=== PATIENT | female | born 1970 | race Caucasian/White ===

== ENCOUNTER 2017-08-19 08:32 | Outpatient (RCR) | payer BC ==
[~2017-08-19 08:32] MED LIST: BIRTH CONTROL PO; ENAL20TA PO; FLUO20CA25 PO; HYDR-3583 PO; MULT1CAP27 PO; OMEP20CA6 PO; PANT40TA2 PO
[2017-08-19 08:47] LABS: BASOPHILS # (AUTO) 0.1 10^3/uL (0.0-0.1); BASOPHILS % (AUTO) 1 % (0-10); EOSINOPHILS # (AUTO) 1.7 10^3/uL (0.0-0.3); EOSINOPHILS % (AUTO) 18 % (0-10); HEMATOCRIT 38 % (35-52); HEMOGLOBIN 12.5 G/DL (11.5-16.0); LYMPHOCYTES # (AUTO) 3.8 X 10^3 (1.0-4.0); LYMPHOCYTES % (AUTO) 38 % (12-44); MEAN CORPUSCULAR HEMOGLOBIN 28 PG (25-34); MEAN CORPUSCULAR HGB CONC 33 G/DL (32-36); MEAN CORPUSCULAR VOLUME 85 FL (80-99); MEAN PLATELET VOLUME 10.5 FL (7.4-10.4); MONOCYTES # (AUTO) 0.6 X 10^3 (0.0-1.0); MONOCYTES % (AUTO) 6 % (0-12); NEUTROPHILS # (AUTO) 3.7 X 10^3 (1.8-7.8); NEUTROPHILS % (AUTO) 38 % (42-75); PLATELET COUNT 367 10^3/uL (130-400); RED CELL DISTRIBUTION WIDTH 12.7 % (10.0-14.5); WHITE BLOOD COUNT 9.9 10^3/uL (4.3-11.0)
[2017-08-19 09:02] LABS: ALANINE AMINOTRANSFERASE 22 U/L (0-55); ALBUMIN 3.7 GM/DL (3.2-4.5); ALKALINE PHOSPHATASE 99 U/L (40-136); BILIRUBIN,TOTAL 0.3 MG/DL (0.1-1.0); BUN/CREATININE RATIO 15; CALCIUM 9.7 MG/DL (8.5-10.1); CARBON DIOXIDE 28 MMOL/L (21-32); CHLORIDE 106 MMOL/L (98-107); CREATININE SERUM 0.71 MG/DL (0.60-1.30); GFR ESTIMATED > 60; GLUCOSE 95 MG/DL (70-105); POTASSIUM 4.6 MMOL/L (3.6-5.0); SODIUM 142 MMOL/L (135-145)
[2017-11-05] MEDS ORDERED: ENAL20TA PO (11:17)
[2017-11-05] MEDS ORDERED: FISH1CAP15 PO (11:17)
[2017-11-05] MEDS ORDERED: ETHI1TAB PO (11:17)
[2017-11-05] MEDS ORDERED: NAPR220T66 PO (11:17)
[2017-11-05] MEDS ORDERED: OMEP20TA7 PO (11:17)
[2017-11-12] MEDS ORDERED: OXYC-197 PO (07:33)
== END 2017-11-17 | disposition home or self-care (01) ==
LOC: ONC 08:32
PROVIDERS: ATTEND Internal Medicine Hematology & Oncology
DX: D12.1 Benign neoplasm of appendix (principal); I10 Essential (primary) hypertension; E78.5 Hyperlipidemia, unspecified; Z79.899 Other long term (current) drug therapy
CPT/HCPCS: 36415; 80053; 82378; 85025; 99213

== ENCOUNTER → 2017-08-25 | Outpatient (CLI) | payer BC ==
--- NOTE | 2017-08-25 11:44 | Diagnostic Imaging Report ---
Bilateral screening mammogram 2D views with tomosynthesis The current study was also evaluated with a Computer Aided Detection (CAD) system. INDICATION: Screening. No current complaints stated on the questionnaire. COMPARISON: 08/28/16 FINDINGS: The breasts are composed of scattered fibroglandular densities. Benign-appearing calcifications are seen. Allowing for technique and positional differences, no suspicious change is seen. IMPRESSION: No significant change. ACR BI-RADS Category 2: Benign findings. Result letter will be mailed to the patient. Note: At least 10% of breast cancer is not imaged by mammography. Dictated by: Dictated on workstation # [id number]
== END ==
LOC: RAD 07:11
PROVIDERS: ATTEND Obstetrics & Gynecology
DX: Z12.31 Encounter for screening mammogram for malignant neoplasm of breast (principal)
CPT/HCPCS: 77067

== ENCOUNTER 2017-11-05 11:04 | Outpatient (CLI) | payer BC ==
[~2017-11-05] VITALS: Ht 149.9 cm; Wt 80.6 kg
[2017-11-05] MEDS ORDERED: FISH1CAP15 PO (11:17)
[2017-11-05] MEDS ORDERED: NAPR220T66 PO (11:17)
[2017-11-05] MEDS ORDERED: ETHI1TAB PO (11:17)
[2017-11-05] MEDS ORDERED: OMEP20TA7 PO (11:17)
[2017-11-05] MEDS ORDERED: ENAL20TA PO (11:17)
[2017-11-05 11:21] VITALS: BP 129/90
[2017-11-05 11:54] LABS: BILIRUBIN,URINE NEGATIVE (NEGATIVE); KETONES,URINE NEGATIVE (NEGATIVE); LEUKOCYTE ESTERASE ,URINE 1+ (NEGATIVE); NITRITE,URINE NEGATIVE (NEGATIVE); PH,URINE 8 (5-9); PROTEIN,URINE NEGATIVE (NEGATIVE); UROBILINOGEN,URINE NORMAL (NORMAL)
[2017-11-05 11:55] LABS: BASOPHILS # (AUTO) 0.1 10^3/uL (0.0-0.1); BASOPHILS % (AUTO) 1 % (0-10); EOSINOPHILS # (AUTO) 0.8 10^3/uL (0.0-0.3); EOSINOPHILS % (AUTO) 10 % (0-10); LYMPHOCYTES # (AUTO) 3.2 X 10^3 (1.0-4.0); LYMPHOCYTES % (AUTO) 42 % (12-44); MEAN CORPUSCULAR HEMOGLOBIN 28 PG (25-34); MEAN CORPUSCULAR HGB CONC 33 G/DL (32-36); MEAN CORPUSCULAR VOLUME 83 FL (80-99); MEAN PLATELET VOLUME 10.9 FL (7.4-10.4); MONOCYTES # (AUTO) 0.5 X 10^3 (0.0-1.0); MONOCYTES % (AUTO) 7 % (0-12); NEUTROPHILS # (AUTO) 3.1 X 10^3 (1.8-7.8); NEUTROPHILS % (AUTO) 41 % (42-75); PLATELET COUNT 383 10^3/uL (130-400); RED BLOOD COUNT 4.38 10^6/uL (4.35-5.85); RED CELL DISTRIBUTION WIDTH 12.8 % (10.0-14.5); WHITE BLOOD COUNT 7.7 10^3/uL (4.3-11.0)
[2017-11-05 12:02] LABS: WBC,URINE RARE /HPF
[2017-11-05 12:04] LABS: INR 0.9 (0.8-1.4); PROTHROMBIN TIME PATIENT 12.5 SEC (12.2-14.7)
[2017-11-05 12:20] LABS: ALANINE AMINOTRANSFERASE 16 U/L (0-55); ALBUMIN 3.7 GM/DL (3.2-4.5); ANION GAP 9 MMOL/L (5-14); ASPARTATE AMINO TRANSFERASE 17 U/L (5-34); BILIRUBIN,TOTAL 0.2 MG/DL (0.1-1.0); BLOOD UREA NITROGEN 11 MG/DL (7-18); BUN/CREATININE RATIO 14; CALCIUM 9.4 MG/DL (8.5-10.1); CARBON DIOXIDE 25 MMOL/L (21-32); CHLORIDE 106 MMOL/L (98-107); CREATININE SERUM 0.76 MG/DL (0.60-1.30); GFR ESTIMATED > 60; GLUCOSE 95 MG/DL (70-105); POTASSIUM 4.2 MMOL/L (3.6-5.0); SODIUM 140 MMOL/L (135-145); TOTAL PROTEIN 6.9 GM/DL (6.4-8.2)
[2017-11-05 12:24] LABS: ERYTHROCYTE SEDIMENTATION RATE 20 MM/HR (0-20)
--- NOTE | 2017-11-05 12:31 | Diagnostic Imaging Report ---
INDICATION: Preoperative right total knee arthroplasty. EXAMINATION: Two-view chest 11/05/2017. FINDINGS: The cardiomediastinal silhouette is unremarkable. The pulmonary vasculature is within normal limits. The lungs and pleural spaces are clear. IMPRESSION: No evidence of an acute cardiopulmonary process. Dictated by: Dictated on workstation # [id number]
== END 2017-11-05 13:13 | disposition home or self-care (01) ==
LOC: PREOP 11:04
PROVIDERS: ATTEND Orthopaedic Surgery
DX: Z01.810 Encounter for preprocedural cardiovascular examination (principal); Z01.811 Encounter for preprocedural respiratory examination; Z01.812 Encounter for preprocedural laboratory examination; Z11.2 Encounter for screening for other bacterial diseases; M17.11 Unilateral primary osteoarthritis, right knee; R53.83 Other fatigue
CPT/HCPCS: 36415; 71020; 80053; 81000; 85025; 85610; 85652; 86850; 86900; 86901; 87081; 93005

== ENCOUNTER 2017-11-12 06:00 | Inpatient (IN) | payer BC ==
--- NOTE | 2017-11-04 15:32 | HISTORY AND PHYSICAL ---
DATE OF SERVICE: REASON FOR ADMISSION: This will be for right total knee arthroplasty. HISTORY OF PRESENT ILLNESS: The patient is a 47-year-old female with complaints of right knee pain. She has undergone injections with only temporary relief of her symptoms. She reports activity limitations because of the knee. She denies recent injury, but reports that this has progressed to the point where interfering with activities of daily living. Due to functional impairment and failure to improve with conservative measures, the patient has elected to proceed with surgical intervention. REVIEW OF SYSTEMS: No chest pain. No shortness of breath. No dysuria. PAST MEDICAL HISTORY: Migraines. PAST SURGICAL HISTORY: Appendectomy and . FAMILY HISTORY: Significant for cardiovascular disease, Alzheimer disease, breast cancer. PRIMARY CARE PROVIDER: Dr. Diana. MEDICATIONS: Enalapril, Ocella, Claritin-D, fluoxetine, zolpidem and Aleve. ALLERGIES: SULFA. SOCIAL HISTORY: The patient drinks alcohol socially, but denies tobacco use. RADIOGRAPHS: Reveal complete loss of medial and patellofemoral joint spaces with osteophyte formation in all 3 compartments. PHYSICAL EXAMINATION: GENERAL: The patient is well developed, well nourished, in no acute distress. HEENT: Normocephalic, atraumatic. Pupils are equal, round and reactive to light. Oropharynx is clear. NECK: Supple, no lymphadenopathy. LUNGS: Clear to auscultation bilaterally. HEART: Regular rate and rhythm. ABDOMEN: Soft, nontender, nondistended. EXTREMITIES: The right knee demonstrates patellofemoral crepitus and pain with patellar loading. There is no varus valgus laxity. Negative anterior and posterior drawer. Range of motion 0/3/125. The patient ambulates with an antalgic gait. IMPRESSION: Severe right knee osteoarthritis, unresponsive to conservative measures. PLAN: Right total knee arthroplasty. The risks, benefits, options, ramifications and recovery have been discussed at length with the patient. She understands and wishes to proceed. Job ID: [id number] DocumentID: [id number] Dictated Date: 11/04/2017 13:00:54 Shoe Turner Date: 11/04/2017 15:31:48 Dictated By: MARS ENGLE MD
[~2017-11-12] VITALS: Ht 149.9 cm; Wt 80.6 kg
[~2017-11-12 06:00] MED LIST changes: +ETHI1TAB PO; +FISH1CAP15 PO; +NAPR220T66 PO; +OMEP20TA7 PO
--- OUTSIDE RECORDS SUMMARY | 2017-11-12 06:43 | XMS REPORT ---
Author Author HELGA THOMAS [facility] eClinical[employer] Address Unknown Phone Unavailable Care Team Providers Care Logistics Assistant Name Role Phone HELGA THOMAS Unavailable Allergies No Known Allergies Problems Problem Type Condition Code Onset Dates Condition Status Assessment Encounter for immunization Z23 Active Problem Need for prophylactic vaccination and inoculation, Influenza V04.81 Active Medications No Known Medications Procedures Procedure Coding System Code Date SINGLE IMMUNIZATION ADMIN CPT-4 88634 Aug 12, 2016 FLUARIX QUAD P-FREE 3 AND UP .50 2015 CPT-4 00892 Aug 12, 2016 Results No Known Results Immunizations Vaccine Administration Date FLUARIX QUAD P-FREE 3 AND UP .50 2015Aug 12, 2016 Summary Purpose eClinicalWorks Submission
[2017-11-12] MEDS ORDERED: CEFUROXIME 1.5 GM (ZINACEF) VIAL ONE ×2 (06:44→06:48)
[2017-11-12] MEDS ORDERED: NS (IVPB) 50 ML ONE ×2 (06:44→06:48)
--- OUTSIDE RECORDS SUMMARY | 2017-11-12 06:44 | XMS REPORT | Continuity of Care Document ---
Author Author [facility] Organization [facility] Address Unknown Phone Unavailable Allergies Active Description Code Type Severity Reaction Onset Reported/Identified Relationship to Patient Clinical Status Yes No Known Drug Allergies [id number] Drug Allergy Unknown N/A 03/26/2016 Medications There is no data. Problems Date Dx Coded Attending Type Code Diagnosis Diagnosed By 09/23/2014 FIOR GALVIN, TAMI Curry Ot V76.12 09/06/2015 KATHY GALVIN, JOSE Ot D12.1 09/06/2015 KATHY GALVIN, JOSE Ot E78.5 09/06/2015 KATHY GALVIN, JOSE Ot I10 09/06/2015 KATHY GALVIN, JOSE Ot M25.561 09/06/2015 KATHY GALVIN, JOSE Ot M25.562 09/11/2015 FIOR GALVIN, TAMI Curry Ot Z12.39 09/11/2015 FIOR GALVIN, TAMI Curry Ot Z12.39 09/13/2015 FIOR GALVIN, TAMI Curry Ot Z12.39 09/27/2015 FIOR GALVIN, TAMI Curry Ot Z12.39 03/19/2016 KATHY GALVIN, JOSE Ot D12.1 BENIGN NEOPLASM OF APPENDIX 03/19/2016 JOSE CHAVEZ MD Ot E78.5 HYPERLIPIDEMIA, UNSPECIFIED 03/19/2016 JOSE CHAVEZ MD Ot I10 ESSENTIAL (PRIMARY) HYPERTENSION 03/24/2016 JOSE CHAVEZ MD Ot D12.1 BENIGN NEOPLASM OF APPENDIX 03/24/2016 JOSE CHAVEZ MD Ot E78.5 HYPERLIPIDEMIA, UNSPECIFIED 03/24/2016 JOSE CHAVEZ MD Ot I10 ESSENTIAL (PRIMARY) HYPERTENSION 03/25/2016 FIOR GALVIN, TAMI Curry Ot V76.12 OTH SCREEN MAMMO-MALIGN NEOPLASM OF CARLOS ENRIQUE 03/25/2016 ELIZABETH GALVIN, JOSE R Ot 789.00 ABDOMINAL PAIN, UNSPECIFIED SITE 03/25/2016 ELIZABETH GALVIN, JOSE R Ot 789.59 OTHER ASCITES 03/25/2016 JOSE CHAVEZ MD Ot 153.5 MALIGNANT EARLE APPENDIX 03/25/2016 JOSE CHAVEZ MD Ot 272.4 HYPERLIPIDEMIA NEC/NOS 03/25/2016 JOSE CHAVEZ MD Ot 401.9 HYPERTENSION NOS 03/25/2016 JOSE CHAVEZ MD, Ot V58.69 OTH MED,LT,CURRENT USE 03/25/2016 TAMI CHILDRESS MD, Ot V76.12 OTH SCREEN MAMMO-MALIGN NEOPLASM OF CARLOS ENRIQUE 03/25/2016 TAMI CHILDRESS MD, Ot Z12.39 ENCOUNTER FOR OTH SCREENING FOR MALIGNAN 03/25/2016 JOSE CHAVEZ MD, Ot D12.1 BENIGN NEOPLASM OF APPENDIX 03/25/2016 JOSE CHAVEZ MD Ot E78.5 HYPERLIPIDEMIA, UNSPECIFIED 03/25/2016 JOSE CHAVEZ MD Ot I10 ESSENTIAL (PRIMARY) HYPERTENSION 03/25/2016 JOSE CHAVEZ MD Ot M25.561 PAIN IN RIGHT KNEE 03/25/2016 JOSE CHAVEZ MD Ot M25.562 PAIN IN LEFT KNEE 03/25/2016 JOSE CHAVEZ MD, Ot D12.1 BENIGN NEOPLASM OF APPENDIX 03/25/2016 JOSE CHAVEZ MD Ot E78.5 HYPERLIPIDEMIA, UNSPECIFIED 03/25/2016 JOSE CHAVEZ MD Ot I10 ESSENTIAL (PRIMARY) HYPERTENSION 03/26/2016 NAPOLEON BARRAZA MD Ot K21.9 GASTRO-ESOPHAGEAL REFLUX DISEASE WITHOUT 03/26/2016 NAPOLEON BARRAZA MD Ot Z01.818 ENCOUNTER FOR OTHER PREPROCEDURAL EXAMIN 03/26/2016 NAPOLEON BARRAZA MD Ot Z12.11 ENCOUNTER FOR SCREENING FOR MALIGNANT NE 03/27/2016 NAPOLEON BARRAZA MD Ot K21.9 GASTRO-ESOPHAGEAL REFLUX DISEASE WITHOUT 03/27/2016 NAPOLEON BARRAZA MD Ot Z01.818 ENCOUNTER FOR OTHER PREPROCEDURAL EXAMIN 03/27/2016 NAPOLEON BARRAZA MD Ot Z12.11 ENCOUNTER FOR SCREENING FOR MALIGNANT NE 03/29/2016 NAPOLEON BARRAZA MD Ot K21.0 GASTRO-ESOPHAGEAL REFLUX DISEASE WITH ES 03/29/2016 NAPOLEON BARRAZA MD Ot K29.70 GASTRITIS, UNSPECIFIED, WITHOUT BLEEDING 03/29/2016 NAPOLEON BARRAZA MD Ot K44.9 DIAPHRAGMATIC HERNIA WITHOUT OBSTRUCTION 03/29/2016 NAPOLEON BARRAZA MD Ot K64.0 FIRST DEGREE HEMORRHOIDS 03/29/2016 NAPOLEON BARRAZA MD Ot Z12.11 ENCOUNTER FOR SCREENING FOR MALIGNANT NE 03/29/2016 NAPOLEON BARRAZA MD Ot Z85.038 PERSONAL HISTORY OF MALIGNANT NEOPLASM O 04/01/2016 NAPOLEON BARRAZA MD Ot K21.0 GASTRO-ESOPHAGEAL REFLUX DISEASE WITH ES 04/01/2016 NAPOLEON BARRAZA MD Ot K29.70 GASTRITIS, UNSPECIFIED, WITHOUT BLEEDING 04/01/2016 NAPOLEON BARRAZA MD Ot K44.9 DIAPHRAGMATIC HERNIA WITHOUT OBSTRUCTION 04/01/2016 NAPOLEON BARRAZA MD Ot K64.0 FIRST DEGREE HEMORRHOIDS 04/01/2016 NAPOLEON BARRAZA MD, Ot Z12.11 ENCOUNTER FOR SCREENING FOR MALIGNANT NE 04/01/2016 NAPOLEON BARRAZA MD Ot Z85.038 PERSONAL HISTORY OF MALIGNANT NEOPLASM O 04/09/2016 JOSE CHAVEZ MD Ot D12.1 BENIGN NEOPLASM OF APPENDIX 04/09/2016 JOSE CHAVEZ MD Ot E78.5 HYPERLIPIDEMIA, UNSPECIFIED 04/09/2016 JOSE CHAVEZ MD Ot I10 ESSENTIAL (PRIMARY) HYPERTENSION 04/11/2016 JOSE CHAVEZ MD Ot D12.1 BENIGN NEOPLASM OF APPENDIX 04/11/2016 JOSE CHAVEZ MD Ot E78.5 HYPERLIPIDEMIA, UNSPECIFIED 04/11/2016 JOSE CHAVEZ MD Ot I10 ESSENTIAL (PRIMARY) HYPERTENSION 05/02/2016 JOSE CHAVEZ MD Ot D12.1 BENIGN NEOPLASM OF APPENDIX 05/02/2016 JOSE CHAVEZ MD Ot E78.5 HYPERLIPIDEMIA, UNSPECIFIED 05/02/2016 JOSE CHAVEZ MD Ot I10 ESSENTIAL (PRIMARY) HYPERTENSION 08/22/2016 JOSE CHAVEZ MD Ot D12.1 BENIGN NEOPLASM OF APPENDIX 08/22/2016 JOSE CHAVEZ MD Ot E78.5 HYPERLIPIDEMIA, UNSPECIFIED 08/22/2016 JOSE CHAVEZ MD Ot I10 ESSENTIAL (PRIMARY) HYPERTENSION 08/22/2016 KATHY GALVIN, JOSE Ot Z79.899 OTHER DETENTION (CURRENT) DRUG THERAPY 08/28/2016 TAMI CHILDRESS MD, Ot V76.12 OTH SCREEN MAMMO-MALIGN NEOPLASM OF CARLOS ENRIQUE 08/28/2016 ELIZABETH GALVIN, JOSE R Ot 789.00 ABDOMINAL PAIN, UNSPECIFIED SITE 08/28/2016 ELIZABETH GALVIN, JOSE R Ot 789.59 OTHER ASCITES 08/28/2016 JOSE CHAVEZ MD Ot 153.5 MALIGNANT EARLE APPENDIX 08/28/2016 JOSE CHAVEZ MD Ot 272.4 HYPERLIPIDEMIA NEC/NOS 08/28/2016 JOSE CHAVEZ MD Ot 401.9 HYPERTENSION NOS 08/28/2016 JOSE CHAVEZ MD, Ot V58.69 OTH MED,LT,CURRENT USE 08/28/2016 TAMI CHILDRESS MD, Ot V76.12 OTH SCREEN MAMMO-MALIGN NEOPLASM OF CARLOS ENRIQUE 08/28/2016 TAMI CHILDRESS MD, Ot Z12.39 ENCOUNTER FOR OTH SCREENING FOR MALIGNAN 08/28/2016 JOSE CHAVEZ MD Ot D12.1 BENIGN NEOPLASM OF APPENDIX 08/28/2016 JOSE CHAVEZ MD Ot E78.5 HYPERLIPIDEMIA, UNSPECIFIED 08/28/2016 JOSE CHAVEZ MD Ot I10 ESSENTIAL (PRIMARY) HYPERTENSION 08/28/2016 JOSE CHAVEZ MD Ot M25.561 PAIN IN RIGHT KNEE 08/28/2016 JOSE CHAVEZ MD Ot M25.562 PAIN IN LEFT KNEE 08/28/2016 JOSE CHAVEZ MD Ot D12.1 BENIGN NEOPLASM OF APPENDIX 08/28/2016 JOSE CHAVEZ MD Ot E78.5 HYPERLIPIDEMIA, UNSPECIFIED 08/28/2016 JOSE CHAVEZ MD Ot I10 ESSENTIAL (PRIMARY) HYPERTENSION 08/28/2016 JOSE CHAVEZ MD Ot D12.1 BENIGN NEOPLASM OF APPENDIX 08/28/2016 JOSE CHAVEZ MD Ot E78.5 HYPERLIPIDEMIA, UNSPECIFIED 08/28/2016 JOSE CHAVEZ MD Ot I10 ESSENTIAL (PRIMARY) HYPERTENSION 08/28/2016 JOSE CHAVEZ MD Ot D12.1 BENIGN NEOPLASM OF APPENDIX 08/28/2016 JOSE CHAVEZ MD Ot E78.5 HYPERLIPIDEMIA, UNSPECIFIED 08/28/2016 JOSE CHAVEZ MD Ot I10 ESSENTIAL (PRIMARY) HYPERTENSION 08/28/2016 JOSE CHAVEZ MD Ot Z79.899 OTHER DETENTION (CURRENT) DRUG THERAPY 08/28/2016 TAMI CHILDRESS MD Ot Z12.31 ENCNTR SCREEN MAMMOGRAM FOR MALIGNANT NE 08/29/2016 TAMI CHILDRESS MD Ot Z12.31 ENCNTR SCREEN MAMMOGRAM FOR MALIGNANT NE 09/03/2016 TAMI CHILDRESS MD Ot Z12.31 ENCNTR SCREEN MAMMOGRAM FOR MALIGNANT NE 09/05/2016 JOSE CHAVEZ MD Ot D12.1 BENIGN NEOPLASM OF APPENDIX 09/05/2016 JOSE CHAVEZ MD Ot E78.5 HYPERLIPIDEMIA, UNSPECIFIED 09/05/2016 JOSE CHAVEZ MD Ot I10 ESSENTIAL (PRIMARY) HYPERTENSION 09/05/2016 JOSE CHAVEZ MD Ot Z79.899 OTHER DETENTION (CURRENT) DRUG THERAPY 10/07/2016 JOSE CHAVEZ MD Ot D12.1 BENIGN NEOPLASM OF APPENDIX 10/07/2016 JOSE CHAVEZ MD Ot E78.5 HYPERLIPIDEMIA, UNSPECIFIED 10/07/2016 JOSE CHAVEZ MD Ot I10 ESSENTIAL (PRIMARY) HYPERTENSION 10/07/2016 JOSE CHAVEZ MD Ot Z79.899 OTHER SALES CLOSER (CURRENT) DRUG THERAPY 10/10/2016 Ot 789.59 OTHER ASCITES 08/20/2017 JOSE CHAVEZ MD Ot D12.1 BENIGN NEOPLASM OF APPENDIX 08/20/2017 JOSE CHAVEZ MD Ot E78.5 HYPERLIPIDEMIA, UNSPECIFIED 08/20/2017 JOSE HCAVEZ MD Ot I10 ESSENTIAL (PRIMARY) HYPERTENSION 08/20/2017 JOSE CHAVEZ MD Ot Z79.899 OTHER SALES CLOSER (CURRENT) DRUG THERAPY 09/04/2017 TAMI CHILDRESS MD Ot Z12.31 ENCNTR SCREEN MAMMOGRAM FOR MALIGNANT NE 10/01/2017 JOSE CHAVEZ MD Ot D12.1 BENIGN NEOPLASM OF APPENDIX 10/01/2017 JOSE CHAVEZ MD Ot E78.5 HYPERLIPIDEMIA, UNSPECIFIED 10/01/2017 KATHY GALVIN, JOSE Ot I10 ESSENTIAL (PRIMARY) HYPERTENSION 10/01/2017 JOSE CHAVEZ MD Ot Z79.899 OTHER DETENTION (CURRENT) DRUG THERAPY Procedures There is no data. Results Test Result Range Complete blood count (CBC) with automated white blood cell (WBC) differential - 11/05/17 11:30 Blood leukocytes automated count (number/volume) 7.7 10*3/uL 4.3-11.0 Blood erythrocytes automated count (number/volume) 4.38 10*6/uL 4.35-5.85 Venous blood hemoglobin measurement (mass/volume) 12.2 g/dL 11.5-16.0 Blood hematocrit (volume fraction) 37 % 35-52 Automated erythrocyte mean corpuscular volume 83 [foz_us] 80-99 Automated erythrocyte mean corpuscular hemoglobin (mass per erythrocyte) 28 pg 25-34 Automated erythrocyte mean corpuscular hemoglobin concentration measurement ( mass/volume) 33 g/dL 32-36 Automated erythrocyte distribution width ratio 12.8 % 10.0-14.5 Automated blood platelet count (count/volume) 383 10*3/uL 130-400 Automated blood platelet mean volume measurement 10.9 [foz_us] 7.4-10.4 Automated blood neutrophils/100 leukocytes 41 % 42-75 Automated blood lymphocytes/100 leukocytes 42 % 12-44 Blood monocytes/100 leukocytes 7 % 0-12 Automated blood eosinophils/100 leukocytes 10 % 0-10 Automated blood basophils/100 leukocytes 1 % 0-10 Blood neutrophils automated count (number/volume) 3.1 10*3 1.8-7.8 Blood lymphocytes automated count (number/volume) 3.2 10*3 1.0-4.0 Blood monocytes automated count (number/volume) 0.5 10*3 0.0-1.0 Automated eosinophil count 0.8 10*3/uL 0.0-0.3 Automated blood basophil count (count/volume) 0.1 10*3/uL 0.0-0.1 PT panel in platelet poor plasma by coagulation assay - 11/05/17 11:30 Prothrombin time (PT) in platelet poor plasma by coagulation assay 12.5 s 12.2-14.7 INR in platelet poor plasma or blood by coagulation assay 0.9 0.8-1.4 Comprehensive metabolic panel - 11/05/17 11:30 Serum or plasma sodium measurement (moles/volume) 140 mmol/L 135-145 Serum or plasma potassium measurement (moles/volume) 4.2 mmol/L 3.6-5.0 Serum or plasma chloride measurement (moles/volume) 106 mmol/L 98-107 Carbon dioxide 25 mmol/L 21-32 Serum or plasma anion gap determination (moles/volume) 9 mmol/L 5-14 Serum or plasma urea nitrogen measurement (mass/volume) 11 mg/dL 7-18 Serum or plasma creatinine measurement (mass/volume) 0.76 mg/dL 0.60-1.30 Serum or plasma urea nitrogen/creatinine mass ratio 14 NRG Serum or plasma creatinine measurement with calculation of estimated glomerular filtration rate > NRG Serum or plasma glucose measurement (mass/volume) 95 mg/dL 70-105 Serum or plasma calcium measurement (mass/volume) 9.4 mg/dL 8.5-10.1 Serum or plasma total bilirubin measurement (mass/volume) 0.2 mg/dL 0.1-1.0 Serum or plasma alkaline phosphatase measurement (enzymatic activity/volume) 72 U/L 40-136 Serum or plasma aspartate aminotransferase measurement (enzymatic activity/ volume) 17 U/L 5-34 Serum or plasma alanine aminotransferase measurement (enzymatic activity/volume ) 16 U/L 0-55 Serum or plasma protein measurement (mass/volume) 6.9 g/dL 6.4-8.2 Serum or plasma albumin measurement (mass/volume) 3.7 g/dL 3.2-4.5 Erythrocyte sedimentation rate by westergren method - 11/05/17 11:30 Erythrocyte sedimentation rate by westergren method 20 mm 0-20 Blood type T Indirect antibody screen panel - 11/05/17 11:30 ABO+Rh group ON NRG Blood group antibody screen NEGATIVE NRG Methicillin resistant Staphylococcus aureus (MRSA) screening culture - 11:35 Methicillin resistant Staphylococcus aureus (MRSA) screening culture NEG NRG Complete urinalysis with reflex to culture - 11/05/17 11:40 Urine color determination YELLOW NRG Urine clarity determination CLEAR NRG Urine pH measurement by test strip 8 5-9 Specific gravity of urine by test strip 1.010 1.016- 1.022 Urine protein assay by test strip, semi-quantitative NEGATIVE NEGATIVE Urine glucose detection by automated test strip NEGATIVE NEGATIVE Erythrocytes detection in urine sediment by light microscopy NEGATIVE NEGATIVE Urine ketones detection by automated test strip NEGATIVE NEGATIVE Urine nitrite detection by test strip NEGATIVE NEGATIVE Urine total bilirubin detection by test strip NEGATIVE NEGATIVE Urine urobilinogen measurement by automated test strip (mass/volume) NORMAL NORMAL Urine leukocyte esterase detection by dipstick 1+ NEGATIVE Automated urine sediment erythrocyte count by microscopy (number/high power field) RARE NRG Automated urine sediment leukocyte count by microscopy (number/high power field ) RARE NRG Bacteria detection in urine sediment by light microscopy TRACE NRG Squamous epithelial cells detection in urine sediment by light microscopy 5-10 NRG Crystals detection in urine sediment by light microscopy NONE NRG Casts detection in urine sediment by light microscopy NONE NRG Mucus detection in urine sediment by light microscopy NEGATIVE NRG Complete urinalysis with reflex to culture NO NRG Encounters ACCT No. Visit Date/Time Discharge Status Pt. Type Provider Facility Loc./Unit Complaint [id number] 08/25/2017 07:11:00 08/25/2017 23:59:59 CLS Outpatient TAMI CHILDRESS MD [facility] RAD ROUTINE [id number] 08/19/2017 08:32:00 08/19/2017 23:59:59 CLS Outpatient JOSE CHAVEZ MD [facility] ONC [id number] 08/28/2016 06:55:00 08/28/2016 23:59:59 CLS Outpatient TAMI CHILDRESS MD [facility] RAD ROUTINE [id number] 08/20/2016 08:35:00 08/20/2016 23:59:59 CLS Outpatient JOSE CHAVEZ MD [facility] ONC [id number] 04/10/2016 14:32:00 04/10/2016 23:59:59 CLS Outpatient JOSE CHAVEZ MD [facility] ONC [id number] 03/29/2016 08:57:00 03/29/2016 13:10:00 DIS Outpatient NAPOLEON BARRAZA MD [facility] SDC SCREENING/REFLEX [id number] 03/26/2016 05:33:00 03/26/2016 15:41:00 DIS Outpatient NAPOLEON BARRAZA MD [facility] PREOP SCREENING,REFLEX [id number] 03/18/2016 14:12:00 03/18/2016 23:59:59 CLS Outpatient JOSE CHAVEZ MD [facility] ONC [id number] 09/08/2015 07:08:00 09/08/2015 23:59:59 CLS Outpatient TAMI CHILDRESS MD [facility] RAD SCREENING [id number] 08/15/2015 08:25:00 08/15/2015 23:59:59 CLS Outpatient JOSE CHAVEZ MD [facility] ONC [id number] 09/05/2014 14:37:00 09/05/2014 23:59:59 CLS Outpatient TAMI CHILDRESS MD [facility] RAD SCREENING [id number] 08/15/2014 08:49:00 08/15/2014 23:59:59 CLS Outpatient JOSE CHAVEZ MD [facility] ONC [id number] 05/30/2014 10:45:00 05/30/2014 23:59:59 CLS Outpatient JOSE JOHNSON MD [facility] RAD ABD PAIN, [id number] 09/02/2013 11:04:00 09/02/2013 23:59:59 CLS Outpatient TAMI CHILDRESS MD [facility] RAD ROUTINE [id number] 08/04/2013 14:33:00 08/04/2013 23:59:59 CLS Outpatient [id number] 11/12/2017 08:00:00 TARA ENGLE MD, MARS Contreras RIGHT KNEE OSTEOARTHRITIS [id number] 11/05/2017 11:56:00 Document Registration [id number] 03/26/2016 15:37:00 Document Registration [id number] 05/17/2011 09:35:00 Document Registration
[2017-11-12] MEDS ORDERED: SCOPOLAMINE 1.5 MG (TRANSDERM-SCOP) PATCH TOP ONE (06:45)
[2017-11-12] MEDS ORDERED: ONDANSETRON 4 MG/2 ML (SDV) Z0FRAN IV ONE (06:45)
[2017-11-12] MEDS ORDERED: FAMOTIDINE 20MG/2ML IV (PEPCID) IV ONE (06:45)
[2017-11-12] MEDS ORDERED: CEFUROXIME INJECTION 1,500 MG in NS (IVPB) 50 ML IV ONE (06:45)
[2017-11-12] MEDS ORDERED: SEVOFLURANE (ULTANE) 15 ML INHAL SOLN ONE ×8 (06:46→09:10)
[2017-11-12] MEDS ORDERED: LIDOCAINE PF 2% 5 ML (XYLOCAINE) VIAL ONE (06:46)
[2017-11-12] MEDS ORDERED: DEXAMETHASONE 10 MG/ML (DECADRON) 1 ML VIAL ONE (06:46)
[2017-11-12] MEDS ORDERED: proPOfol 200 MG/20 ML (DIPRIVAN) VIAL IV ONE (06:46)
[2017-11-12] MEDS ORDERED: ONDANSETRON 4 MG/2 ML (SDV) Z0FRAN ONE (06:46)
[2017-11-12] MEDS ORDERED: fentaNYL INJECTION 100 MCG/2 ML AMP ONE ×2 (06:47→07:57)
[2017-11-12] MEDS ORDERED: MIDAZOLAM 2 MG/2 ML (VERSED) VIAL ONE (06:47)
[2017-11-12] MEDS: LACTATED RINGERS 1,000 ML IV PRN ×2 (06:54→07:55)
[2017-11-12] MEDS ORDERED: diphenhydrAMINE 50 MG/ML INJ (BENADRYL) IVP PRN (07:15)
[2017-11-12] MEDS ORDERED: ONDANSETRON 4 MG/2 ML (SDV) Z0FRAN IVP PRN (07:15)
[2017-11-12] MEDS ORDERED: ACETAMINOPHEN 325 MG TABLET/CAPLET (TYLENOL) PO PRN (07:15)
[2017-11-12] MEDS ORDERED: INTRA-ARTICULAR IU ONE ×5 (07:30)
--- NOTE | 2017-11-12 07:31 | Progress Note-Pre Operative ---
Pre-Operative Progress Note H&P Reviewed The H&P was reviewed, patient examined and no changes noted. Date Seen by Provider: Nov 12, 2017 Time Seen by Provider: 07:20 Date H&P Reviewed: Nov 12, 2017 Time H&P Reviewed: 07:11 Pre-Operative Diagnosis: right knee primary osteoarthritis MARS ENGLE MD Nov 12, 2017 07:30
--- NOTE | 2017-11-12 07:31 | Progress Note-Post Operative ---
Post-Operative Progess Note Surgeon (s)/Diesel Inspector (s) Surgeon MARS ENGLE MD Diesel Inspector: Sp Mcghee Pre-Operative Diagnosis right knee primary osteoarthritis Post-Operative Diagnosis right knee primary osteoarthritis Procedure & Operative Findings Date of Procedure 11/12/17 Procedure Performed/Findings right total knee arthroplasty Anesthesia Type GETA Estimated Blood Loss Estimated blood loss (mL): 150 ml Specimens/Packing Specimens Removed none Packing: none MARS ENGLE MD Nov 12, 2017 07:31
[2017-11-12] MEDS ORDERED: OXYC-197 PO (07:33)
--- NOTE | 2017-11-12 07:35 | D/C HH Face to Face Order ---
D/C Face to Face Orders Instructions for Patient Patient Instructions/FollowUp: three weeks Physician to follow Patient: three weeks Discharge Diet for Home: Regular Diet Patient Data-Allergies,Ht & Wt Patient Allergies: Coded Allergies: Sulfa (Sulfonamide Antibiotics) (Verified Allergy, Mild, ITCHING, 11/05/17 ) fentanyl (Unverified Allergy, Unknown, NAUSEA AND VOMITING, 11/12/17) Height (Feet): 4 Height (Inches): 11.00 Weight (Pounds): 177 Weight (Ounces): 11.2 Home Health Need/Face to Face Date of Face to Face: Nov 12, 2017 Clinical Findings: Instability, Muscle weakness, Non or partial weight bearing , Pain with ambulation, Unsteady gait I have seen Pt [id number]: Yes Discharged To: Home Diagnosis/Conditions: right total knee arthroplasty Problems/Diagnosis/Condition: Patient is Homebound due to: Muscle weakness, Pain w/ambulation Homebound Status Due to the above stated illness, injury or surgical procedure (medical condition or diagnosis) and associated clinical findings, the patient is homebound because of his/her inability to leave home except with aid of a supportive device and/or person AND leaving the home requires a considerable and taxing effort or is medically contraindicated. Pt req the following assistanc: [facility] Nursing Orders Home Health Services Order: Physical Therapy-Evaluate & Treat Home Health Infusion Therapy Line Start Date: Nov 12, 2017 Line Start Time: 614 Therapy Orders Therapy Orders: Physical Therapy Therapy Specific Orders: Eval assistive deivces, Teach enviro modifications/ safety, Gait training, Increase strength/endurance, Provider maintenance therapy , Restore ROM Certify Stmt I certify that this patient is under my care and that I, a nurse practitioner or a physician; a senior agricultural assistant working with me, had a face to face encounter that - meets the physician face to face encounter requirements with this patient as dated. MARS ENGLE MD Nov 12, 2017 07:35
[2017-11-12] MEDS ORDERED: morphine INJ 10 MG/ML 1ML (SYR OR VIAL) ONE (07:57)
[2017-11-12] MEDS ORDERED: meTOprolol 5 MG/5 ML (LOPRESSOR) VIAL ONE (09:28)
[2017-11-12] MEDS ORDERED: HYDROmorphone (DILAUDID) 2 MG/ML VIAL IVP PRN (09:30)
[2017-11-12] MEDS: morphine INJ 10 MG/ML 1ML (SYR OR VIAL) IVP PRN ×2 (09:45→09:50)
[2017-11-12] MEDS ORDERED: PROMETHAZINE INJ 25 MG/ML (PHENERGAN) AMP ONE (09:48)
--- NOTE | 2017-11-12 09:50 | Diagnostic Imaging Report ---
INDICATION: Postop evaluation. COMPARISON: None. FINDINGS: Two views of the right knee were obtained. There are postoperative changes of right knee arthroplasty. No unusual lucency or reactive change is seen about the prosthetic components which appear in good position. A Large amount of soft tissue gas is likely postoperative. There are skin susi seen ventral to the knee. IMPRESSION: Recent postoperative changes of right knee arthroplasty without evidence of an acute complicating process. Dictated by: Dictated on workstation # [id number]
[2017-11-12 10:20] VITALS: BP 126/68
[2017-11-12] MEDS: SENNA W/DOCUSATE (SENOKOT S) TABLET PO SCH ×2 (10:39→20:07)
[2017-11-12] MEDS: NS IV 1000 ML 1,000 ML IV SCH ×2 (11:30→15:32)
[2017-11-12 12:00] VITALS: BP 131/71
--- NOTE | 2017-11-12 12:10 | Progress Note-Standard ---
Standard Progress Note Progress Notes/Assess & Plan Date Seen by Provider: Nov 12, 2017 Time Seen by Provider: 12:00 Progress/Assessment & Plan post op check No complaints denies paresthesias Radiographs--HW well positioned without fxs RLE--2 plus DP pulse with brisk cap refill. Intact DF and PF of toes and ankle sensation intact throughout s/p RTKA mobilize as able MARS ENGLE MD Nov 12, 2017 12:10
[2017-11-12] MEDS: oxyCODONE/APAP 5/325MG (PERCOCET 5) TABLET PO PRN (13:01)
--- NOTE | 2017-11-12 13:39 | OPERATIVE REPORT ---
DATE OF SERVICE: 11/12/2017 PREOPERATIVE DIAGNOSIS: Right knee primary osteoarthritis. POSTOPERATIVE DIAGNOSIS: Right knee primary osteoarthritis. PROCEDURE: Right total knee arthroplasty. SURGEON: Emir Engle MD CATTLE SORTER: Sp Mcghee, who assisted throughout the procedure and closed the incision. ANESTHESIA: General endotracheal by Jeffrey Kelly CRNA. TOURNIQUET TIME: 75 minutes at 300 mmHg. ESTIMATED BLOOD LOSS: 150 mL. DRAINS: None. COMPLICATIONS: None. POSTOPERATIVE PLAN: Routine protocol. MATERIALS: MicroPort cemented size 2 femur, cemented size 2 tibia with a 17 mm insert and a cemented size 29 patella. STATEMENT OF MEDICAL NECESSITY: The patient is a 47-year-old female with longstanding progressive right knee pain. She had undergone treatment with extensive conservative modalities including activity modifications, anti-inflammatories and injections. She reported progressive functional impairment and due to failure to improve with conservative measures, the patient elected to proceed with surgical intervention. PROCEDURE: After risks and benefits of the procedure were discussed and questions were answered and informed consent was signed and placed on chart, the operative site was confirmed in pre-op holding area and initialed by the surgeon. The patient was then transported to the operating room and after adequate levels of general endotracheal anesthetic were obtained, time out was called to confirm the operative site. The right lower extremity was then prepped and draped in the usual sterile fashion with the leg elevated and the knee flexed. Tourniquet was inflated to 300 mmHg. A standard anterior approach was utilized. Hemostasis was obtained with cautery. A medial parapatellar arthrotomy was performed leaving a 1 cm cuff on the patella for later reattachment. A subperiosteal release was performed in the proximal medial tibia being careful to stay on the bony surface. The ACL was resected. The intramedullary guide was passed into the femur and the distal cutting block was placed. The distal cut was made and the femur sized to a size 2. The 2 cutting block was placed parallel to the epicondylar axis and cuts were made from posterior to anterior. A subperiosteal release was then performed on the posterior distal femur, being careful to stay on bony surface with a curved osteotome. The intramedullary guide was then passed into the tibia. The cutting block was placed. The drop talya transected the intermalleolar axis and the cut was made. The two baseplate was placed, pinned into position and again the drop talya was felt to be well positioned. The tibia was then prepared with a drill and keel punch. The trochlear cut was made on the femur. Trials were inserted. The patella was prepared using a freehand technique and resecting 10 mm off the undersurface. The peg guide was placed and peg holes were drilled. A 17 mm insert with a PCL release provided full extension, flexion greater than 120 degrees with gravity without difficulty. There was no anterior/posterior or medial/lateral laxity in flexion or extension. No mid flexion laxity was noted. The trials were removed. The joint was irrigated with pulse lavage. The periarticular block was placed in the posterior capsule, medial and lateral retinaculum and extensor mechanism. The joint was further irrigated with pulse lavage. The bone ends were irrigated and dried. The tibial baseplate was cemented into position. Excess cement was removed. The superior surface was irrigated and dried and the polyethylene insert was placed. The distal femur was irrigated and dried and the femoral prosthesis was cemented into position and excessive cement was removed. The knee was brought out into full extension until the cement had cured. The patella was irrigated and dried. The patellar button was cemented in position removing excessive cement. Once the cement had cured, the knee was taken through range of motion. The patella tracked well. There is no varus/valgus laxity or anterior/posterior laxity in flexion or extension. Greater than 120 degrees of flexion was obtained with gravity and full extension was easily obtained. The joint was further irrigated with pulse lavage. Arthrotomy was closed with #2 Tevdek in a [id number] fashion. The knee was flexed. The patella tracked well. The subcutaneous tissues were irrigated using a total of 6 liters throughout the procedure. 0 Vicryl was used for deep subcutaneous tissue, 2-0 Vicryl for the superficial subcutaneous tissue, susi used on the skin. A soft dressing was applied. Tourniquet was deflated. The patient was transferred to the recovery room awake in stable condition. Job ID: [id number] DocumentID: [id number] Dictated Date: 11/12/2017 09:27:11 [employer] Operator Date: 11/12/2017 10:08:04 Dictated By: EMIR ENGLE MD
[2017-11-12] MEDS: CEFUROXIME INJECTION 750 MG in NS (IVPB) 50 ML IV SCH ×2 (15:32→23:06)
--- NOTE | 2017-11-12 15:52 | Physical Therapy Evaluation ---
PT Evaluation-General Medical Diagnosis Admission Date Nov 12, 2017 at 06:00 Medical Diagnosis: right TKA Onset Date: Nov 12, 2017 Therapy Diagnosis Therapy Diagnosis: impaired mobility, strength, endurance, ROM Height/Weight Height (Feet): 4 Height (Inches): 11.00 Weight (Pounds): 177 Weight (Ounces): 11.2 Precautions Precautions/Isolations: Standard Precautions Weight Bear Status Right Lower Extremity: Right Weight Bearing/Tolerated Referral Physician: Sp Mcghee Reason for Referral: Evaluation/Treatment Medical History Additional Medical History PAST MEDICAL HISTORY: Migraines. PAST SURGICAL HISTORY: Appendectomy and . Social History Home: Single Level Current Living Status: Spouse Entry Into Home: Stairs Without Railing PT Steps Into Home: 2 Prior/Core FIM Prior Level of Function Functional [place] Measure 0=Not Assessed/NA 4=Minimal Assistance 1=Total Assistance 5=Supervision or Setup 2=Maximal Assistance 6=Modified [place] 3=Moderate Assistance 7=Complete [place] Bed Mobility: 7 Transfers (B,C,W/C) (FIM): 7 Gait: 7 PT Evaluation-Current Subjective Patient in bed pre tx, agrees to PT, has some pain in her right knee, but she states that it is also numb. She cannot dorsiflex her right foot yet. Pt/Family Goals to be independent at home Objective Patient Orientation: Person, Place, Situation Attachments: Polar Pack, IV ROM/Strength ROM Lower Extremities right knee flexion 80 degrees, extension +3 degrees Strength Lower Extremities NT due to recent surgery Neuromuscular (Tone, Coordination, Reflexes) NT Sensory Vision: Wears Glasses Hearing: Functional Sensation Right Lower Extremit: Impaired Sensation Left Lower Extremity: Intact Sensation Lower Extremities light touch sensation is impaired in the left leg below the knee Transfers Functional [place] Measure 0=Not Assessed/NA 4=Minimal Assistance 1=Total Assistance 5=Supervision or Setup 2=Maximal Assistance 6=Modified [place] 3=Moderate Assistance 7=Complete [place] Transfers (B, C, W/C) (FIM): 4 Scootin Rollin Supine to/from Sit: 5 Sit to/from Stand: 4 cues for hand placement and safety with standing, no complaints of light headedness with standing or sitting Gait Mode of Locomotion: Walk Anticipated Mode of Locomotion: Walk Gait (FIM): 1 Distance: 10' Gait Level of Assist: 4 Gait Persons Needed: 1 Gait Assistive Device: FWW Comments/Gait Description Patient just took a few steps forward and back and then to the side to get near the head of the bed. Patient is able to bear weight through her right leg but she has drop foot and ankle weakness due to nerve block. Balance Sitting Static: Normal Sitting Dynamic: Normal Standing Static: Fair Standing Dynamic: Fair Treatment standard TKA exercises in supine x10 (AP, QS, HS, SAQ, SLR), CPM donned and set at 60/-2 degrees Assessment/Needs Patient has impaired mobility, strength, endurance, ROM post right TKA, nerve block still wearing off Rehab Potential: Fair PT Short Term Goals Short Term Goals Time Frame: Nov 19, 2017 Transfers (B,C,W/C) (FIM): 5 Gait (FIM): 2 Gait Distance Comment: 50' Gait Level of Assist: 4 Gait Assistive Device: FWW PT Plan Problem List Problem List: Activity Tolerance, Functional Strength, Safety, Balance, Gait, Transfer, Bed Mobility, ROM Treatment/Plan Treatment Plan: Continue Plan of Care Treatment Plan: Bed Mobility, Education, Functional Activity Irene, Functional Strength, Gait, Safety, Therapeutic Exercise, Transfers Treatment Duration: Nov 19, 2017 Frequency: 11 times per week Estimated Hrs Per Day: .25 hour per day (15-30') Patient and/or Family Agrees t: Yes Safety Risks/Education Patient Education: Gait Training, Transfer Techniques, Reviewed Precautions, Reviewed Use of Ice, Correct Positioning, Disease Process, Safety Issues Teaching Recipient: Patient Teaching Methods: Demonstration, Discussion Response to Teaching: Reinforcement Needed Discharge Recommendations Plan Patient will perform bed mobility and transfer training, balance and endurance training, functional strengthening, stair training, gait training, and education , to improve functional mobility and independence at home. Therapy D/C Recommendations: Home w/ Family Support Time/GCodes Time In: 1520 Time Out: 1545 Total Billed Treatment Time: 25 Total Billed Treatment 1 visit EVL 15' GT 10' DULCE SOLIZ PT Nov 12, 2017 15:52
[2017-11-12 16:00] VITALS: BP 133/68
[2017-11-12] MEDS: morphine PCA 30 MG/30 ML VIAL IV PRN (19:54)
[2017-11-12 20:00] VITALS: BP 133/71
[2017-11-13 00:17] VITALS: BP 140/81
[2017-11-13] MEDS: NS IV 1000 ML 1,000 ML IV SCH ×2 (01:31→13:33)
[2017-11-13] MEDS: oxyCODONE/APAP 5/325MG (PERCOCET 5) TABLET PO PRN ×7 (01:31→20:37)
[2017-11-13 04:20] VITALS: BP 153/74
[2017-11-13] MEDS: MULTIVIT W/MINERALS TAB (THERAGRAN M) PO SCH (05:52)
[2017-11-13 06:41] LABS: HEMOGLOBIN 10.4 G/DL (11.5-16.0)
--- NOTE | 2017-11-13 07:54 | Progress Note-Standard ---
Standard Progress Note Progress Notes/Assess & Plan Date Seen by Provider: Nov 13, 2017 Time Seen by Provider: 07:53 Progress/Assessment & Plan post op check No complaints denies paresthesias Radiographs--HW well positioned without fxs RLE--2 plus DP pulse with brisk cap refill. Intact DF and PF of toes and ankle sensation intact throughout s/p RTKA mobilize as able Final Diagnosis No complaints Vital Signs Date Time Temp Pulse Resp B/P (MAP) Pulse Ox O2 Delivery O2 Flow Rate FiO2 11/13/17 05:53 20 11/13/17 04:20 98.1 89 18 153/74 (100) 99 Room Air 11/13/17 00:17 98.8 105 20 140/81 (100) 97 Room Air 11/12/17 20:00 99.1 102 20 133/71 (91) 98 Room Air 11/12/17 20:00 Room Air 11/12/17 16:00 98.8 100 20 133/68 (89) 94 Room Air 11/12/17 12:00 98.2 98 20 131/71 (91) 95 Room Air 11/12/17 10:20 98.0 90 20 126/68 (87) 95 Room Air I & O 11/13/17 07:00 Intake Total 3590 ml Output Total 1150 ml Balance 2440 ml Laboratory Tests Test 11/13/17 05:48 Range/Units Hemoglobin 10.4 L 11.5-16.0 G/DL Hematocrit 32 L 35-52 % RLE--dressing intact. No calf tenderness. Neg Otto. NVI distally s/p RTKA PT/OT MARS ENGLE MD Nov 13, 2017 07:54
[2017-11-13 08:00] VITALS: BP 176/91
[2017-11-13] MEDS ORDERED: ASPIRIN E.C. 81 MG (ECOTRIN) TAB PO SCH (08:00)
[2017-11-13] MEDS: ENOXAPARIN 30 MG/0.3 ML (LOVENOX) SYR SC SCH ×2 (08:20→20:36)
[2017-11-13] MEDS: SENNA W/DOCUSATE (SENOKOT S) TABLET PO SCH ×2 (08:21→20:35)
--- NOTE | 2017-11-13 09:11 | Physical Therapy Daily Note ---
PT Daily Note-Current Subjective Patient agrees to PT. c/o 8/10 right knee pain. Pain Numeric Pain Scale: 8 Location: Right Location Body Site: Knee Pain Description: Acute Comment: meds issued Mental Status Patient Orientation: Normal For Age Attachments: IV Transfers Functional [place] Measure 0=Not Assessed/NA 4=Minimal Assistance 1=Total Assistance 5=Supervision or Setup 2=Maximal Assistance 6=Modified [place] 3=Moderate Assistance 7=Complete IndependenceIRFPAI Quality Coding Scale 6 Independent with activity with or without an assistive device 5 Patient requires set up or clean up by helper. Patient completes activity by themselves 4 Supervision or touching assist (CGA). [place] provide cues , steadying assist 3 The helper provides less than half the effort to complete the activity 2 The helper provides more than half the effort to complete the activity 1 Dependent. The helper does all the effort to complete an activity 7 Patient refused to complete or attempt activity 9 The patient did not perform the activity before the current illness or injury 88 Not attempted due to Medical conditions or safety concerns Transfers (B, C, W/C) (FIM): 6 Scootin Supine to/from Sit: 6 Sit to/from Stand: 6 Weight Bearing Right Lower Extremity: Right Weight Bearing/Tolerated Left Lower Extremity: Left Full Weight Bearing Gait Training Gait (FIM): 5 Distance (FIM): 3=150 ft Distance: 250' Gait Level of Assist: 5 Gait Persons Needed: 1 Gait Assistive Device: FWW functional, antalgic gait sequence Exercises Supine Ex: Ankle pumps, Quad Set, Heel Slides, Straight leg raise Supine Reps: 15 Seated Therapy Exercises: Long arc quads Seated Reps: 15 Assessment Current Status: Excellent Progress Patient tolerated treatment very well and returned to bed with CPM and polar pack in place 0-60 degrees. PT Short Term Goals Short Term Goals Time Frame: Nov 19, 2017 Transfers (B,C,W/C) (FIM): 5 Gait (FIM): 2 Gait Distance Comment: 50' Gait Level of Assist: 4 Gait Assistive Device: FWW PT Plan Treatment/Plan Treatment Plan: Continue Plan of Care Treatment Plan: Bed Mobility, Education, Functional Activity Irene, Functional Strength, Gait, Safety, Therapeutic Exercise, Transfers Treatment Duration: Nov 19, 2017 Frequency: 11 times per week Estimated Hrs Per Day: .25 hour per day (15-30') Patient and/or Family Agrees t: Yes Time/GCodes Time In: 840 Time Out: 903 Total Billed Treatment Time: 23 Total Billed Treatment 1 visit EX 15 min GT 8 min LETA MCGARRY PT Nov 13, 2017 09:11
[2017-11-13] MEDS ORDERED: PATIENT MAY USE OWN MEDS, ALL MC SCH (10:30)
[2017-11-13 12:00] VITALS: BP 130/79
--- NOTE | 2017-11-13 13:32 | Physical Therapy Daily Note ---
PT Daily Note-Current Subjective Patient is very agreeable to participate with PT. Pain Numeric Pain Scale: 8 Location: Right Location Body Site: Knee Pain Description: Acute Mental Status Patient Orientation: Normal For Age Attachments: IV Transfers Functional [place] Measure 0=Not Assessed/NA 4=Minimal Assistance 1=Total Assistance 5=Supervision or Setup 2=Maximal Assistance 6=Modified [place] 3=Moderate Assistance 7=Complete IndependenceIRFPAI Quality Coding Scale 6 Independent with activity with or without an assistive device 5 Patient requires set up or clean up by helper. Patient completes activity by themselves 4 Supervision or touching assist (CGA). [place] provide cues , steadying assist 3 The helper provides less than half the effort to complete the activity 2 The helper provides more than half the effort to complete the activity 1 Dependent. The helper does all the effort to complete an activity 7 Patient refused to complete or attempt activity 9 The patient did not perform the activity before the current illness or injury 88 Not attempted due to Medical conditions or safety concerns Transfers (B, C, W/C) (FIM): 6 Scootin Rollin Supine to/from Sit: 6 Sit to/from Stand: 6 Weight Bearing Right Lower Extremity: Right Weight Bearing/Tolerated Left Lower Extremity: Left Full Weight Bearing Gait Training Gait (FIM): 6 Distance (FIM): 3=150 ft Distance: 350' Gait Level of Assist: 6 Gait Assistive Device: FWW reciprocal pattern, antalgic Exercises Supine Ex: Ankle pumps, Quad Set, Heel Slides, Straight leg raise Supine Reps: 15 Seated Therapy Exercises: Long arc quads Seated Reps: 15 Assessment Current Status: Excellent Progress Patient is improving with treatment plan. Patient is highly motivated with progress. PT Short Term Goals Short Term Goals Time Frame: Nov 19, 2017 Transfers (B,C,W/C) (FIM): 5 Gait (FIM): 2 Gait Distance Comment: 50' Gait Level of Assist: 4 Gait Assistive Device: FWW PT Plan Treatment/Plan Treatment Plan: Continue Plan of Care Treatment Plan: Bed Mobility, Education, Functional Activity Irene, Functional Strength, Gait, Safety, Therapeutic Exercise, Transfers Treatment Duration: Nov 19, 2017 Frequency: 11 times per week Estimated Hrs Per Day: .25 hour per day (15-30') Patient and/or Family Agrees t: Yes Time/GCodes Time In: 1300 Time Out: 1323 Total Billed Treatment Time: 23 Total Billed Treatment 1 visit EX 15 min GT 8 min LETA MCGARRY PT Nov 13, 2017 13:32
--- NOTE | 2017-11-13 14:32 | Anesthesia-General Post-Op ---
General Patient Condition Mental Status/LOC: Same as Preop Cardiovascular: Satisfactory Nausea/Vomiting: Absent Respiratory: Satisfactory Pain: Controlled Complications: Absent Post Op Complications Complications None Follow Up Care/Instructions Patient Instructions None needed. Anesthesia/Patient Condition Patient Condition Patient is doing well, no complaints, stable vital signs, no apparent adverse anesthesia problems. No complications reported per nursing. AMANUEL LLANOS CRNA Nov 13, 2017 14:32
--- NOTE | 2017-11-13 14:45 | Occupational Therapy Eval ---
OT Evaluation-General/PLF Medical Diagnosis Admission Date Nov 12, 2017 at 06:00 Medical Diagnosis: right TKA Onset Date: Nov 12, 2017 Therapy Diagnosis Therapy Diagnosis: Decreased ADL skills Height/Weight Height (Feet): 4 Height (Inches): 11.00 Weight (Pounds): 177 Weight (Ounces): 11.2 Precautions Precautions/Isolations: Fall Prevention, Standard Precautions Safety Interventions: Bed Exit Alarm Weight Bear Status Weight Bearing Restriction: Weight Bearing/Tolerated Referral Physician: Sp Mcghee Referral Reason: Activity Tolerance, Self Care, Evaluation/Treatment, Strengthening/ROM Medical History Additional Medical History Appendectomy, Current History Pt. had elective knee surgery Reviewed History: Yes Social History Home: Single Level Current Living Status: Spouse Entry Into Home: Stairs Without Railing Steps Into Home: 2 ADL-Prior Level of Function ADL PLOF Comments Pt. was independent with daily tasks. Pt. works at job in [employer]. DME/Equipment: Bath Chair, Shower DME/Equipment Comments Pt. has a walker Occupation: Pt. states that her job requires her to sit and to stand. Drive Self: Yes OT Current Status Subjective Pt. reports 9/10 pain in right knee. Nursing aware. Appearance Pt. getting back to bed after going to bathroom with assist of nurse aide. Declines shower but agrees to work with OT. Mental Status/Objective Patient Orientation: Person, Place, Time, Situation Current Upper Extremity ROM WFL Upper Extremity Strength WFL ADL-Treatment Functional [place] Measure 0=Not Assessed/NA 4=Minimal Assistance 1=Total Assistance 5=Supervision or Setup 2=Maximal Assistance 6=Modified [place] 3=Moderate Assistance 7=Complete IndependenceIRFPAI Quality Coding Scale 6 Independent with activity with or without an assistive device 5 Patient requires set up or clean up by helper. Patient completes activity by themselves 4 Supervision or touching assist (CGA). [place] provide cues , steadying assist 3 The helper provides less than half the effort to complete the activity 2 The helper provides more than half the effort to complete the activity 1 Dependent. The helper does all the effort to complete an activity 7 Patient refused to complete or attempt activity 9 The patient did not perform the activity before the current illness or injury 88 Not attempted due to Medical conditions or safety concerns Lower Body Dressing (FIM): 2 (Pt. is unable to reach her right foot due to pain and swelling.) Transfers (B, C, W/C) (FIM): 5 (SBA to stand and to get legs into bed.) Other Treatments Pt. declines showering at this time, and is unable to doff/don socks. OT brings in AE and educates pt. on equipment. Pt. has just got food and is back in bed. Equipment left in room for pt. to practice as needed. Will attempt to practice this with her tomorrow. Pt. is also educated about toileting after BM , and toilet tongs if she should need them. Education OT Patient Education: Correct positioning, Modified ADL techniques, Progress toward Goal/Update tx plan, Purpose of tx/functional activities, Reviewed precautions, Rehab process, Transfer techniques, Use of adapted equipment Teaching Recipient: Patient Teaching Methods: Demonstration, Discussion Response to Teaching: Verbalize Understanding, Return Demonstration OT Short Term Goals Short Term Goals Transfers (B,C,W/C) (FIM): 5 1=Demonstrate adherence to instructed precautions during ADL tasks. 2=Patient will verbalize/demonstrate understanding of assistive devices/ modifications for ADL. 3=Patient will improve strength/tolerance for activity to enable patient to perform ADL's. OT Senior Care Goals Tooler Goals Time Frame: Nov 15, 2017 Eating (FIM): 7 Grooming(FIM): 6 Bathing(FIM): 6 Upper Body Dressing(FIM): 6 Lower Body Dressing(FIM): 6 Toileting(FIM): 6 Transfers (B,C,W/C) (FIM): 6 Toilet/Commode Transfer(FIM): 6 Shower Transfer(FIM): 5 Additional Goals: 1-Demonstrate ADL Tasks, 2-Verbalize Understanding, 3- ImproveStrength/Irene 1=Demonstrate adherence to instructed precautions during ADL tasks. 2=Patient will verbalize/demonstrate understanding of assistive devices/ modifications for ADL. 3=Patient will improve strength/tolerance for activity to enable patient to perform ADL's. OT Education/Plan Problem List/Assessment Assessment: Impaired I ADL's, Impaired Self-Care Skills Discharge Recommendations Plan/Recommendations: Continue POC Therapy D/C Recommendations: Home w/ Family Support Equpiment Recommendations-D/C: Hip Kit Treatment Plan/Plan of Care Treatment,Training & Education: Yes Patient would benefit from OT for education, treatment and training to promote independence in ADL's, mobility, safety and/or upper extremity function for ADL' s. Plan of Care: ADL Retraining Treatment Duration: Nov 15, 2017 Frequency: 3 times per week Estimated Hrs Per Day: .5 hour per day Agreement: Yes Rehab Potential: Good Time/GCodes Start Time: 11:35 Stop Time: 11:50 Total Time Billed (hr/min): 15 Billed Treatment Time 1, SUSAN LUCAS OT Nov 13, 2017 14:45
[2017-11-13 16:00] VITALS: BP 120/78
[2017-11-13 19:00] VITALS: BP 129/75
[2017-11-13] MEDS: morphine PCA 30 MG/30 ML VIAL IV PRN (19:37)
[2017-11-13] MEDS ORDERED: NAPROXEN 250 MG (NAPROSYN) TABLET PO SCH (21:00)
[2017-11-14] VITALS: BP 112/62
[2017-11-14] MEDS: oxyCODONE/APAP 5/325MG (PERCOCET 5) TABLET PO PRN ×6 (01:54→20:20)
[2017-11-14] MEDS: NS IV 1000 ML 1,000 ML IV SCH (01:57)
[2017-11-14 04:00] VITALS: BP 123/83
[2017-11-14] MEDS: PANTOPRAZOLE 20 MG TABLET (PROTONIX) PO SCH (06:04)
[2017-11-14] MEDS: MULTIVIT W/MINERALS TAB (THERAGRAN M) PO SCH (06:04)
[2017-11-14 06:52] LABS: HEMOGLOBIN 10.8 G/DL (11.5-16.0)
--- NOTE | 2017-11-14 06:58 | Progress Note-Standard ---
Standard Progress Note Progress Notes/Assess & Plan Date Seen by Provider: Nov 14, 2017 Time Seen by Provider: 06:56 Progress/Assessment & Plan post op check No complaints denies paresthesias Radiographs--HW well positioned without fxs RLE--2 plus DP pulse with brisk cap refill. Intact DF and PF of toes and ankle sensation intact throughout s/p RTKA mobilize as able Final Diagnosis No complaints Vital Signs Date Time Temp Pulse Resp B/P (MAP) Pulse Ox O2 Delivery O2 Flow Rate FiO2 11/14/17 06:00 14 11/14/17 04:00 97.5 101 14 123/83 (96) 96 Room Air 11/14/17 00:00 98.0 110 12 112/62 (79) 99 Room Air 11/13/17 19:00 99.3 109 16 129/75 (93) 96 Room Air 11/13/17 18:20 16 11/13/17 16:00 98.5 96 17 120/78 (92) 97 Room Air 11/13/17 12:00 97.9 99 20 130/79 (96) 97 Room Air 11/13/17 08:00 98.6 85 20 176/91 (119) 98 Room Air I & O 11/14/17 07:00 Intake Total 3234 ml Output Total 3150 ml Balance 84 ml Laboratory Tests Test 11/14/17 06:07 Range/Units RLE--incision clean and dry. No calf tenderness. flexion to 90 s/p RTKA PT/OT likely DC tomorrow MARS ENGLE MD Nov 14, 2017 06:58
[2017-11-14] MEDS ORDERED: morphine INJ 4 MG/ML 1 ML (VIAL/SYRINGE) IVP PRN (07:00)
[2017-11-14 08:00] VITALS: BP 140/81
[2017-11-14] MEDS: ASPIRIN E.C. 81 MG (ECOTRIN) TAB PO SCH (08:54)
[2017-11-14] MEDS: SENNA W/DOCUSATE (SENOKOT S) TABLET PO SCH ×2 (08:54→20:20)
[2017-11-14] MEDS: ENOXAPARIN 30 MG/0.3 ML (LOVENOX) SYR SC SCH ×2 (08:54→20:21)
[2017-11-14] MEDS: NAPROXEN SOD 220 MG PO SCH ×2 (08:55→20:20)
[2017-11-14] MEDS: OMEGA 3 (FISH OIL) 1000 MG CAP PO SCH (08:55)
--- NOTE | 2017-11-14 09:26 | Physical Therapy Daily Note ---
PT Daily Note-Current Subjective Patient is very agreeable to participate with PT. Pain Numeric Pain Scale: 3 Location: Right Location Body Site: Knee Pain Description: Ache, Acute Mental Status Patient Orientation: Normal For Age Transfers Functional [place] Measure 0=Not Assessed/NA 4=Minimal Assistance 1=Total Assistance 5=Supervision or Setup 2=Maximal Assistance 6=Modified [place] 3=Moderate Assistance 7=Complete IndependenceIRFPAI Quality Coding Scale 6 Independent with activity with or without an assistive device 5 Patient requires set up or clean up by helper. Patient completes activity by themselves 4 Supervision or touching assist (CGA). [place] provide cues , steadying assist 3 The helper provides less than half the effort to complete the activity 2 The helper provides more than half the effort to complete the activity 1 Dependent. The helper does all the effort to complete an activity 7 Patient refused to complete or attempt activity 9 The patient did not perform the activity before the current illness or injury 88 Not attempted due to Medical conditions or safety concerns Transfers (B, C, W/C) (FIM): 6 Scootin Sit to/from Stand: 6 Weight Bearing Right Lower Extremity: Right Weight Bearing/Tolerated Left Lower Extremity: Left Full Weight Bearing Gait Training Gait (FIM): 6 Distance (FIM): 3=150 ft Distance: 400' Gait Level of Assist: 6 Gait Assistive Device: FWW safe and functional Stair Training Stair Training: Handrails/: 2 handrails Stairs (FIM): 5 #of Steps: 4 Stairs: Pattern: Step to Level of Assist: 5 Exercises Seated Therapy Exercises: Ankle pumps, Long arc quads Assessment Current Status: Excellent Progress Patient progressing with treatment plan. Will dismiss to home tomorrow. PT Short Term Goals Short Term Goals Time Frame: Nov 19, 2017 Transfers (B,C,W/C) (FIM): 5 Gait (FIM): 2 Gait Distance Comment: 50' Gait Level of Assist: 4 Gait Assistive Device: FWW PT Plan Treatment/Plan Treatment Plan: Continue Plan of Care Treatment Plan: Bed Mobility, Education, Functional Activity Irene, Functional Strength, Gait, Safety, Therapeutic Exercise, Transfers Treatment Duration: Nov 19, 2017 Frequency: 11 times per week Estimated Hrs Per Day: .25 hour per day (15-30') Patient and/or Family Agrees t: Yes Safety Risks/Education Patient Education: Steps Teaching Recipient: Patient Teaching Methods: Demonstration Response to Teaching: Return Demonstration Time/GCodes Time In: 836 Time Out: 851 Total Billed Treatment Time: 15 Total Billed Treatment 1 visit FA 15 min LETA MCGARRY PT Nov 14, 2017 09:26
--- NOTE | 2017-11-14 13:09 | Occupational Ther Daily Note ---
OT Current Status-Daily Note Subjective Pt alert, sitting in room chair. Pt agreed to therapy. No c/o pain at this time. Pt's family in room and brought lunch. Mental Status/Objective Patient Orientation: Person, Place, Time, Situation Functional [place] Measure 0=Not Assessed/NA 4=Minimal Assistance 1=Total Assistance 5=Supervision or Setup 2=Maximal Assistance 6=Modified [place] 3=Moderate Assistance 7=Complete [place] Other Treatment Discussed with pt about different AE for bathroom and dressing. Pt's family stated that they will have a tub seat for pt's walk-in shower. Pt stated she is able to don socks though has difficulty with donning/doffing compression stockings. Pt then completed 4 UE exercises using medium resistance theraband, 3 sets 10 reps each. No difficulty, left theraband in room. After therapy, pt sitting in chair with family present. All needs met in room. Education OT Patient Education: Modified ADL techniques, Use of adapted equipment Teaching Recipient: Patient, Family Teaching Methods: Discussion Response to Teaching: Verbalize Understanding OT Short Term Goals Short Term Goals Transfers (B,C,W/C) (FIM): 5 1=Demonstrate adherence to instructed precautions during ADL tasks. 2=Patient will verbalize/demonstrate understanding of assistive devices/ modifications for ADL. 3=Patient will improve strength/tolerance for activity to enable patient to perform ADL's. OT Manufacturing Laborer Goals Manufacturing Laborer Goals Time Frame: Nov 15, 2017 Eating (FIM): 7 Grooming(FIM): 6 Bathing(FIM): 6 Upper Body Dressing(FIM): 6 Lower Body Dressing(FIM): 6 Toileting(FIM): 6 Transfers (B,C,W/C) (FIM): 6 Toilet/Commode Transfer(FIM): 6 Shower Transfer(FIM): 5 Additional Goals: 1-Demonstrate ADL Tasks, 2-Verbalize Understanding, 3- ImproveStrength/Irene 1=Demonstrate adherence to instructed precautions during ADL tasks. 2=Patient will verbalize/demonstrate understanding of assistive devices/ modifications for ADL. 3=Patient will improve strength/tolerance for activity to enable patient to perform ADL's. OT Education/Plan Discharge Recommendations Plan/Recommendations: Continue POC Treatment Plan/Plan of Care Patient would benefit from OT for education, treatment and training to promote independence in ADL's, mobility, safety and/or upper extremity function for ADL' s. Plan of Care: ADL Retraining Treatment Duration: Nov 15, 2017 Frequency: 3 times per week Estimated Hrs Per Day: .5 hour per day Agreement: Yes Rehab Potential: Good Time/GCodes Start Time: 12:50 Stop Time: 13:05 Total Time Billed (hr/min): 15 Billed Treatment Time 1 visit-FA 1 (15 min) CJ PEREZ Nov 14, 2017 13:09
--- NOTE | 2017-11-14 14:05 | Physical Therapy Daily Note ---
PT Daily Note-Current Subjective Patient is progressing with treatment plan and is compliant with exercise and ambulation. Pain Numeric Pain Scale: 5-Moderate Pain Location: Right Location Body Site: Knee Pain Description: Acute Mental Status Patient Orientation: Normal For Age Transfers Functional [place] Measure 0=Not Assessed/NA 4=Minimal Assistance 1=Total Assistance 5=Supervision or Setup 2=Maximal Assistance 6=Modified [place] 3=Moderate Assistance 7=Complete IndependenceIRFPAI Quality Coding Scale 6 Independent with activity with or without an assistive device 5 Patient requires set up or clean up by helper. Patient completes activity by themselves 4 Supervision or touching assist (CGA). [place] provide cues , steadying assist 3 The helper provides less than half the effort to complete the activity 2 The helper provides more than half the effort to complete the activity 1 Dependent. The helper does all the effort to complete an activity 7 Patient refused to complete or attempt activity 9 The patient did not perform the activity before the current illness or injury 88 Not attempted due to Medical conditions or safety concerns Transfers (B, C, W/C) (FIM): 6 Scootin Rollin Supine to/from Sit: 6 Sit to/from Stand: 6 Weight Bearing Right Lower Extremity: Right Weight Bearing/Tolerated Left Lower Extremity: Left Full Weight Bearing Gait Training Gait (FIM): 6 Distance (FIM): 3=150 ft Distance: 400' Gait Level of Assist: 6 Gait Assistive Device: FWW reciprocal pattern Exercises Supine Ex: Ankle pumps, Quad Set, Heel Slides, Straight leg raise Supine Reps: 15 Seated Therapy Exercises: Long arc quads Seated Reps: 15 Treatments CPM 0-[address] upon completion of treatment. Assessment Current Status: Excellent Progress Patient progressing with treatment plan. PT Short Term Goals Short Term Goals Time Frame: Nov 19, 2017 Transfers (B,C,W/C) (FIM): 5 Gait (FIM): 2 Gait Distance Comment: 50' Gait Level of Assist: 4 Gait Assistive Device: FWW PT Plan Treatment/Plan Treatment Plan: Continue Plan of Care Treatment Plan: Bed Mobility, Education, Functional Activity Irene, Functional Strength, Gait, Safety, Therapeutic Exercise, Transfers Treatment Duration: Nov 19, 2017 Frequency: 11 times per week Estimated Hrs Per Day: .25 hour per day (15-30') Patient and/or Family Agrees t: Yes Time/GCodes Time In: 1325 Time Out: 1340 Total Billed Treatment Time: 15 Total Billed Treatment 1 visit FA 15 min LETA MCGARRY PT Nov 14, 2017 14:04
[2017-11-14 15:40] VITALS: BP 144/85
[2017-11-14 19:15] VITALS: BP 152/87
[2017-11-14] MEDS ORDERED: ENALAPRIL MALEATE 20 MG PO SCH (21:00)
[2017-11-15] VITALS: BP 117/59
[2017-11-15] MEDS: MULTIVIT W/MINERALS TAB (THERAGRAN M) PO SCH (06:12)
[2017-11-15] MEDS: oxyCODONE/APAP 5/325MG (PERCOCET 5) TABLET PO PRN (06:12)
[2017-11-15] MEDS: PANTOPRAZOLE 20 MG TABLET (PROTONIX) PO SCH (06:12)
[2017-11-15] MEDS: NAPROXEN SOD 220 MG PO SCH (06:14)
[2017-11-15 06:26] LABS: HEMOGLOBIN 10.2 G/DL (11.5-16.0)
[2017-11-15 08:00] VITALS: BP 117/59
[2017-11-15] MEDS: OMEGA 3 (FISH OIL) 1000 MG CAP PO SCH (08:12)
[2017-11-15] MEDS: ENOXAPARIN 30 MG/0.3 ML (LOVENOX) SYR SC SCH (08:12)
[2017-11-15] MEDS: ASPIRIN E.C. 81 MG (ECOTRIN) TAB PO SCH (08:12)
[2017-11-15] MEDS: SENNA W/DOCUSATE (SENOKOT S) TABLET PO SCH (08:12)
--- NOTE | 2017-11-15 08:12 | Physical Therapy Daily Note ---
PT Daily Note-Current Subjective Agreeable. Ready to go home! Pain Numeric Pain Scale: 0-No Pain Location: No Pain Reported Mental Status Patient Orientation: Person, Place, Time, Situation Transfers Functional [place] Measure 0=Not Assessed/NA 4=Minimal Assistance 1=Total Assistance 5=Supervision or Setup 2=Maximal Assistance 6=Modified [place] 3=Moderate Assistance 7=Complete IndependenceIRFPAI Quality Coding Scale 6 Independent with activity with or without an assistive device 5 Patient requires set up or clean up by helper. Patient completes activity by themselves 4 Supervision or touching assist (CGA). [place] provide cues , steadying assist 3 The helper provides less than half the effort to complete the activity 2 The helper provides more than half the effort to complete the activity 1 Dependent. The helper does all the effort to complete an activity 7 Patient refused to complete or attempt activity 9 The patient did not perform the activity before the current illness or injury 88 Not attempted due to Medical conditions or safety concerns Transfers (B, C, W/C) (FIM): 6 Weight Bearing Right Lower Extremity: Right Weight Bearing/Tolerated Left Lower Extremity: Left Full Weight Bearing Gait Training Gait (FIM): 6 Gait Assistive Device: FWW Indep with gait; leg length discrepancy noted with right LE being longer. Step through gait. Exercises Supine Ex: Ankle pumps, Quad Set, Heel Slides, Short Arc Quads, Straight leg raise Supine Reps: 12 Seated Therapy Exercises: Ankle pumps, Long arc quads Seated Reps: 12 Assessment Current Status: Excellent Progress Meeting goals. Mod indep with all mobility. Able to complete HEP without problems. Good quad control. PT Short Term Goals Short Term Goals Time Frame: Nov 19, 2017 Transfers (B,C,W/C) (FIM): 5 Gait (FIM): 2 Gait Distance Comment: 50' Gait Level of Assist: 4 Gait Assistive Device: FWW PT Plan Treatment/Plan Treatment Plan: Discontinue PT, goals met Treatment Plan: Bed Mobility, Education, Functional Activity Irene, Functional Strength, Gait, Safety, Therapeutic Exercise, Transfers Treatment Duration: Nov 19, 2017 Frequency: 11 times per week Estimated Hrs Per Day: .25 hour per day (15-30') Patient and/or Family Agrees t: Yes Safety Risks/Education Patient Education: Gait Training Teaching Recipient: Patient Teaching Methods: Demonstration Response to Teaching: Return Demonstration Discharge Recommendations Therapy D/C Recommendations: Physical Therapy Home Care Time/GCodes Time In: 740 Time Out: 810 Total Billed Treatment Time: 30 Total Billed Treatment visit eX 15 GT 15 CJ LAUREANO PT Nov 15, 2017 08:12
--- NOTE | 2017-11-15 09:28 | Progress Note-Standard ---
Standard Progress Note Progress Notes/Assess & Plan Date Seen by Provider: Nov 15, 2017 Time Seen by Provider: 09:27 Progress/Assessment & Plan post op check No complaints denies paresthesias Radiographs--HW well positioned without fxs RLE--2 plus DP pulse with brisk cap refill. Intact DF and PF of toes and ankle sensation intact throughout s/p RTKA mobilize as able Final Diagnosis No complaints Vital Signs Date Time Temp Pulse Resp B/P (MAP) Pulse Ox O2 Delivery O2 Flow Rate FiO2 11/15/17 08:00 97.6 125 20 117/59 (78) 97 Room Air 11/15/17 00:00 98.4 117 18 117/59 (78) 95 Room Air 11/14/17 19:15 99.8 110 18 152/87 (108) 99 Room Air 11/14/17 15:40 99.4 102 18 144/85 (104) 100 Room Air I & O 11/15/17 07:00 Intake Total 3130 ml Output Total 2600 ml Balance 530 ml Laboratory Tests Test 11/15/17 05:32 Range/Units Hemoglobin 10.2 L 11.5-16.0 G/DL Hematocrit 28 L 35-52 % RLE--SLR indep. No calf tenderness. Neg Salas's. incision clean and dry. flexion to 90. Patella tracks well s/p RTKA doing well DC home MARS ENGLE MD Nov 15, 2017 09:28
[2017-11-15 10:35] VITALS: BP 117/59
--- NOTE | 2017-11-15 22:52 | DISCHARGE SUMMARY ---
DATE OF SERVICE: DIAGNOSES: 1. Right knee primary osteoarthritis. 2. History of migraines. PROCEDURES: Right total knee arthroplasty. SUMMARY: The patient is a 47-year-old female, who underwent a right total knee arthroplasty the day of admission. Postoperatively, she did very well. At the time of discharge, her wound was clean and dry. She had no calf tenderness, negative Homans' signs. She had attained independent status with physical therapy. She can perform a straight leg raise and had active flexion to 90 degrees. She is tolerating her diet well and tolerating pain well with oral pain medication. CONDITION ON DISCHARGE: Good. DISCHARGE DIET: Regular. FOLLOWUP: Within 3 weeks from physical therapy has been arranged. ACTIVITIES: Weightbearing as tolerated with walker. DISCHARGE MEDICATIONS: Are home medications, Percocet and aspirin. Job ID: [id number] DocumentID: [id number] Dictated Date: 11/15/2017 09:30:26 Corset Maker Date: 11/15/2017 22:51:50 Dictated By: MARS ENGLE MD
== END 2017-11-15 10:15 | disposition home health service (06) | DRG 470 ==
LOC: SURGICAL 06:00 → SURG 06:40 → 4TH 10:20
PROVIDERS: ADMIT Orthopaedic Surgery; ATTEND Orthopaedic Surgery
PROC: 0SRC0J9 Replacement of Right Knee Joint with Synthetic Substitute, Cemented, Open Approach (ICD-10-PCS; principal; 2017-11-12 07:30)
DX: M17.11 Unilateral primary osteoarthritis, right knee (principal); I10 Essential (primary) hypertension; G43.909 Migraine, unspecified, not intractable, without status migrainosus; K21.9 Gastro-esophageal reflux disease without esophagitis
CPT/HCPCS: 36415; 73560; 84703; 85014; 85018; 94664

== ENCOUNTER 2017-12-19 15:49 | Outpatient (RCR) | payer BC ==
[~2017-12-19 15:49] MED LIST changes: +OXYC-197 PO
== END 2017-12-22 16:27 | disposition home or self-care (01) ==
PROVIDERS: ATTEND Orthopaedic Surgery
DX: Z47.1 Aftercare following joint replacement surgery (principal); Z96.651 Presence of right artificial knee joint

== ENCOUNTER 2018-04-14 09:16 | Outpatient (RCR) | payer BC ==
[2018-02-17 08:42] LABS: BASOPHILS # (AUTO) 0.1 10^3/uL (0.0-0.1); BASOPHILS % (AUTO) 1 % (0-10); EOSINOPHILS # (AUTO) 1.2 10^3/uL (0.0-0.3); EOSINOPHILS % (AUTO) 13 % (0-10); HEMATOCRIT 40 % (35-52); HEMOGLOBIN 13.5 G/DL (11.5-16.0); LYMPHOCYTES # (AUTO) 4.5 X 10^3 (1.0-4.0); LYMPHOCYTES % (AUTO) 49 % (12-44); MEAN CORPUSCULAR HEMOGLOBIN 28 PG (25-34); MEAN CORPUSCULAR HGB CONC 34 G/DL (32-36); MEAN CORPUSCULAR VOLUME 83 FL (80-99); MEAN PLATELET VOLUME 10.7 FL (7.4-10.4); MONOCYTES # (AUTO) 0.5 X 10^3 (0.0-1.0); MONOCYTES % (AUTO) 5 % (0-12); NEUTROPHILS % (AUTO) 32 % (42-75); PLATELET COUNT 441 10^3/uL (130-400); RED BLOOD COUNT 4.81 10^6/uL (4.35-5.85); RED CELL DISTRIBUTION WIDTH 13.1 % (10.0-14.5); WHITE BLOOD COUNT 9.2 10^3/uL (4.3-11.0)
[2018-02-17 08:58] LABS: ALANINE AMINOTRANSFERASE 17 U/L (0-55); ALBUMIN 4.1 GM/DL (3.2-4.5); ALKALINE PHOSPHATASE 99 U/L (40-136); BILIRUBIN,TOTAL 0.2 MG/DL (0.1-1.0); BUN/CREATININE RATIO 16; CALCIUM 9.7 MG/DL (8.5-10.1); CARBON DIOXIDE 27 MMOL/L (21-32); CHLORIDE 105 MMOL/L (98-107); GFR ESTIMATED > 60; GLUCOSE 114 MG/DL (70-105); POTASSIUM 4.6 MMOL/L (3.6-5.0); SODIUM 139 MMOL/L (135-145); TOTAL PROTEIN 7.4 GM/DL (6.4-8.2)
[2018-03-17 08:56] LABS: BASOPHILS # (AUTO) 0.1 10^3/uL (0.0-0.1); BASOPHILS % (AUTO) 1 % (0-10); EOSINOPHILS # (AUTO) 0.5 10^3/uL (0.0-0.3); EOSINOPHILS % (AUTO) 6 % (0-10); HEMATOCRIT 38 % (35-52); HEMOGLOBIN 12.7 G/DL (11.5-16.0); LYMPHOCYTES # (AUTO) 3.7 X 10^3 (1.0-4.0); LYMPHOCYTES % (AUTO) 51 % (12-44); MEAN CORPUSCULAR HEMOGLOBIN 28 PG (25-34); MEAN CORPUSCULAR HGB CONC 34 G/DL (32-36); MEAN CORPUSCULAR VOLUME 83 FL (80-99); MEAN PLATELET VOLUME 10.4 FL (7.4-10.4); MONOCYTES # (AUTO) 0.5 X 10^3 (0.0-1.0); MONOCYTES % (AUTO) 7 % (0-12); NEUTROPHILS # (AUTO) 2.6 X 10^3 (1.8-7.8); NEUTROPHILS % (AUTO) 35 % (42-75); PLATELET COUNT 387 10^3/uL (130-400); RED BLOOD COUNT 4.54 10^6/uL (4.35-5.85); RED CELL DISTRIBUTION WIDTH 13.2 % (10.0-14.5); WHITE BLOOD COUNT 7.4 10^3/uL (4.3-11.0)
[2018-03-17 09:18] LABS: ALANINE AMINOTRANSFERASE 15 U/L (0-55); ALBUMIN 3.9 GM/DL (3.2-4.5); ALKALINE PHOSPHATASE 91 U/L (40-136); BILIRUBIN,TOTAL 0.3 MG/DL (0.1-1.0); BUN/CREATININE RATIO 12; CALCIUM 9.3 MG/DL (8.5-10.1); CARBON DIOXIDE 29 MMOL/L (21-32); CHLORIDE 107 MMOL/L (98-107); CREATININE SERUM 0.73 MG/DL (0.60-1.30); GFR ESTIMATED > 60; GLUCOSE 117 MG/DL (70-105); POTASSIUM 4.4 MMOL/L (3.6-5.0); SODIUM 143 MMOL/L (135-145); TOTAL PROTEIN 6.8 GM/DL (6.4-8.2)
[2018-04-14 09:26] LABS: BASOPHILS % (AUTO) 1 % (0-10); EOSINOPHILS # (AUTO) 0.4 10^3/uL (0.0-0.3); EOSINOPHILS % (AUTO) 5 % (0-10); HEMATOCRIT 36 % (35-52); HEMOGLOBIN 12.2 G/DL (11.5-16.0); LYMPHOCYTES # (AUTO) 3.7 X 10^3 (1.0-4.0); LYMPHOCYTES % (AUTO) 44 % (12-44); MEAN CORPUSCULAR HEMOGLOBIN 28 PG (25-34); MEAN CORPUSCULAR HGB CONC 34 G/DL (32-36); MEAN CORPUSCULAR VOLUME 83 FL (80-99); MEAN PLATELET VOLUME 10.3 FL (7.4-10.4); MONOCYTES # (AUTO) 0.5 X 10^3 (0.0-1.0); MONOCYTES % (AUTO) 6 % (0-12); NEUTROPHILS # (AUTO) 3.8 X 10^3 (1.8-7.8); NEUTROPHILS % (AUTO) 45 % (42-75); PLATELET COUNT 401 10^3/uL (130-400); RED BLOOD COUNT 4.34 10^6/uL (4.35-5.85); RED CELL DISTRIBUTION WIDTH 13.2 % (10.0-14.5); WHITE BLOOD COUNT 8.4 10^3/uL (4.3-11.0)
[2018-04-14 09:55] LABS: ALANINE AMINOTRANSFERASE 14 U/L (0-55); ALBUMIN 3.8 GM/DL (3.2-4.5); ALKALINE PHOSPHATASE 98 U/L (40-136); BILIRUBIN,TOTAL 0.4 MG/DL (0.1-1.0); BUN/CREATININE RATIO 16; CALCIUM 9.4 MG/DL (8.5-10.1); CARBON DIOXIDE 21 MMOL/L (21-32); CHLORIDE 106 MMOL/L (98-107); CREATININE SERUM 0.67 MG/DL (0.60-1.30); GFR ESTIMATED > 60; GLUCOSE 126 MG/DL (70-105); POTASSIUM 3.9 MMOL/L (3.6-5.0); SODIUM 138 MMOL/L (135-145); TOTAL PROTEIN 7.1 GM/DL (6.4-8.2)
[2018-05-12] MEDS ORDERED: ASPI-586 PO (08:41)
[2018-05-20] MEDS ORDERED: OXYC-197 PO (07:25)
== END 2018-05-18 | disposition home or self-care (01) ==
LOC: ONC 09:16
PROVIDERS: ATTEND Internal Medicine Hematology & Oncology
DX: D12.1 Benign neoplasm of appendix (principal); I10 Essential (primary) hypertension; E78.5 Hyperlipidemia, unspecified; Z79.899 Other long term (current) drug therapy
CPT/HCPCS: 36415; 80053; 82378; 85025; 99213

== ENCOUNTER 2018-05-12 08:21 | Outpatient (CLI) | payer BC ==
[~2018-05-12] VITALS: Ht 149.9 cm; Wt 74.5 kg
[2018-05-12 08:35] VITALS: BP 117/87
[2018-05-12] MEDS ORDERED: ASPI-586 PO (08:41)
[2018-05-12 09:45] LABS: BASOPHILS # (AUTO) 0.1 10^3/uL (0.0-0.1); BASOPHILS % (AUTO) 1 % (0-10); BILIRUBIN,URINE NEGATIVE (NEGATIVE); CLARITY,URINE CLEAR; COLOR,URINE YELLOW; EOSINOPHILS # (AUTO) 2.2 10^3/uL (0.0-0.3); EOSINOPHILS % (AUTO) 26 % (0-10); GLUCOSE, URINE (UA) NEGATIVE (NEGATIVE); HEMATOCRIT 36 % (35-52); HEMOGLOBIN 12.1 G/DL (11.5-16.0); KETONES,URINE NEGATIVE (NEGATIVE); LEUKOCYTE ESTERASE ,URINE 2+ (NEGATIVE); LYMPHOCYTES # (AUTO) 3.5 X 10^3 (1.0-4.0); LYMPHOCYTES % (AUTO) 42 % (12-44); MEAN CORPUSCULAR HEMOGLOBIN 28 PG (25-34); MEAN CORPUSCULAR HGB CONC 33 G/DL (32-36); MEAN CORPUSCULAR VOLUME 83 FL (80-99); MONOCYTES # (AUTO) 0.5 X 10^3 (0.0-1.0); MONOCYTES % (AUTO) 6 % (0-12); NEUTROPHILS % (AUTO) 25 % (42-75); NITRITE,URINE NEGATIVE (NEGATIVE); PH,URINE 6 (5-9); PLATELET COUNT 365 10^3/uL (130-400); PROTEIN,URINE 1+ (NEGATIVE); RED BLOOD COUNT 4.36 10^6/uL (4.35-5.85); UROBILINOGEN,URINE NORMAL (NORMAL); WHITE BLOOD COUNT 8.3 10^3/uL (4.3-11.0)
[2018-05-12 09:57] LABS: PROTHROMBIN TIME PATIENT 12.7 SEC (12.2-14.7)
[2018-05-12 10:00] LABS: BACTERIA,URINE TRACE /HPF; RBC,URINE 0-2 /HPF
[2018-05-12 10:07] LABS: ALANINE AMINOTRANSFERASE 18 U/L (0-55); ALBUMIN 3.8 GM/DL (3.2-4.5); ALKALINE PHOSPHATASE 81 U/L (40-136); BILIRUBIN,TOTAL 0.2 MG/DL (0.1-1.0); BUN/CREATININE RATIO 14; CALCIUM 9.3 MG/DL (8.5-10.1); CARBON DIOXIDE 22 MMOL/L (21-32); CHLORIDE 108 MMOL/L (98-107); CREATININE SERUM 0.72 MG/DL (0.60-1.30); GFR ESTIMATED > 60; GLUCOSE 103 MG/DL (70-105); POTASSIUM 3.8 MMOL/L (3.6-5.0); SODIUM 140 MMOL/L (135-145); TOTAL PROTEIN 6.6 GM/DL (6.4-8.2)
[2018-05-12 10:13] LABS: BAND NEUTROPHILS 0 %; BASOPHILS % (MANUAL) 2 %; EOSINOPHILS % (MANUAL) 34 %; ERYTHROCYTE SEDIMENTATION RATE 16 MM/HR (0-20); LYMPHOCYTES % (MANUAL) 33 %; MONOCYTES % (MANUAL) 2 %; NEUTROPHILS % (MANUAL) 19 %; RBC MORPH NORMAL; REACTIVE LYMPHOCYTES 10 %
[2018-05-20] MEDS ORDERED: OXYC-197 PO (07:25)
== END 2018-05-12 15:00 | disposition home or self-care (01) ==
LOC: PREOP 08:21
PROVIDERS: ATTEND Orthopaedic Surgery
DX: Z01.812 Encounter for preprocedural laboratory examination (principal); M17.12 Unilateral primary osteoarthritis, left knee; Z11.2 Encounter for screening for other bacterial diseases; R53.83 Other fatigue; R82.99 Other abnormal findings in urine
CPT/HCPCS: 36415; 80053; 81000; 85007; 85027; 85610; 85652; 86850; 86900; 86901; 87081; 87088

== ENCOUNTER 2018-05-20 05:55 | Inpatient (IN) | payer BC ==
--- NOTE | 2018-05-05 17:47 | HISTORY AND PHYSICAL ---
DATE OF SERVICE: 05/20/2018 DATE OF ADMISSION: 05/20/2018. CHIEF COMPLAINT: Left total knee arthroplasty. SUMMARY: The patient is a 47-year-old female with longstanding left knee pain. This has been progressive in nature to the point where it is activity limiting. She has undergone treatment with injections with only temporary relief of symptoms. Radiographs reveal severe medial and patellofemoral arthrosis. Due to functional impairment and failure to improve with conservative measures, the patient has elected to proceed with surgical intervention. REVIEW OF SYSTEMS: No chest pain. No shortness of breath. No dysuria. PAST MEDICAL HISTORY: Migraines. PAST SURGICAL HISTORY: Appendectomy, and right total knee arthroplasty. FAMILY HISTORY: Cardiovascular disease, Alzheimer's disease and breast cancer. PRIMARY CARE PROVIDER: Dr. Diana. MEDICATIONS: 1. Enalapril. 2. Ocella. 3. Claritin-D. 4. Fluoxetine. 5. Zolpidem. 6. Aleve. ALLERGIES: SULFA. SOCIAL HISTORY: The patient drinks alcohol socially, but denies tobacco use. PHYSICAL EXAMINATION: GENERAL: The patient is well-developed, well-nourished, in no acute distress. HEENT: Normocephalic and atraumatic. Pupils are equal, round, reactive to light. Oropharynx is clear. NECK: Supple. No lymphadenopathy. LUNGS: Clear to auscultation bilaterally. HEART: Regular rate and rhythm. ABDOMEN: Soft, nontender, nondistended. EXTREMITIES EXAM: The left knee demonstrates slight effusion. She has a varus alignment with range of motion of 0/3/125 with no varus valgus laxity. Negative anterior and posterior drawer. No skin lesions are noted. She ambulates with an antalgic gait. IMPRESSION: Severe left knee primary osteoarthritis, unresponsive to conservative measures. PLAN: Left total knee arthroplasty. The risks, benefits, options, ramifications and recovery have been discussed at length with the patient. She understands and wishes to proceed. She will require regular inpatient admission due to comorbidities, pain management and physical therapy. Job ID: [id number] DocumentID: [id number] Dictated Date: 05/05/2018 17:26:19 Applied Psychology Professor Date: 05/05/2018 17:46:51 Dictated By: MARS ENGLE MD
[~2018-05-20] VITALS: Ht 149.9 cm; Wt 74.5 kg
[~2018-05-20 05:55] MED LIST changes: +ASPI-586 PO
--- OUTSIDE RECORDS SUMMARY | 2018-05-20 06:00 | XMS REPORT ---
Author Author WENCESLAO PRUITT Organization [facility] Address [address] [place] [address] Care Team Providers Care Tree Trimming Supervisor Name Role Phone EDMOND WENCESLAO Unavailable PROBLEMS Type Condition ICD9-CM Code [id number] Code Onset Dates Condition Status SNOMED Code Problem Need for prophylactic vaccination and inoculation, Influenza V04.81 Active 908093020 ALLERGIES No Information ENCOUNTERS Encounter Location Date Diagnosis [facility] [place] [id number], [place] [id number] Jul, Encounter for immunization Z23 [facility] [id number] [place] [phone] Aug, Encounter for immunization Z23 [facility] [id number] [place] [phone] Aug, [facility] [id number] [place] [phone] Aug, [facility] [id number], [place] [phone] Aug, [facility] [id number] [place] [phone] Aug, IMMUNIZATIONS Vaccine Route Administration Date Status FLUARIX QUAD (3 AND UP) 2017 IM Intramuscular Aug 08, 2017 Administered SOCIAL HISTORY Never Assessed REASON FOR VISIT Flu Vaccine-[facility] 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
--- OUTSIDE RECORDS SUMMARY | 2018-05-20 06:01 | XMS REPORT | Continuity of Care Document ---
Author Author [facility] Organization [facility] Address Unknown Phone Unavailable Allergies Active Description Code Type Severity Reaction Onset Reported/Identified Relationship to Patient Clinical Status Yes No Known Drug Allergies [id number] Drug Allergy Unknown N/A 03/26/2016 Yes Sulfa (Sulfonamide Antibiotics) [id number] Drug Allergy Mild ITCHING 2017 Yes fentanyl [id number] Drug Allergy Unknown NAUSEA AND VOMI 05/12/2018 Medications There is no data. Problems Date Dx Coded Attending Type Code Diagnosis Diagnosed By 10/09/1626 ONIEL GALVIN, MARS Contreras Ot Z47.1 AFTERCARE FOLLOWING JOINT REPLACEMENT OCHOA 10/09/1626 ONIEL GALVIN, MARS Contreras Ot Z96.651 PRESENCE OF RIGHT ARTIFICIAL KNEE JOINT 09/02/2012 JOHN FLORIAN SHALINI Phill V04.81 FLU DX (3 YRS AND ABOVE, IM) 09/23/2014 FIOR GALVIN, TAMI Curry Ot V76.12 [...] Ot D12.1 BENIGN NEOPLASM OF APPENDIX 03/19/2016 KATHY GALVIN, JOSE Ot E78.5 HYPERLIPIDEMIA, UNSPECIFIED 03/19/2016 JOSE CHAVEZ MD, Ot I10 ESSENTIAL (PRIMARY) HYPERTENSION 03/24/2016 JOSE CHAVEZ MD Ot D12.1 BENIGN NEOPLASM OF APPENDIX 03/24/2016 JOSE CHAVEZ MD, Ot E78.5 HYPERLIPIDEMIA, UNSPECIFIED 03/24/2016 JOSE CHAVEZ MD Ot I10 ESSENTIAL (PRIMARY) HYPERTENSION 03/25/2016 TAMI CHILDRESS MD, Ot V76.12 OTH SCREEN MAMMO-MALIGN NEOPLASM OF CARLOS ENRIQUE 03/25/2016 JOSE JOHNSON MD R Ot 789.00 ABDOMINAL PAIN, UNSPECIFIED SITE 03/25/2016 ELIZABETH GALVIN JOSE R Ot 789.59 OTHER ASCITES 03/25/2016 [...] OTH SCREENING FOR MALIGNAN 03/25/2016 JOSE CHAVEZ MD Ot D12.1 BENIGN NEOPLASM OF APPENDIX 03/25/2016 JOSE CHAVEZ MD, Ot E78.5 HYPERLIPIDEMIA, UNSPECIFIED 03/25/2016 JOSE CHAVEZ MD Ot I10 ESSENTIAL (PRIMARY) HYPERTENSION 03/25/2016 JOSE CHAVEZ MD Ot M25.561 PAIN IN RIGHT KNEE 03/25/2016 JOSE CHAVEZ MD, Ot M25.562 PAIN IN LEFT KNEE 03/25/2016 JOSE CHAVEZ MD, Ot D12.1 BENIGN NEOPLASM OF APPENDIX 03/25/2016 JOSE CHAVEZ MD, Ot E78.5 HYPERLIPIDEMIA, UNSPECIFIED 03/25/2016 JOSE CHAVEZ [...] K64.0 FIRST DEGREE HEMORRHOIDS 04/01/2016 NAPOLEON BARRAZA MD Ot Z12.11 ENCOUNTER FOR [...] Ot E78.5 HYPERLIPIDEMIA, UNSPECIFIED 08/22/2016 JOSE CHAVEZ MD, Ot I10 ESSENTIAL (PRIMARY) HYPERTENSION 08/22/2016 JOSE CHAVEZ MD Ot Z79.899 OTHER SECRETARY SPECIALIST (CURRENT) DRUG THERAPY 08/28/2016 TMAI CHILDRESS MD, Ot V76.12 OTH SCREEN MAMMO-MALIGN NEOPLASM OF CARLOS ENRIQUE 08/28/2016 JOSE JOHNSON MD R Ot 789.00 ABDOMINAL PAIN, UNSPECIFIED SITE 08/28/2016 ELIZABETH GALVIN JOSE R Ot 789.59 OTHER ASCITES 08/28/2016 [...] Ot E78.5 HYPERLIPIDEMIA, UNSPECIFIED 08/28/2016 JOSE CHAVEZ MD, Ot I10 ESSENTIAL (PRIMARY) HYPERTENSION 08/28/2016 JOSE [...] 08/28/2016 JOSE CHAVEZ MD Ot Z79.899 OTHER SENIOR LIVING (CURRENT) DRUG THERAPY 08/28/2016 TAMI CHILDRESS MD [...] 09/05/2016 JOSE CHAVEZ MD Ot Z79.899 OTHER SENIOR LIVING (CURRENT) DRUG THERAPY 10/07/2016 JOSE CHAVEZ MD Ot D12.1 BENIGN NEOPLASM OF APPENDIX 10/07/2016 JOSE CHAVEZ MD Ot E78.5 HYPERLIPIDEMIA, UNSPECIFIED 10/07/2016 JOSE CHAVEZ MD Ot I10 ESSENTIAL (PRIMARY) HYPERTENSION 10/07/2016 JOSE CHAVEZ MD Ot Z79.899 OTHER SENIOR LIVING (CURRENT) DRUG THERAPY 10/10/2016 Ot 789.59 OTHER ASCITES 08/20/2017 JOSE CHAVEZ MD Ot D12.1 BENIGN NEOPLASM OF APPENDIX 08/20/2017 JOSE CHAVEZ MD Ot E78.5 HYPERLIPIDEMIA, UNSPECIFIED 08/20/2017 JOSE CHAVEZ MD Ot I10 ESSENTIAL (PRIMARY) HYPERTENSION 08/20/2017 JOSE CHAVEZ MD, Ot Z79.899 OTHER SECRETARY SPECIALIST (CURRENT) DRUG THERAPY 09/04/2017 FIOR GALVIN, TAMI Curry Ot Z12.31 ENCNTR SCREEN MAMMOGRAM FOR MALIGNANT NE 10/01/2017 JOSE CHAVEZ MD Ot D12.1 BENIGN NEOPLASM OF APPENDIX 10/01/2017 JOSE CHAVEZ MD Ot E78.5 HYPERLIPIDEMIA, UNSPECIFIED 10/01/2017 JOSE CHAVEZ MD Ot I10 ESSENTIAL (PRIMARY) HYPERTENSION 10/01/2017 JOSE CHAVEZ MD, Ot Z79.899 OTHER SENIOR LIVING (CURRENT) DRUG THERAPY 11/05/2017 MARS ENGLE MD, Ot M17.11 UNILATERAL PRIMARY OSTEOARTHRITIS, RIGHT 11/05/2017 MARS ENGLE MD Ot R53.83 OTHER FATIGUE 11/05/2017 MARS ENGLE MD Ot Z01.810 ENCOUNTER FOR PREPROCEDURAL CARDIOVASCUL 11/05/2017 MARS ENGLE MD Ot Z01.811 ENCOUNTER FOR PREPROCEDURAL RESPIRATORY 11/05/2017 MARS ENGLE MD Ot Z01.812 ENCOUNTER FOR PREPROCEDURAL LABORATORY E 11/05/2017 MARS ENGLE MD Ot Z11.2 ENCOUNTER FOR SCREENING FOR OTHER BACTER 11/06/2017 MARS ENGLE MD, Ot M17.11 UNILATERAL PRIMARY OSTEOARTHRITIS, RIGHT 11/06/2017 MARS ENGLE MD Ot R53.83 OTHER FATIGUE 11/06/2017 MARS ENGLE MD Ot Z01.810 ENCOUNTER FOR PREPROCEDURAL CARDIOVASCUL 11/06/2017 MARS ENGLE MD Ot Z01.811 ENCOUNTER FOR PREPROCEDURAL RESPIRATORY 11/06/2017 MARS ENGLE MD Ot Z01.812 ENCOUNTER FOR PREPROCEDURAL LABORATORY E 11/06/2017 MARS ENGLE MD Ot Z11.2 ENCOUNTER FOR SCREENING FOR OTHER BACTER 11/13/2017 MARS ENGLE MD Ot M17.11 UNILATERAL PRIMARY OSTEOARTHRITIS, RIGHT 11/15/2017 MARS ENGLE MD Ot G43.909 MIGRAINE, UNSP, NOT INTRACTABLE, WITHOUT 11/15/2017 MARS ENGLE MD, Ot I10 ESSENTIAL (PRIMARY) HYPERTENSION 11/15/2017 MARS ENGLE MD, Ot K21.9 GASTRO-ESOPHAGEAL REFLUX DISEASE WITHOUT 11/15/2017 MARS ENGLE MD, Ot M17.11 UNILATERAL PRIMARY OSTEOARTHRITIS, RIGHT 11/17/2017 JOSE CHAVEZ MD, Ot D12.1 BENIGN NEOPLASM OF APPENDIX 11/17/2017 JOSE CHAVEZ MD, Ot E78.5 HYPERLIPIDEMIA, UNSPECIFIED 11/17/2017 JOSE CHAVEZ MD, Ot I10 ESSENTIAL (PRIMARY) HYPERTENSION 11/17/2017 JOSE CHAVEZ MD, Ot Z79.899 OTHER SENIOR LIVING (CURRENT) DRUG THERAPY 11/18/2017 JOSE CHAVEZ MD, Ot D12.1 BENIGN NEOPLASM OF APPENDIX 11/18/2017 JOSE CHAVEZ MD, Ot E78.5 HYPERLIPIDEMIA, UNSPECIFIED 11/18/2017 JOSE CHAVEZ MD, Ot I10 ESSENTIAL (PRIMARY) HYPERTENSION 11/18/2017 JOSE CHAVEZ MD, Ot Z79.899 OTHER SENIOR LIVING (CURRENT) DRUG THERAPY 12/04/2017 MARS ENGLE 719.7 DIFFICULTY IN WALKING 12/04/2017 MARS ENGLE 728.83 RUPTURE OF MUSCLE, NONTRAUMATIC 12/04/2017 MARS ENGLE M62.18 OTHER RUPTURE OF MUSCLE (NONTRAUMATIC), OTHER SITE 12/04/2017 MARS ENGLE R26.2 DIFFICULTY IN WALKING, NOT ELSEWHERE CLASSIFIED 12/04/2017 MARS ENGLE V43.65 KNEE JOINT REPLACED BY OTHER MEANS 12/04/2017 MARS ENGLE V54.81 AFTERCARE FOLLOWING JOINT REPLACEMENT 12/04/2017 MARS ENGLE Z47.1 AFTERCARE FOLLOWING JOINT REPLACEMENT SURGERY 12/04/2017 MARS ENGLE Z96.652 PRESENCE OF LEFT ARTIFICIAL KNEE JOINT 12/22/2017 MARS ENGLE MD, Ot Z47.1 AFTERCARE FOLLOWING JOINT REPLACEMENT OCHOA 12/22/2017 MARS ENGLE MD, Ot Z96.651 PRESENCE OF RIGHT ARTIFICIAL KNEE JOINT 02/18/2018 JOSE CHAVEZ MD, Ot D12.1 BENIGN NEOPLASM OF APPENDIX 02/18/2018 JOSE CHAVEZ MD, Ot E78.5 HYPERLIPIDEMIA, UNSPECIFIED 02/18/2018 JOSE CHAVEZ MD Ot I10 ESSENTIAL (PRIMARY) HYPERTENSION 02/18/2018 JOSE CHAVEZ MD Ot Z79.899 OTHER SENIOR LIVING (CURRENT) DRUG THERAPY 03/25/2018 JOSE CHAVEZ MD Ot D12.1 BENIGN NEOPLASM OF APPENDIX 03/25/2018 JOSE CHAVEZ MD Ot E78.5 HYPERLIPIDEMIA, UNSPECIFIED 03/25/2018 JOSE CHAVEZ MD, Ot I10 ESSENTIAL (PRIMARY) HYPERTENSION 03/25/2018 JOSE CHAVEZ MD, Ot Z79.899 OTHER SECRETARY SPECIALIST (CURRENT) DRUG THERAPY 05/14/2018 MARS ENGLE MD, Ot M17.12 UNILATERAL PRIMARY OSTEOARTHRITIS, LEFT 05/14/2018 MARS ENGLE MD Ot R53.83 OTHER FATIGUE 05/14/2018 MARS ENGLE MD Ot R82.99 OTHER ABNORMAL FINDINGS IN URINE 05/14/2018 MARS ENGLE MD Ot Z01.812 ENCOUNTER FOR PREPROCEDURAL LABORATORY E 05/14/2018 MARS ENGLE MD Ot Z11.2 ENCOUNTER FOR SCREENING FOR OTHER BACTER 05/18/2018 MARS ENGLE MD, Ot M17.12 UNILATERAL PRIMARY OSTEOARTHRITIS, LEFT 05/18/2018 MARS ENGLE MD Ot R53.83 OTHER FATIGUE 05/18/2018 MARS ENGLE MD Ot R82.99 OTHER ABNORMAL FINDINGS IN URINE 05/18/2018 MARS ENGLE MD Ot Z01.812 ENCOUNTER FOR PREPROCEDURAL LABORATORY E 05/18/2018 MARS ENGLE MD Ot Z11.2 ENCOUNTER FOR SCREENING FOR OTHER BACTER Procedures Code Description Performed By Performed On [id number] REPLACE OF R KNEE JT WITH SYNTH SUB, CARLYLE 11/12/2017 Results Test Result Range Complete blood count [...] urinalysis with reflex to culture NO NRG Urine beta human chorionic gonadotropin (hCG) measurement - 11/12/17 06:05 Urine beta human chorionic gonadotropin (hCG) measurement NEGATIVE NEGATIVE Blood type T Indirect antibody screen panel - 11/12/17 06:20 ABO+Rh group ON NRG Transfusion band number [id number] [facility] Blood group antibody screen NEGATIVE NRG Whole blood hemoglobin and hematocrit panel - 11/13/17 05:48 Venous blood hemoglobin measurement (mass/volume) 10.4 g/dL 11.5-16.0 Blood hematocrit (volume fraction) 32 % 35-52 Whole blood hemoglobin and hematocrit panel - 11/14/17 06:07 Venous blood hemoglobin measurement (mass/volume) 10.8 g/dL 11.5-16.0 Blood hematocrit (volume fraction) 29 % 35-52 Whole blood hemoglobin and hematocrit panel - 11/15/17 05:32 Venous blood hemoglobin measurement (mass/volume) 10.2 g/dL 11.5-16.0 Blood hematocrit (volume fraction) 28 % 35-52 Bacterial urine culture - 05/12/18 08:55 Bacterial urine culture SEE COMMEN NR COLONY COUNT . [facility] Complete blood count (CBC) with automated white blood cell (WBC) differential - 05/12/18 09:00 Blood leukocytes automated count (number/volume) 8.3 10*3/uL 4.3-11.0 Blood erythrocytes automated count (number/volume) 4.36 10*6/uL 4.35-5.85 Venous blood hemoglobin measurement (mass/volume) 12.1 g/dL 11.5-16.0 Blood hematocrit (volume fraction) 36 % 35-52 Automated erythrocyte mean corpuscular volume 83 [foz_us] 80-99 Automated erythrocyte mean corpuscular hemoglobin (mass per erythrocyte) 28 pg 25-34 Automated erythrocyte mean corpuscular hemoglobin concentration measurement ( mass/volume) 33 g/dL 32-36 Automated erythrocyte distribution width ratio 13.0 % 10.0-14.5 Automated blood platelet count (count/volume) 365 10*3/uL 130-400 Automated blood platelet mean volume measurement 11.0 [foz_us] 7.4-10.4 Automated blood neutrophils/100 leukocytes 25 % 42-75 Automated blood lymphocytes/100 leukocytes 42 % 12-44 Blood monocytes/100 leukocytes 6 % 0-12 Automated blood eosinophils/100 leukocytes 26 % 0-10 Automated blood basophils/100 leukocytes 1 % 0-10 Blood neutrophils automated count (number/volume) 2.0 10*3 1.8-7.8 Blood lymphocytes automated count (number/volume) 3.5 10*3 1.0-4.0 Blood monocytes automated count (number/volume) 0.5 10*3 0.0-1.0 Automated eosinophil count 2.2 10*3/uL 0.0-0.3 Automated blood basophil count (count/volume) 0.1 10*3/uL 0.0-0.1 PT panel in platelet poor plasma by coagulation assay - 05/12/18 09:00 Prothrombin time (PT) in platelet poor plasma by coagulation assay 12.7 s 12.2-14.7 INR in platelet poor plasma or blood by coagulation assay 1.0 0.8-1.4 Complete urinalysis with reflex to culture - 05/12/18 09:00 Urine color determination YELLOW NRG Urine clarity determination CLEAR NRG Urine pH measurement by test strip 6 5-9 Specific gravity of urine by test strip 1.020 1.016- 1.022 Urine protein assay by test strip, semi-quantitative 1+ NEGATIVE Urine glucose detection by automated test strip NEGATIVE NEGATIVE Erythrocytes detection in urine sediment by light microscopy 5+ NEGATIVE Urine ketones detection by automated test strip NEGATIVE NEGATIVE Urine nitrite detection by test strip NEGATIVE NEGATIVE Urine total bilirubin detection by test strip NEGATIVE NEGATIVE Urine urobilinogen measurement by automated test strip (mass/volume) NORMAL NORMAL Urine leukocyte esterase detection by dipstick 2+ NEGATIVE Automated urine sediment erythrocyte count by microscopy (number/high power field) [HPF] NRG Automated urine sediment leukocyte count by microscopy (number/high power field ) [HPF] NRG Bacteria detection in urine sediment by light microscopy TRACE NRG Squamous epithelial cells detection in urine sediment by light microscopy 2-5 NRG Crystals detection in urine sediment by light microscopy NONE NRG Casts detection in urine sediment by light microscopy NONE NRG Mucus detection in urine sediment by light microscopy SMALL NRG Complete urinalysis with reflex to culture YES NRG Comprehensive metabolic panel - 05/12/18 09:00 Serum or plasma sodium measurement (moles/volume) 140 mmol/L 135-145 Serum or plasma potassium measurement (moles/volume) 3.8 mmol/L 3.6-5.0 Serum or plasma chloride measurement (moles/volume) 108 mmol/L 98-107 Carbon dioxide 22 mmol/L 21-32 Serum or plasma anion gap determination (moles/volume) 10 mmol/L 5-14 Serum or plasma urea nitrogen measurement (mass/volume) 10 mg/dL 7-18 Serum or plasma creatinine measurement (mass/volume) 0.72 mg/dL 0.60-1.30 Serum or plasma urea nitrogen/creatinine mass ratio 14 NRG Serum or plasma creatinine measurement with calculation of estimated glomerular filtration rate > NRG Serum or plasma glucose measurement (mass/volume) 103 mg/dL 70-105 Serum or plasma calcium measurement (mass/volume) 9.3 mg/dL 8.5-10.1 Serum or plasma total bilirubin measurement (mass/volume) 0.2 mg/dL 0.1-1.0 Serum or plasma alkaline phosphatase measurement (enzymatic activity/volume) 81 U/L 40-136 Serum or plasma aspartate aminotransferase measurement (enzymatic activity/ volume) 19 U/L 5-34 Serum or plasma alanine aminotransferase measurement (enzymatic activity/volume ) 18 U/L 0-55 Serum or plasma protein measurement (mass/volume) 6.6 g/dL 6.4-8.2 Serum or plasma albumin measurement (mass/volume) 3.8 g/dL 3.2-4.5 Blood manual differential performed detection - 05/12/18 09:00 Blood monocytes/100 leukocytes 2 % NRG Manual blood segmented neutrophils/100 leukocytes 19 % NRG Blood band neutrophils/100 leukocytes 0 % NRG Manual blood lymphocytes/100 leukocytes 33 % NRG Manual eosinophils/100 leukocytes in nose 34 % NRG Manual blood basophils/100 leukocytes 2 % NRG Blood lymphocytes variant/100 leukocytes 10 % NRG Blood erythrocyte morphology finding identification NORMAL NRG Erythrocyte sedimentation rate by westergren method - 05/12/18 09:00 Erythrocyte sedimentation rate by westergren method 16 mm 0-20 Blood type T Indirect antibody screen panel - 05/12/18 09:00 ABO+Rh group ON NRG Blood group antibody screen NEGATIVE NRG Methicillin resistant Staphylococcus aureus (MRSA) screening culture - 09:00 Methicillin resistant Staphylococcus aureus (MRSA) screening culture NEG NRG Encounters ACCT No. Visit Date/Time Discharge Status Pt. Type Provider Facility Loc./Unit Complaint [id number] 05/12/2018 08:21:00 05/12/2018 15:00:00 DIS Outpatient ZAFUTA MD, MARS P [facility] PREOP LEFT KNEE OSTEOARTHRITIS [id number] 04/14/2018 09:16:00 04/14/2018 23:59:59 CLS Outpatient JOSE CHAVEZ MD [facility] ONC [id number] 12/19/2017 15:49:00 12/22/2017 16:27:00 DIS Outpatient MARS ENGLE MD [facility] REHAB OA RIGHT KNEE; S/P R TKR [id number] 08/19/2017 08:32:00 11/17/2017 00:01:00 DIS Outpatient JOSE CHAVEZ MD [facility] ONC [id number] 11/12/2017 06:00:00 11/15/2017 10:15:00 DIS Inpatient MARS ENGLE MD [facility] 4TH RIGHT KNEE OSTEOARTHRITIS [id number] 11/05/2017 11:04:00 11/05/2017 13:13:00 DIS Outpatient MARS ENGLE MD [facility] PREOP RIGHT KNEE OSTEOARTHRITIS [id number] 08/25/2017 07:11:00 08/25/2017 23:59:59 CLS Outpatient TAMI CHLIDRESS MD [facility] RAD ROUTINE [id number] 08/28/2016 06:55:00 08/28/2016 23:59:59 CLS Outpatient TAMI CHILDRESS MD [facility] RAD ROUTINE [id number] 08/20/2016 08:35:00 08/20/2016 23:59:59 CLS Outpatient JOSE CHAVEZ MD [facility] ONC [id number] 04/10/2016 14:32:00 04/10/2016 23:59:59 CLS Outpatient JOSE CHAVEZ MD [facility] ONC [id number] 03/29/2016 08:57:00 03/29/2016 13:10:00 DIS Outpatient NAPOLEON BARRAZA MD [facility] SDC SCREENING/REFLEX [id number] 03/26/2016 05:33:00 03/26/2016 15:41:00 DIS Outpatient NAPOLEON BARRAZA MD [facility] PREOP SCREENING,REFLEX [id number] 03/18/2016 14:12:00 03/18/2016 23:59:59 CLS Outpatient JOSE CHAVEZ MD [facility] ONC [id number] 09/08/2015 07:08:00 09/08/2015 23:59:59 CLS Outpatient TAMI CHILDRESS MD [facility] RAD SCREENING [id number] 08/15/2015 08:25:00 08/15/2015 23:59:59 CLS Outpatient JOSE CHAVEZ MD [facility] ONC [id number] 09/05/2014 14:37:00 09/05/2014 23:59:59 CLS Outpatient TAMI CHILDRESS MD [facility] RAD SCREENING [id number] 08/15/2014 08:49:00 08/15/2014 23:59:59 CLS Outpatient JOSE CHAVEZ MD [facility] ONC [id number] 05/30/2014 10:45:00 05/30/2014 23:59:59 CLS Outpatient ELIZABETH GALVIN, JOSE Galo [facility] RAD ABD PAIN, [id number] 09/02/2013 11:04:00 09/02/2013 23:59:59 CLS Outpatient TAMI CHILDRESS MD [facility] RAD ROUTINE [id number] 08/04/2013 14:33:00 08/04/2013 23:59:59 CLS Outpatient [id number] 05/20/2018 08:00:00 PEN Don ENGLE MD, MARS Contreras LEFT KNEE OSTEOARTHRITIS [id number] 03/26/2016 15:37:00 Document Registration [id number] 05/17/2011 09:35:00 Document Registration [id number] 11/17/2017 00:00:00 12/04/2017 07:37:00 DIS Outpatient MARS ENGLE [facility] 08/15/2015 13:21:24 ACT Document Registration [id number] 08/30/2013 09:53:00 08/30/2013 23:59:59 CLS Outpatient LOPEZ DO, SHALINI K
[2018-05-20 06:25] VITALS: BP 105/66
[2018-05-20] MEDS ORDERED: CEFUROXIME 1.5 GM (ZINACEF) VIAL ONE (06:30)
[2018-05-20] MEDS ORDERED: FAMOTIDINE 20MG/2ML IV (PEPCID) ONE (06:30)
[2018-05-20] MEDS ORDERED: NS (IVPB) 50 ML ONE (06:30)
[2018-05-20] MEDS ORDERED: ROCURONIUM 10 MG/ML 5 ML SYRINGE IV ONE (06:32)
[2018-05-20] MEDS ORDERED: MIDAZOLAM 2 MG/2 ML (VERSED) VIAL ONE (06:32)
[2018-05-20] MEDS ORDERED: LIDOCAINE PF 2% 5 ML (XYLOCAINE) VIAL ONE ×2 (06:32→06:55)
[2018-05-20] MEDS ORDERED: ONDANSETRON 4 MG/2 ML (SDV) Z0FRAN ONE ×3 (06:32→10:41)
[2018-05-20] MEDS ORDERED: proPOfol 200 MG/20 ML (DIPRIVAN) VIAL IV ONE (06:32)
[2018-05-20] MEDS ORDERED: SEVOFLURANE (ULTANE) 15 ML INHAL SOLN ONE ×8 (06:32→09:18)
[2018-05-20] MEDS ORDERED: DEXAMETHASONE 10 MG/ML (DECADRON) 1 ML VIAL ONE (06:32)
[2018-05-20] MEDS ORDERED: fentaNYL INJECTION 100 MCG/2 ML AMP ONE (06:37)
[2018-05-20] MEDS: LACTATED RINGERS 1,000 ML IV PRN ×2 (06:41→07:55)
[2018-05-20] MEDS ORDERED: CEFUROXIME INJECTION 1,500 MG in NS (IVPB) 50 ML IV ONE (06:45)
[2018-05-20] MEDS ORDERED: FAMOTIDINE 20MG/2ML IV (PEPCID) IVP ONE (06:45)
[2018-05-20] MEDS ORDERED: ROPIVACAINE 5MG/ML 30ML VIAL ONE (06:56)
[2018-05-20] MEDS ORDERED: ACETAMINOPHEN 325 MG TABLET PO PRN (07:15)
--- NOTE | 2018-05-20 07:23 | Progress Note-Pre Operative ---
Pre-Operative Progress Note H&P Reviewed The H&P was reviewed, patient examined and no changes noted. Date Seen by Provider: May 20, 2018 Time Seen by Provider: 07:11 Date H&P Reviewed: May 20, 2018 Time H&P Reviewed: 07:11 Pre-Operative Diagnosis: left knee primary osteoarthritis MARS ENGLE MD May 20, 2018 07:23
--- NOTE | 2018-05-20 07:24 | Progress Note-Post Operative ---
Post-Operative Progess Note Surgeon (s)/Meringuer (s) Surgeon MARS ENGLE MD Meringuer: Sp Mcghee Pre-Operative Diagnosis left knee primary osteoarthritis Post-Operative Diagnosis left knee primary osteoarthritis Procedure & Operative Findings Date of Procedure 05/20/18 Procedure Performed/Findings left total knee arthroplasty Anesthesia Type GETA plus regional Estimated Blood Loss Estimated blood loss (mL): minimal Specimens/Packing Specimens Removed none Packing: none MARS ENGLE MD May 20, 2018 07:24
[2018-05-20] MEDS ORDERED: OXYC-197 PO (07:25)
--- NOTE | 2018-05-20 07:27 | D/C HH Face to Face Order ---
D/C Face to Face Orders Instructions for Patient Patient Instructions/FollowUp: three weeks Physician to follow Patient: three weeks Discharge Diet for Home: Regular Diet Patient Data-Allergies,Ht & Wt Patient Allergies: Coded Allergies: Sulfa (Sulfonamide Antibiotics) (Verified Allergy, Mild, ITCHING, 05/12/18) fentanyl (Unverified Allergy, Unknown, NAUSEA AND VOMITING, 05/12/18) Height (Feet): 4 Height (Inches): 11.00 Weight (Pounds): 164 Weight (Ounces): 4.0 Home Health Need/Face to Face Date of Face to Face: May 20, 2018 Clinical Findings: Instability, Muscle weakness, Pain with ambulation, Unsteady gait I have seen Pt [id number]: Yes Discharged To: Home Diagnosis/Conditions: left total knee arthroplasty Patient is Homebound due to: Roland fall risk due to instabilty, Muscle weakness , Pain w/ambulation Homebound Status Due to the above stated illness, injury or surgical procedure (medical condition or diagnosis) and associated clinical findings, the patient is homebound because of his/her inability to leave home except with aid of a supportive device and/or person AND leaving the home requires a considerable and taxing effort or is medically contraindicated. Pt req the following assistanc: [facility] Nursing Orders Home Health Services Order: Physical Therapy-Evaluate & Treat Home Health Infusion Therapy Line Start Date: May 20, 2018 Line Start Time: 0620 Line Type: Peripheral IV Site Location: Forearm Therapy Orders Therapy Orders: Physical Therapy, PT to assess for OT Therapy Specific Orders: Eval assistive deivces, Teach enviro modifications/ safety, Gait training, Increase strength/endurance, Provider maintenance therapy , Restore ROM Certify Stmt I certify that this patient is under my care and that I, a nurse practitioner or a physician; a metal moulder's assistant working with me, had a face to face encounter that - meets the physician face to face encounter requirements with this patient as dated. MARS ENGLE MD May 20, 2018 07:27
[2018-05-20] MEDS ORDERED: morphine INJ 10 MG/ML 1ML (SYR OR VIAL) ONE (07:45)
[2018-05-20] MEDS ORDERED: NEOSTIGMINE 1 MG/ML 5 ML SYRINGE ONE (09:13)
[2018-05-20] MEDS ORDERED: GLYCOPYRROLATE 0.2 MG/ML (ROBINUL) 2 ML VIAL ONE (09:13)
[2018-05-20] MEDS ORDERED: MEPERIDINE (DEMEROL) INJ 50 MG/ML IVP PRN (09:45)
[2018-05-20] MEDS: ONDANSETRON 4 MG/2 ML (SDV) Z0FRAN IVP PRN ×4 (09:45→13:54)
[2018-05-20] MEDS: morphine INJ 10 MG/ML 1ML (SYR OR VIAL) IVP PRN ×2 (09:47→09:52)
[2018-05-20] MEDS ORDERED: HYDROmorphone 1 MG/ML (DILAUDID) 1 ML SYRINGE ONE ×2 (09:58→10:16)
[2018-05-20] MEDS: HYDROmorphone 1 MG/ML (DILAUDID) 1 ML SYRINGE IV PRN ×4 (10:00→10:30)
--- NOTE | 2018-05-20 11:00 | Diagnostic Imaging Report ---
INDICATION: Postoperative. TECHNIQUE: 2 post operative radiographs of the left knee 9:59 AM CORRELATION STUDY: None FINDINGS: There are postsurgical changes of a total knee arthroplasty. Alignment is anatomic. Installed hardware appearing unremarkable. Overlying soft tissue gas collections and skin susi are present. IMPRESSION: Postsurgical changes of a total knee replacement. Dictated by: Dictated on workstation # [id number]
--- NOTE | 2018-05-20 11:07 | Progress Note-Standard ---
Standard Progress Note Progress Notes/Assess & Plan Date Seen by Provider: May 20, 2018 Time Seen by Provider: 09:50 Progress/Assessment & Plan No complaints denies paresthesias Radiographs--HW well positioned. No fractures LLE--2 plus DP pulse with brisk cap refill. Intact DF and PF of toes and ankle. Sensation intact throughout s/p LTKA Mobilize as able MARS ENGLE MD May 20, 2018 11:07
[2018-05-20] MEDS ORDERED: NS IV 1000 ML 1,000 ML ONE (11:30)
[2018-05-20] MEDS ORDERED: PROMETHAZINE INJ 25 MG/ML (PHENERGAN) AMP IVP PRN (11:30)
[2018-05-20] MEDS ORDERED: PROMETHAZINE INJ 25 MG/ML (PHENERGAN) AMP ONE (11:31)
[2018-05-20] MEDS ORDERED: morphine PCA 30 MG/30 ML VIAL IV ONE (11:31)
--- NOTE | 2018-05-20 13:29 | OPERATIVE REPORT ---
DATE OF SERVICE: 05/20/2018 PREOPERATIVE DIAGNOSIS: Left knee primary osteoarthritis. POSTOPERATIVE DIAGNOSIS: Left knee primary osteoarthritis. PROCEDURE: Left total knee arthroplasty. SURGEON: Emir Whipple MD. ELECTRIC PILE DRIVER OPERATOR: VIDAL Smith, who assisted throughout the procedure and closed the incision. ANESTHESIA: General endotracheal plus Regional by Erwin Isaac CRNA. TOURNIQUET TIME: Approximately 75 minutes at 300 mmHg. ESTIMATED BLOOD LOSS: Minimal. DRAINS: None. COMPLICATIONS: None. POSTOPERATIVE PLAN: Routine total knee arthroplasty protocol. MATERIALS: MicroPort cemented size 3 femur, cemented size 2 tibia with 14 mm insert, and a cemented size 29 patellar button. STATEMENT OF MEDICAL NECESSITY: The patient is a 47-year-old female with longstanding progressive left knee pain and functional impairment. She has undergone treatment with injections, anti-inflammatories and a rest without relief. She had previously undergone a right total knee arthroplasty with excellent results and due to continued functional impairment despite extensive conservative measures, the patient elected to proceed with surgical intervention. DESCRIPTION OF PROCEDURE: After risks and benefits of the procedure were discussed and questions were answered and informed consent was signed and placed on the chart. The operative site was confirmed in the preoperative holding initiated by the surgeon. The patient was then transported to the operating room and after adequate levels of general endotracheal anesthetic were obtained, a timeout was called confirming the operative site. The left lower extremity was then prepped and draped in the usual sterile fashion with the leg elevated and the knee flexed, tourniquet inflated to 300 mmHg. A standard anterior approach was utilized. Hemostasis was obtained with cautery. A medial parapatellar arthrotomy was performed with a 1 cm cuff left on the patella for later reapproximation. A portion of the fat pad was resected. A subperiosteal release was performed in the proximal medial tibia being careful to stay on the bony surface. The ACL was resected. The intramedullary guide was passed into the femur and the distal cutting block was placed. The distal cut was made and the femur was sized to a size 3. Three cutting block was placed parallel to the epicondylar axis and cuts were made from posterior to anterior. A subperiosteal release was then carefully performed on the posterior distal femur, being careful to stay on the bony surface. The tibia was then prepared. The intramedullary guide was passed into the canal. The cutting block was placed. The drop talya transected the intermalleolar access and the cut was made. The tibia baseplate was pinned into position and again the drop talya transected the intermalleolar axis. The cut was made and the size 2 baseplate was placed. This was then pinned and the trials were inserted. The patella was then prepared using the free hand technique by resecting 10 mm off the undersurface. The peg guide was placed and the peg holes were drilled. A 29 trial was placed, 14 mm insert was placed on the tibia and full extension was obtained, 120 degrees of flexion with gravity was easily obtained. The patella tracked well. There was trace anterior drawer, negative posterior drawer. No varus valgus laxity in flexion or extension. In full extension, there was no varus valgus laxity or anterior, posterior laxity. The trials were removed. The joint was irrigated with pulse lavage. The proximal tibia was prepared with the drill and keel punch. The joint was copiously irrigated. The bone ends were irrigated and dried. Tibial baseplate was cemented into position. Excessive cement was removed. The superior surface was irrigated and dried and the polyethylene insert was placed. The distal femur was irrigated and dried and the femoral prosthesis was cemented in position removing excess cement. The knee was brought into full extension until the cement had cured. The undersurface of the patella was irrigated and dried. The patellar button was cemented into position. Excess cement was removed. Once cement had cured, the knee was taken through range of motion. Full extension was easily obtained 120 degrees of flexion with gravity was easily obtained. The patella tracked well. There was no medial/lateral laxity in flexion or extension. There was a trace anterior drawer, negative posterior drawer, no anterior/posterior laxity in full extension. The joint was further irrigated. The arthrotomy was closed with #2 Tevdek in [id number] interrupted fashion. The knee was flexed. Patella tracked well. The subcutaneous tissues were irrigated using a total of 6 liters of pulse lavage throughout the procedure. A 0 Vicryl was used for deep subcutaneous tissue, 2-0 Vicryl for the superficial subcutaneous tissue, susi used on the skin. A soft dressing was applied. The tourniquet was deflated and the patient was transferred to the recovery room awake and in stable condition. Job ID: [id number] DocumentID: [id number] Dictated Date: 05/20/2018 09:33:44 Heating Element Winder Date: 05/20/2018 13:29:04 Dictated By: MEIR WHIPPLE MD
[2018-05-20] MEDS: NS IV 1000 ML 1,000 ML IV SCH ×2 (13:32→20:10)
[2018-05-20] MEDS: SENNA W/DOCUSATE (SENOKOT S) TABLET PO SCH ×2 (13:49→20:09)
--- NOTE | 2018-05-20 14:53 | Physical Therapy Evaluation ---
PT Evaluation-General Medical Diagnosis Admission Date May 20, 2018 at 05:55 Medical Diagnosis: left TKA Onset Date: May 20, 2018 Therapy Diagnosis Therapy Diagnosis: impaired mobility, ROM Height/Weight Height (Feet): 4 Height (Inches): 11.00 Weight (Pounds): 164 Weight (Ounces): 4.0 Precautions Precautions/Isolations: Standard Precautions Weight Bear Status Right Lower Extremity: Right Full Weight Bearing Left Lower Extremity: Left Weight Bearing/Tolerated Referral Physician: Sp Mcghee Reason for Referral: Evaluation/Treatment Medical History Additional Medical History PAST MEDICAL HISTORY: Migraines. PAST SURGICAL HISTORY: Appendectomy, and right total knee arthroplasty. Reviewed History: Yes Social History Home: Single Level Entry Into Home: Stairs Without Railing PT Steps Into Home: 5 5 steps from the garage, 3 in the front Prior/Core FIM Prior Level of Function Functional [place] Measure 0=Not Assessed/NA 4=Minimal Assistance 1=Total Assistance 5=Supervision or Setup 2=Maximal Assistance 6=Modified [place] 3=Moderate Assistance 7=Complete [place] Bed Mobility: 7 Transfers (B,C,W/C) (FIM): 7 Gait: 7 PT Evaluation-Current Subjective Patient in bed pre tx, agrees to PT, has 7/10 pain in left knee. Patient is very nauseated and throws up in basin with just leaning forward in bed. Will perform bed exercises and put on CPM. Evaluation was attempted earlier but patient was nauseated. Pt/Family Goals to be independent at home Objective Patient Orientation: Person, Place, Situation Attachments: SCD's, Polar Pack, IV ROM/Strength ROM Lower Extremities left knee extension +7 degrees, flexion 85 degrees Strength Lower Extremities NT Neuromuscular (Tone, Coordination, Reflexes) NT Sensory Vision: Functional Hearing: Functional Sensation Right Lower Extremit: Intact Sensation Left Lower Extremity: Intact Transfers Functional [place] Measure 0=Not Assessed/NA 4=Minimal Assistance 1=Total Assistance 5=Supervision or Setup 2=Maximal Assistance 6=Modified [place] 3=Moderate Assistance 7=Complete [place] Treatment Patient performed TKA protocol x10 (AP, QS, HS, SAQ, SLR). CPM was donned and fit to her leg and set at 60/-2 degrees. Patient instructed in the use of her CPM. SCD's and polar care donned after treatment. Assessment/Needs Patient has impaired mobility, ROM post left TKA. Patient too nauseated to get up to ambulate at this time. Rehab Potential: Fair PT Short Term Goals Short Term Goals Time Frame: May 27, 2018 Transfers (B,C,W/C) (FIM): 5 Gait (FIM): 2 Gait Distance Comment: 50' Gait Level of Assist: 5 Gait Assistive Device: FWW Stairs (FIM): 2 # of Steps: 4 Stairs Level of Assist: 4 PT Plan Problem List Problem List: Activity Tolerance, Functional Strength, Safety, Balance, Gait, Transfer, Bed Mobility, ROM Treatment/Plan Treatment Plan: Continue Plan of Care Treatment Plan: Bed Mobility, Education, Functional Activity Irene, Functional Strength, Gait, Safety, Therapeutic Exercise, Transfers Treatment Duration: May 27, 2018 Frequency: 11 times per week Estimated Hrs Per Day: .25 hour per day (15-30') Patient and/or Family Agrees t: Yes Safety Risks/Education Patient Education: Reviewed Precautions, Correct Positioning, Disease Process, Safety Issues Teaching Recipient: Patient Teaching Methods: Demonstration, Discussion Response to Teaching: Reinforcement Needed Discharge Recommendations Plan Patient will perform bed mobility and transfer training, balance and endurance training, functional strengthening, stair training, gait training, and education to improve functional mobility and independence at home. Therapy D/C Recommendations: Home w/ Family Support Time/GCodes Time In: 1430 Time Out: 1445 Total Billed Treatment Time: 15 Total Billed Treatment 1 visit JOHNATHAN 15' DULCE SOLIZ PT May 20, 2018 14:53
[2018-05-20] MEDS: CEFUROXIME INJECTION 750 MG in NS (IVPB) 50 ML IV SCH ×2 (15:43→23:24)
[2018-05-20 16:15] VITALS: BP 127/76
[2018-05-20 19:45] VITALS: BP 135/76
[2018-05-20] MEDS: diphenhydrAMINE 50 MG/ML INJ (BENADRYL) IVP PRN (22:33)
[2018-05-21] VITALS: BP 121/68
[2018-05-21 04:00] VITALS: BP 144/84
[2018-05-21] MEDS: morphine PCA 30 MG/30 ML VIAL IV PRN ×2 (04:55→21:50)
[2018-05-21] MEDS: diphenhydrAMINE 50 MG/ML INJ (BENADRYL) IVP PRN (05:00)
[2018-05-21 05:56] LABS: HEMOGLOBIN 10.3 G/DL (11.5-16.0)
[2018-05-21] MEDS: MULTIVIT W/MINERALS TAB (THERAGRAN M) PO SCH (06:08)
[2018-05-21] MEDS: SENNA W/DOCUSATE (SENOKOT S) TABLET PO SCH ×2 (07:54→21:40)
[2018-05-21] MEDS: oxyCODONE/APAP 5/325MG (PERCOCET 5) TABLET PO PRN ×7 (07:54→21:40)
[2018-05-21] MEDS: ENOXAPARIN 30 MG/0.3 ML (LOVENOX) SYR SC SCH ×2 (07:55→21:39)
[2018-05-21] MEDS: ASPIRIN E.C. 81 MG (ECOTRIN) TAB PO SCH (07:55)
--- NOTE | 2018-05-21 07:59 | Progress Note-Standard ---
Standard Progress Note Progress Notes/Assess & Plan Date Seen by Provider: May 21, 2018 Time Seen by Provider: 07:58 Progress/Assessment & Plan No complaints denies paresthesias Radiographs--HW well positioned. No fractures LLE--2 plus DP pulse with brisk cap refill. Intact DF and PF of toes and ankle. Sensation intact throughout s/p LTKA Mobilize as able Final Diagnosis Nausea improved c/o pain in knee. Denies paresthesias Vital Signs Date Time Temp Pulse Resp B/P (MAP) Pulse Ox O2 Delivery O2 Flow Rate FiO2 05/21/18 06:13 16 05/21/18 04:00 97.7 100 18 144/84 (104) 98 Room Air 05/21/18 00:00 98.6 99 18 121/68 (85) 99 Room Air 05/20/18 20:10 Room Air 05/20/18 19:45 99.2 96 18 135/76 (95) 95 Room Air 05/20/18 16:15 98.5 84 18 127/76 (93) 98 Room Air 05/20/18 11:10 98 Room Air I & O 05/21/18 07:00 Intake Total 2330 ml Output Total 700 ml Balance 1630 ml Laboratory Tests Test 05/21/18 05:41 Range/Units Hemoglobin 10.3 L 11.5-16.0 G/DL Hematocrit 31 L 35-52 % LLE--dressing intact. NVI distally. No calf tenderness. Neg Salas's s/p LTKA mobilize MARS ENGLE MD May 21, 2018 07:59
[2018-05-21 08:00] VITALS: BP 155/80
[2018-05-21] MEDS: NS IV 1000 ML 1,000 ML IV SCH ×2 (08:02→12:02)
--- NOTE | 2018-05-21 08:05 | Anesthesia-General Post-Op ---
General Patient Condition Mental Status/LOC: Same as Preop Cardiovascular: Satisfactory Nausea/Vomiting: Absent Respiratory: Satisfactory Pain: Controlled Complications: Absent Post Op Complications Complications None Follow Up Care/Instructions Patient Instructions None needed. Anesthesia/Patient Condition Patient Condition Patient is doing well, no complaints, stable vital signs, no apparent adverse anesthesia problems. No complications reported per nursing. [place] [facility] [place]: EVARISTO Gray CRNA May 21, 2018 08:05
--- NOTE | 2018-05-21 09:50 | Physical Therapy Daily Note ---
PT Daily Note-Current Subjective "The block didn't work." "I cannot put weight on my left leg." Agrees to exercises as able and sitting EOB. Pain Numeric Pain Scale: 10-Worst Possible Pain Location: Left Location Body Site: Knee Pain Description: Ache, Stabbing Mental Status Patient Orientation: Person, Place, Time, Situation Transfers Functional [place] Measure 0=Not Assessed/NA 4=Minimal Assistance 1=Total Assistance 5=Supervision or Setup 2=Maximal Assistance 6=Modified [place] 3=Moderate Assistance 7=Complete IndependenceIRFPAI Quality Coding Scale 6 Independent with activity with or without an assistive device 5 Patient requires set up or clean up by helper. Patient completes activity by themselves 4 Supervision or touching assist (CGA). [place] provide cues , steadying assist 3 The helper provides less than half the effort to complete the activity 2 The helper provides more than half the effort to complete the activity 1 Dependent. The helper does all the effort to complete an activity 7 Patient refused to complete or attempt activity 9 The patient did not perform the activity before the current illness or injury 88 Not attempted due to Medical conditions or safety concerns Transfers (B, C, W/C) (FIM): 5 Scootin Supine to/from Sit: 5 Weight Bearing Right Lower Extremity: Right Full Weight Bearing Left Lower Extremity: Left Weight Bearing/Tolerated Exercises Supine Ex: Ankle pumps, Quad Set Supine Reps: 10 Seated Therapy Exercises: Ankle pumps, Long arc quads, Hip flexion Seated Reps: 10 (to promote ROM, strength and circulation) Treatments Sat EOB several minutes. Post treatment, polar pack applied and SCD's. Assessment LImited by reports or high pain and reports that her block did not work. Did not want to try to stand or transfer to the chair this visit. PT Short Term Goals Short Term Goals Time Frame: May 27, 2018 Transfers (B,C,W/C) (FIM): 5 Gait (FIM): 2 Gait Distance Comment: 50' Gait Level of Assist: 5 Gait Assistive Device: FWW Stairs (FIM): 2 # of Steps: 4 Stairs Level of Assist: 4 PT Plan Problem List Problem List: Activity Tolerance, Functional Strength, Safety, Balance, Gait, Transfer, Bed Mobility, Other (pain) Treatment/Plan Treatment Plan: Continue Plan of Care Treatment Plan: Bed Mobility, Education, Functional Activity Irene, Functional Strength, Gait, Safety, Therapeutic Exercise, Transfers Treatment Duration: May 27, 2018 Frequency: 11 times per week Estimated Hrs Per Day: .25 hour per day (15-30') Patient and/or Family Agrees t: Yes Safety Risks/Education Patient Education: Transfer Techniques, Safety Issues Teaching Recipient: Patient Teaching Methods: Discussion Response to Teaching: Reinforcement Needed Discharge Recommendations Therapy D/C Recommendations: Physical Therapy Home Care Time/GCodes Time In: 815 Time Out: 848 Total Billed Treatment Time: 33 Total Billed Treatment visit EX 18 FA 15 CJ LAUREANO PT May 21, 2018 09:50
[2018-05-21 12:00] VITALS: BP 142/68
--- NOTE | 2018-05-21 13:30 | Physical Therapy Daily Note ---
PT Daily Note-Current Subjective Agreeable. Reports her pain has decreased a bit. Agrees to walk. Pain Numeric Pain Scale: 6 Location: Left Location Body Site: Knee Pain Description: Ache Mental Status Patient Orientation: Person, Place, Time, Situation Transfers Functional [place] Measure 0=Not Assessed/NA 4=Minimal Assistance 1=Total Assistance 5=Supervision or Setup 2=Maximal Assistance 6=Modified [place] 3=Moderate Assistance 7=Complete IndependenceIRFPAI Quality Coding Scale 6 Independent with activity with or without an assistive device 5 Patient requires set up or clean up by helper. Patient completes activity by themselves 4 Supervision or touching assist (CGA). [place] provide cues , steadying assist 3 The helper provides less than half the effort to complete the activity 2 The helper provides more than half the effort to complete the activity 1 Dependent. The helper does all the effort to complete an activity 7 Patient refused to complete or attempt activity 9 The patient did not perform the activity before the current illness or injury 88 Not attempted due to Medical conditions or safety concerns Transfers (B, C, W/C) (FIM): 5 Supine to/from Sit: 6 Sit to/from Stand: 5 Weight Bearing Right Lower Extremity: Right Full Weight Bearing Left Lower Extremity: Left Weight Bearing/Tolerated Gait Training Gait (FIM): 5 Distance (FIM): 3=150 ft Distance: 300 ft Gait Level of Assist: 5 (SBA) Gait Assistive Device: FWW Cues for heel strike and toe off to faciliate knee flexion. She does perform step through gait. Exercises Seated Therapy Exercises: Ankle pumps, Long arc quads, Hamstring Curls Seated Reps: 12 Assessment Current Status: Good Progress Decreased pain this afternoon. Did well with gait. Progressing. PT Short Term Goals Short Term Goals Time Frame: May 27, 2018 Transfers (B,C,W/C) (FIM): 5 Gait (FIM): 2 Gait Distance Comment: 50' Gait Level of Assist: 5 Gait Assistive Device: FWW Stairs (FIM): 2 # of Steps: 4 Stairs Level of Assist: 4 PT Plan Problem List Problem List: Activity Tolerance, Functional Strength, Safety, Balance, Gait, Transfer, Bed Mobility Treatment/Plan Treatment Plan: Continue Plan of Care Treatment Plan: Bed Mobility, Education, Functional Activity Irene, Functional Strength, Gait, Safety, Therapeutic Exercise, Transfers Treatment Duration: May 27, 2018 Frequency: 11 times per week Estimated Hrs Per Day: .25 hour per day (15-30') Patient and/or Family Agrees t: Yes Safety Risks/Education Patient Education: Gait Training Teaching Recipient: Patient Teaching Methods: Demonstration, Discussion Response to Teaching: Reinforcement Needed Time/GCodes Time In: 1255 Time Out: 1320 Total Billed Treatment Time: 25 Total Billed Treatment visit GT 15 EX 10 CJ LAUREANO PT May 21, 2018 13:30
[2018-05-21] MEDS: ONDANSETRON 4 MG/2 ML (SDV) Z0FRAN IVP PRN (14:24)
--- NOTE | 2018-05-21 14:57 | Occupational Therapy Eval ---
OT Evaluation-General/PLF Medical Diagnosis Admission Date May 20, 2018 at 05:55 Medical Diagnosis: left TKA Onset Date: May 20, 2018 Therapy Diagnosis Therapy Diagnosis: Decreased ADL skills Height/Weight Height (Feet): 4 Height (Inches): 11.00 Weight (Pounds): 164 Weight (Ounces): 4.0 Precautions Precautions/Isolations: Fall Prevention, Standard Precautions Safety Interventions: Reorient-PRN Weight Bear Status Weight Bearing Restriction: Weight Bearing/Tolerated Referral Physician: Sp Mcghee Referral Reason: Activity Tolerance, Self Care, Evaluation/Treatment, Strengthening/ROM Medical History Pertinent Medical History: OA Additional Medical History Right TKR, appendectomy, migraines, Current History Pt. had other knee replaced in November. States that she was on a walker for two weeks and then a cane for two weeks and then went back to work with no assistive device. Reviewed History: Yes Social History Home: Single Level Current Living Status: Significant Other Entry Into Home: Stairs Without Railing Steps Into Home: 5 ADL-Prior Level of Function ADL PLOF Comments Pt. was independent with all daily tasks. DME/Equipment: Bath Chair, Shower, Tub/Shower DME/Equipment Comments Pt. has a walker and cane. Occupation: Works for [employer] [address] Self: Yes OT Current Status Subjective Pt. is not reporting pain at this time. Has pain pump. Has just finished with PT. Appearance Pt. is up in chair. Alert and smiling. States that she is "doing much better" now than this morning. Mental Status/Objective Patient Orientation: Person, Place, Time, Situation Current Glasses/Contacts: Yes Upper Extremity ROM WFL Upper Extremity Strength WFL Edema: Pt. does have edema in left UE. Pt. reports that her left UE has "always been bigger" than her right. ADL-Treatment Functional [place] Measure 0=Not Assessed/NA 4=Minimal Assistance 1=Total Assistance 5=Supervision or Setup 2=Maximal Assistance 6=Modified [place] 3=Moderate Assistance 7=Complete IndependenceIRFPAI Quality Coding Scale 6 Independent with activity with or without an assistive device 5 Patient requires set up or clean up by helper. Patient completes activity by themselves 4 Supervision or touching assist (CGA). [place] provide cues , steadying assist 3 The helper provides less than half the effort to complete the activity 2 The helper provides more than half the effort to complete the activity 1 Dependent. The helper does all the effort to complete an activity 7 Patient refused to complete or attempt activity 9 The patient did not perform the activity before the current illness or injury 88 Not attempted due to Medical conditions or safety concerns Lower Body Dressing (FIM): 2 (Pt. is unable to reach her feet to doff or don socks.) Transfers (B, C, W/C) (FIM): 5 (SBA to stand out of chair.) Pt. reports that she has not had any difficulty with eating or toileting. Declines spongebath or shower at this time. OT educates her on the use of AE for LE dressing. Pt. agrees and OT will bring equipment tomorrow. Education OT Patient Education: Correct positioning, Modified ADL techniques, Progress toward Goal/Update tx plan, Purpose of tx/functional activities, Reviewed precautions, Rehab process, Transfer techniques, Use of adapted equipment Teaching Recipient: Patient Teaching Methods: Demonstration Response to Teaching: Verbalize Understanding, Return Demonstration OT Short Term Goals Short Term Goals Transfers (B,C,W/C) (FIM): 5 1=Demonstrate adherence to instructed precautions during ADL tasks. 2=Patient will verbalize/demonstrate understanding of assistive devices/ modifications for ADL. 3=Patient will improve strength/tolerance for activity to enable patient to perform ADL's. OT Scrap Burner Goals Scrap Burner Goals Time Frame: May 28, 2018 Eating (FIM): 7 Grooming(FIM): 6 Bathing(FIM): 6 Upper Body Dressing(FIM): 6 Lower Body Dressing(FIM): 6 Toileting(FIM): 6 Transfers (B,C,W/C) (FIM): 6 Toilet/Commode Transfer(FIM): 6 Shower Transfer(FIM): 6 Additional Goals: 1-Demonstrate ADL Tasks, 2-Verbalize Understanding, 3- ImproveStrength/Irene 1=Demonstrate adherence to instructed precautions during ADL tasks. 2=Patient will verbalize/demonstrate understanding of assistive devices/ modifications for ADL. 3=Patient will improve strength/tolerance for activity to enable patient to perform ADL's. OT Education/Plan Problem List/Assessment Assessment: Decreased Activ Tolerance, Impaired I ADL's, Impaired Self-Care Skills Discharge Recommendations Plan/Recommendations: Continue POC Therapy D/C Recommendations: Home w/ Family Support Equpiment Recommendations-D/C: Hip Kit Treatment Plan/Plan of Care Treatment,Training & Education: Yes Patient would benefit from OT for education, treatment and training to promote independence in ADL's, mobility, safety and/or upper extremity function for ADL' s. Plan of Care: ADL Retraining, Functional Mobility, UE Funct Exercise/Act Treatment Duration: May 28, 2018 Frequency: 5 times per week Estimated Hrs Per Day: .25 hour per day Agreement: Yes Rehab Potential: Good Time/GCodes Start Time: 13:25 Stop Time: 13:35 Total Time Billed (hr/min): 10 Billed Treatment Time 1, SUSAN LUCAS OT May 21, 2018 14:57
[2018-05-21 15:25] VITALS: BP 136/78
[2018-05-21 19:41] VITALS: BP 136/71
[2018-05-22] MEDS: oxyCODONE/APAP 5/325MG (PERCOCET 5) TABLET PO PRN ×6 (00:01→20:37)
[2018-05-22 00:33] VITALS: BP 115/68
[2018-05-22 04:34] VITALS: BP 122/72
--- NOTE | 2018-05-22 07:05 | Progress Note-Standard ---
Standard Progress Note Progress Notes/Assess & Plan Date Seen by Provider: May 22, 2018 Time Seen by Provider: 07:03 Progress/Assessment & Plan No complaints denies paresthesias Radiographs--HW well positioned. No fractures LLE--2 plus DP pulse with brisk cap refill. Intact DF and PF of toes and ankle. Sensation intact throughout s/p LTKA Mobilize as able Final Diagnosis feeling better Vital Signs Date Time Temp Pulse Resp B/P (MAP) Pulse Ox O2 Delivery O2 Flow Rate FiO2 05/22/18 04:34 98.4 97 17 122/72 (89) 95 Room Air 05/22/18 00:33 98.2 98 18 115/68 (84) 97 Room Air 05/21/18 21:00 98 Room Air 05/21/18 19:41 98.0 92 18 136/71 (92) 99 Room Air 05/21/18 19:18 18 05/21/18 15:25 98.4 97 18 136/78 (97) 99 Room Air 05/21/18 12:00 97.6 102 18 142/68 (92) 96 Room Air 05/21/18 08:00 98.0 99 18 155/80 (105) 97 Room Air I & O 05/22/18 07:00 Intake Total 3740 ml Output Total 0 ml Balance 3740 ml LLE--AROM 0. SLR with assistance. Patella tracking well. No calf tenderness s/p LTKA progressing DC SPORTS CLERK Ok to shower today PT/OT likely DC tomorrow MARS ENGLE MD May 22, 2018 07:05
[2018-05-22] MEDS ORDERED: morphine INJ 4 MG/ML 1 ML (VIAL/SYRINGE) IVP PRN (07:15)
[2018-05-22 08:00] VITALS: BP 131/76
[2018-05-22 08:12] LABS: HEMOGLOBIN 9.4 G/DL (11.5-16.0)
[2018-05-22] MEDS: ASPIRIN E.C. 81 MG (ECOTRIN) TAB PO SCH (08:14)
[2018-05-22] MEDS: ENOXAPARIN 30 MG/0.3 ML (LOVENOX) SYR SC SCH ×2 (08:14→20:37)
[2018-05-22] MEDS: MULTIVIT W/MINERALS TAB (THERAGRAN M) PO SCH (08:14)
[2018-05-22] MEDS: SENNA W/DOCUSATE (SENOKOT S) TABLET PO SCH ×2 (08:14→20:37)
--- NOTE | 2018-05-22 09:36 | Physical Therapy Daily Note ---
PT Daily Note-Current Subjective Patient reports she feels better today. Pain Numeric Pain Scale: 5-Moderate Pain Location: Left Location Body Site: Knee Pain Description: Acute Mental Status Patient Orientation: Normal For Age Transfers Functional [place] Measure 0=Not Assessed/NA 4=Minimal Assistance 1=Total Assistance 5=Supervision or Setup 2=Maximal Assistance 6=Modified [place] 3=Moderate Assistance 7=Complete IndependenceIRFPAI Quality Coding Scale 6 Independent with activity with or without an assistive device 5 Patient requires set up or clean up by helper. Patient completes activity by themselves 4 Supervision or touching assist (CGA). [place] provide cues , steadying assist 3 The helper provides less than half the effort to complete the activity 2 The helper provides more than half the effort to complete the activity 1 Dependent. The helper does all the effort to complete an activity 7 Patient refused to complete or attempt activity 9 The patient did not perform the activity before the current illness or injury 88 Not attempted due to Medical conditions or safety concerns Transfers (B, C, W/C) (FIM): 6 Scootin Rollin Supine to/from Sit: 6 Sit to/from Stand: 6 Weight Bearing Right Lower Extremity: Right Full Weight Bearing Left Lower Extremity: Left Weight Bearing/Tolerated Gait Training Gait (FIM): 6 Distance (FIM): 3=150 ft Distance: >400' Gait Level of Assist: 6 Gait Assistive Device: FWW antalgic, functional gait sequence Stair Training Stair Training: Handrails/: 2 handrails Stairs (FIM): 5 #of Steps: 4 Stairs: Pattern: Step to Level of Assist: 5 household status Exercises Supine Ex: Ankle pumps, Quad Set, Heel Slides, Straight leg raise Supine Reps: 15 Seated Therapy Exercises: Long arc quads Seated Reps: 25 Treatments CPM and polar pack 0-[address] Assessment Patient has been instructed to ambulate PRN in hallway and up ad nicolasa in room. Patient progressing with treatment plan. PT Short Term Goals Short Term Goals Time Frame: May 27, 2018 Transfers (B,C,W/C) (FIM): 5 Gait (FIM): 2 Gait Distance Comment: 50' Gait Level of Assist: 5 Gait Assistive Device: FWW Stairs (FIM): 2 # of Steps: 4 Stairs Level of Assist: 4 PT Plan Treatment/Plan Treatment Plan: Continue Plan of Care Treatment Plan: Bed Mobility, Education, Functional Activity Irene, Functional Strength, Gait, Safety, Therapeutic Exercise, Transfers Treatment Duration: May 27, 2018 Frequency: 11 times per week Estimated Hrs Per Day: .25 hour per day (15-30') Patient and/or Family Agrees t: Yes Time/GCodes Time In: 835 Time Out: 900 Total Billed Treatment Time: 23 Total Billed Treatment 1 visit EX 12 min GT 13 min LETA MCGARRY PT May 22, 2018 09:36
[2018-05-22 12:00] VITALS: BP 132/70
--- NOTE | 2018-05-22 13:00 | Occupational Ther Daily Note ---
OT Current Status-Daily Note Subjective Attempted to see pt 2x's, first time pt was eating then 2nd time pt was ambulating in the halls. 3rd try pt was available. Pt agrees to therapy. Pt c /o pain, did not rate. She stated "I have a high pain tolerance and I want to move." Mental Status/Objective Patient Orientation: Person, Place, Time, Situation Functional [place] Measure 0=Not Assessed/NA 4=Minimal Assistance 1=Total Assistance 5=Supervision or Setup 2=Maximal Assistance 6=Modified [place] 3=Moderate Assistance 7=Complete [place] ADL-Treatment Per nrsg report and pt, pt completed shower, grooming and dressing mod I. Pt stated that she has walk-in shower at home that she will use. Other Treatment Pt given medium resistance theraband and exercise handout. Pt able to complete exercises, demonstrated understanding and correct movements. After therapy, pt sitting on EOB with call light/phone in reach. All needs met in room. Education OT Patient Education: Home exercise program Teaching Recipient: Patient Teaching Methods: Demonstration, Handout, Discussion Response to Teaching: Verbalize Understanding, Return Demonstration OT Short Term Goals Short Term Goals Transfers (B,C,W/C) (FIM): 5 1=Demonstrate adherence to instructed precautions during ADL tasks. 2=Patient will verbalize/demonstrate understanding of assistive devices/ modifications for ADL. 3=Patient will improve strength/tolerance for activity to enable patient to perform ADL's. OT Extension Service Agent Goals Extension Service Agent Goals Time Frame: May 28, 2018 Eating (FIM): 7 Grooming(FIM): 6 Bathing(FIM): 6 Upper Body Dressing(FIM): 6 Lower Body Dressing(FIM): 6 Toileting(FIM): 6 Transfers (B,C,W/C) (FIM): 6 Toilet/Commode Transfer(FIM): 6 Shower Transfer(FIM): 6 Additional Goals: 1-Demonstrate ADL Tasks, 2-Verbalize Understanding, 3- ImproveStrength/Irene 1=Demonstrate adherence to instructed precautions during ADL tasks. 2=Patient will verbalize/demonstrate understanding of assistive devices/ modifications for ADL. 3=Patient will improve strength/tolerance for activity to enable patient to perform ADL's. OT Education/Plan Discharge Recommendations Plan/Recommendations: Continue POC Treatment Plan/Plan of Care Patient would benefit from OT for education, treatment and training to promote independence in ADL's, mobility, safety and/or upper extremity function for ADL' s. Plan of Care: ADL Retraining, Functional Mobility, UE Funct Exercise/Act Treatment Duration: May 28, 2018 Frequency: 5 times per week Estimated Hrs Per Day: .25 hour per day Agreement: Yes Rehab Potential: Good Time/GCodes Start Time: 12:40 Stop Time: 12:50 Total Time Billed (hr/min): 10 Billed Treatment Time 1 visit-EX 1 (10 min) JC PEREZ May 22, 2018 13:00
--- NOTE | 2018-05-22 13:28 | Physical Therapy Daily Note ---
PT Daily Note-Current Subjective Patient reports she has been up ad nicolasa in hallway. Agrees to PT. Pain Numeric Pain Scale: 5-Moderate Pain Location: Left Location Body Site: Knee Pain Description: Acute Mental Status Patient Orientation: Normal For Age Transfers Functional [place] Measure 0=Not Assessed/NA 4=Minimal Assistance 1=Total Assistance 5=Supervision or Setup 2=Maximal Assistance 6=Modified [place] 3=Moderate Assistance 7=Complete IndependenceIRFPAI Quality Coding Scale 6 Independent with activity with or without an assistive device 5 Patient requires set up or clean up by helper. Patient completes activity by themselves 4 Supervision or touching assist (CGA). [place] provide cues , steadying assist 3 The helper provides less than half the effort to complete the activity 2 The helper provides more than half the effort to complete the activity 1 Dependent. The helper does all the effort to complete an activity 7 Patient refused to complete or attempt activity 9 The patient did not perform the activity before the current illness or injury 88 Not attempted due to Medical conditions or safety concerns Transfers (B, C, W/C) (FIM): 6 Scootin Rollin Supine to/from Sit: 6 Sit to/from Stand: 6 Weight Bearing Right Lower Extremity: Right Full Weight Bearing Left Lower Extremity: Left Weight Bearing/Tolerated Gait Training Gait (FIM): 6 Distance (FIM): 3=150 ft Distance: 500' Gait Level of Assist: 6 Gait Assistive Device: FWW reciprocal pattern/antalgic gait Exercises Supine Ex: Ankle pumps, Quad Set, Heel Slides, Straight leg raise Supine Reps: 15 Seated Therapy Exercises: Ankle pumps, Long arc quads Seated Reps: 15 Assessment Patient progressing with treatment plan and will dismiss to home tomorrow. PT Short Term Goals Short Term Goals Time Frame: May 27, 2018 Transfers (B,C,W/C) (FIM): 5 Gait (FIM): 2 Gait Distance Comment: 50' Gait Level of Assist: 5 Gait Assistive Device: FWW Stairs (FIM): 2 # of Steps: 4 Stairs Level of Assist: 4 PT Plan Treatment/Plan Treatment Plan: Continue Plan of Care Treatment Plan: Bed Mobility, Education, Functional Activity Irene, Functional Strength, Gait, Safety, Therapeutic Exercise, Transfers Treatment Duration: May 27, 2018 Frequency: 11 times per week Estimated Hrs Per Day: .25 hour per day (15-30') Patient and/or Family Agrees t: Yes Time/GCodes Time In: 1300 Time Out: 1315 Total Billed Treatment Time: 15 Total Billed Treatment 1 visit FA 15 min LETA MCGARRY PT May 22, 2018 13:28
[2018-05-22 16:20] VITALS: BP 131/73
[2018-05-23] MEDS: oxyCODONE/APAP 5/325MG (PERCOCET 5) TABLET PO PRN ×3 (00:15→08:27)
[2018-05-23] MEDS: MULTIVIT W/MINERALS TAB (THERAGRAN M) PO SCH (05:26)
[2018-05-23 06:47] LABS: HEMOGLOBIN 9.9 G/DL (11.5-16.0)
--- NOTE | 2018-05-23 08:17 | Physical Therapy Daily Note ---
PT Daily Note-Current Subjective Patient c/o left calf tightness. Noted edema of total left LE. Pain Numeric Pain Scale: 5-Moderate Pain Location: Left Location Body Site: Knee Pain Description: Acute, Heavy Mental Status Patient Orientation: Normal For Age Transfers Functional [place] Measure 0=Not Assessed/NA 4=Minimal Assistance 1=Total Assistance 5=Supervision or Setup 2=Maximal Assistance 6=Modified [place] 3=Moderate Assistance 7=Complete IndependenceIRFPAI Quality Coding Scale 6 Independent with activity with or without an assistive device 5 Patient requires set up or clean up by helper. Patient completes activity by themselves 4 Supervision or touching assist (CGA). [place] provide cues , steadying assist 3 The helper provides less than half the effort to complete the activity 2 The helper provides more than half the effort to complete the activity 1 Dependent. The helper does all the effort to complete an activity 7 Patient refused to complete or attempt activity 9 The patient did not perform the activity before the current illness or injury 88 Not attempted due to Medical conditions or safety concerns Transfers (B, C, W/C) (FIM): 6 Scootin Supine to/from Sit: 6 Sit to/from Stand: 6 Weight Bearing Right Lower Extremity: Right Full Weight Bearing Left Lower Extremity: Left Weight Bearing/Tolerated Gait Training Gait (FIM): 6 Distance (FIM): 3=150 ft Distance: >400' Gait Level of Assist: 6 Gait Assistive Device: FWW steady, antalgic gait sequence Exercises Seated Therapy Exercises: LE Protocol (gastroc stretch with bilateral LE extended), Ankle pumps, Long arc quads Assessment Patient tolerated treatment well and will dismiss to home on this date. She will receive home health PT and is compliant with HEP. PT Short Term Goals Short Term Goals Time Frame: May 27, 2018 Transfers (B,C,W/C) (FIM): 5 Gait (FIM): 2 Gait Distance Comment: 50' Gait Level of Assist: 5 Gait Assistive Device: FWW Stairs (FIM): 2 # of Steps: 4 Stairs Level of Assist: 4 PT Plan Treatment/Plan Treatment Plan: Discontinue PT, goals met Treatment Plan: Bed Mobility, Education, Functional Activity Irene, Functional Strength, Gait, Safety, Therapeutic Exercise, Transfers Treatment Duration: May 27, 2018 Frequency: 11 times per week Estimated Hrs Per Day: .25 hour per day (15-30') Patient and/or Family Agrees t: Yes Time/GCodes Time In: 746 Time Out: 800 Total Billed Treatment Time: 14 Total Billed Treatment 1 visit FA 14 min LETA MCGARRY PT May 23, 2018 08:17
[2018-05-23] MEDS: ASPIRIN E.C. 81 MG (ECOTRIN) TAB PO SCH (08:27)
[2018-05-23] MEDS: ENOXAPARIN 30 MG/0.3 ML (LOVENOX) SYR SC SCH (08:27)
[2018-05-23 08:58] VITALS: BP 131/62
[2018-05-23] MEDS: SENNA W/DOCUSATE (SENOKOT S) TABLET PO SCH (09:00)
--- NOTE | 2018-05-23 09:39 | Progress Note-Standard ---
Standard Progress Note Progress Notes/Assess & Plan Date Seen by Provider: May 23, 2018 Time Seen by Provider: 09:38 Progress/Assessment & Plan No complaints denies paresthesias Radiographs--HW well positioned. No fractures LLE--2 plus DP pulse with brisk cap refill. Intact DF and PF of toes and ankle. Sensation intact throughout s/p LTKA Mobilize as able Final Diagnosis No complaints Vital Signs Date Time Temp Pulse Resp B/P (MAP) Pulse Ox O2 Delivery O2 Flow Rate FiO2 05/23/18 08:58 97.6 106 20 131/62 (85) 93 Room Air 05/23/18 00:44 98.9 102 20 93 Room Air 05/22/18 21:42 98 Room Air 05/22/18 18:38 100.0 05/22/18 16:20 100.4 100 20 131/73 (92) 98 Room Air 05/22/18 12:00 98.0 91 20 132/70 (90) 96 Room Air I & O 05/23/18 07:00 Intake Total 2100 ml Balance 2100 ml Laboratory Tests Test 05/23/18 06:40 Range/Units Hemoglobin 9.9 L 11.5-16.0 G/DL Hematocrit 29 L 35-52 % LLE--incision clean and dry. No calf tenderness. Neg Salas's. Pos SLR. active [id number] s/p LTKA doing well DC home MARS ENGLE MD May 23, 2018 09:39
--- NOTE | 2018-05-23 22:17 | DISCHARGE SUMMARY ---
DATE OF SERVICE: DIAGNOSES: 1. Left knee primary osteoarthritis. 2. History of migraines. 3. Hypertension. PROCEDURE: Left total knee arthroplasty. SUMMARY: The patient is a 47-year-old female who underwent a left total knee arthroplasty on the day of admission. Postoperatively, she did very well. At the time of discharge, her wound was clean and dry. She had no calf tenderness. Negative Homans sign. She attained independent status with physical therapy. She can perform a straight leg raise and had active flexion to 80 degrees. She was tolerating her diet well and tolerating pain with oral pain medication. CONDITION AT DISCHARGE: Good. DISCHARGE DIET: Regular. FOLLOWUP: Follow up is in 3 weeks. Home physical therapy has been arranged. DISCHARGE MEDICATIONS: Home medications, Percocet as needed for pain and aspirin. ACTIVITIES: Weightbearing as tolerated with walker. Job ID: [id number] DocumentID: [id number] Dictated Date: 05/23/2018 09:41:53 [facility] Internship Date: 05/23/2018 22:16:27 Dictated By: MARS ENGLE MD
== END 2018-05-23 10:15 | disposition home health service (06) | DRG 470 ==
LOC: 4TH 05:55 → SURG 05:56 → 4TH 11:00
PROVIDERS: ADMIT Orthopaedic Surgery; ATTEND Orthopaedic Surgery
PROC: 0SRD0J9 Replacement of Left Knee Joint with Synthetic Substitute, Cemented, Open Approach (ICD-10-PCS; principal; 2018-05-20 07:34)
DX: M17.12 Unilateral primary osteoarthritis, left knee (principal); G43.909 Migraine, unspecified, not intractable, without status migrainosus; I10 Essential (primary) hypertension; Z96.651 Presence of right artificial knee joint
CPT/HCPCS: 36415; 73560; 84703; 85014; 85018; 86850; 86900; 86901; 94664

== ENCOUNTER 2018-07-03 16:05 | Outpatient (RCR) | payer BC ==
[~2018-07-03 16:05] MED LIST changes: -OXYC-197 PO; +OXYC1TAB87 PO
== END 2018-07-20 15:27 | disposition home or self-care (01) ==
PROVIDERS: ATTEND Orthopaedic Surgery
DX: Z47.1 Aftercare following joint replacement surgery (principal); Z96.652 Presence of left artificial knee joint

== ENCOUNTER → 2018-09-07 | Outpatient (CLI) | payer BC ==
--- NOTE | 2018-09-07 08:55 | Diagnostic Imaging Report ---
INDICATION: Routine screening. COMPARISON: 08/25/2017 and 08/28/2016. TECHNIQUE: 2D and 3D bilateral screening mammography was performed with CAD. FINDINGS: Both breasts are heterogeneously dense, limiting the sensitivity of mammography. The parenchymal pattern is stable. No dominant mass or malignant appearing microcalcifications are seen. The axillae are unremarkable. IMPRESSION: No mammographic features suspicious for malignancy are identified. ACR BI-RADS Category 1: Negative. Result letter will be mailed to the patient. Note: At least 10% of breast cancer is not imaged by mammography. Dictated by: Dictated on workstation # [id number]
== END ==
LOC: RAD 06:59
PROVIDERS: ATTEND Obstetrics & Gynecology
DX: Z12.31 Encounter for screening mammogram for malignant neoplasm of breast (principal)
CPT/HCPCS: 77067

== ENCOUNTER 2018-10-15 14:53 | Outpatient (RCR) | payer BC ==
[2018-10-15 15:09] LABS: BASOPHILS % (AUTO) 0 % (0-10); EOSINOPHILS # (AUTO) 0.4 10^3/uL (0.0-0.3); EOSINOPHILS % (AUTO) 4 % (0-10); HEMATOCRIT 37 % (35-52); LYMPHOCYTES # (AUTO) 4.3 X 10^3 (1.0-4.0); LYMPHOCYTES % (AUTO) 48 % (12-44); MEAN CORPUSCULAR HEMOGLOBIN 27 PG (25-34); MEAN CORPUSCULAR HGB CONC 33 G/DL (32-36); MEAN CORPUSCULAR VOLUME 83 FL (80-99); MEAN PLATELET VOLUME 10.4 FL (7.4-10.4); MONOCYTES # (AUTO) 0.6 X 10^3 (0.0-1.0); MONOCYTES % (AUTO) 6 % (0-12); NEUTROPHILS # (AUTO) 3.6 X 10^3 (1.8-7.8); NEUTROPHILS % (AUTO) 41 % (42-75); PLATELET COUNT 458 10^3/uL (130-400); RED CELL DISTRIBUTION WIDTH 14.2 % (10.0-14.5); WHITE BLOOD COUNT 8.8 10^3/uL (4.3-11.0)
[2018-10-15 15:32] LABS: ALANINE AMINOTRANSFERASE 7 U/L (0-55); ALBUMIN 4.1 GM/DL (3.2-4.5); ALKALINE PHOSPHATASE 103 U/L (40-136); BILIRUBIN,TOTAL 0.2 MG/DL (0.1-1.0); BUN/CREATININE RATIO 13; CALCIUM 10.2 MG/DL (8.5-10.1); CARBON DIOXIDE 26 MMOL/L (21-32); CHLORIDE 106 MMOL/L (98-107); CREATININE SERUM 0.78 MG/DL (0.60-1.30); GFR ESTIMATED > 60; GLUCOSE 115 MG/DL (70-105); POTASSIUM 4.9 MMOL/L (3.6-5.0); SODIUM 142 MMOL/L (135-145); TOTAL PROTEIN 7.1 GM/DL (6.4-8.2)
== END 2019-01-13 | disposition home or self-care (01) ==
LOC: ONC 14:53
PROVIDERS: ATTEND Internal Medicine Hematology & Oncology
DX: D12.1 Benign neoplasm of appendix (principal); I10 Essential (primary) hypertension; E78.5 Hyperlipidemia, unspecified; Z79.899 Other long term (current) drug therapy
CPT/HCPCS: 36415; 80053; 85025; 99213

== ENCOUNTER 2019-05-12 12:35 | Outpatient (RCR) | payer BC ==
[2019-05-12 13:09] LABS: BASOPHILS # (AUTO) 0.1 10^3/uL (0.0-0.1); BASOPHILS % (AUTO) 1 % (0-10); EOSINOPHILS % (AUTO) 10 % (0-10); HEMATOCRIT 37 % (35-52); LYMPHOCYTES # (AUTO) 4.1 X 10^3 (1.0-4.0); LYMPHOCYTES % (AUTO) 43 % (12-44); MEAN CORPUSCULAR HEMOGLOBIN 27 PG (25-34); MEAN CORPUSCULAR HGB CONC 33 G/DL (32-36); MEAN CORPUSCULAR VOLUME 83 FL (80-99); MEAN PLATELET VOLUME 10.7 FL (7.4-10.4); MONOCYTES # (AUTO) 0.5 X 10^3 (0.0-1.0); MONOCYTES % (AUTO) 5 % (0-12); NEUTROPHILS # (AUTO) 3.8 X 10^3 (1.8-7.8); NEUTROPHILS % (AUTO) 41 % (42-75); PLATELET COUNT 436 10^3/uL (130-400); RED CELL DISTRIBUTION WIDTH 13.8 % (10.0-14.5); WHITE BLOOD COUNT 9.4 10^3/uL (4.3-11.0)
[2019-05-12 13:31] LABS: ALANINE AMINOTRANSFERASE 14 U/L (0-55); ALKALINE PHOSPHATASE 88 U/L (40-136); BILIRUBIN,TOTAL 0.3 MG/DL (0.1-1.0); BUN/CREATININE RATIO 12; CALCIUM 10.9 MG/DL (8.5-10.1); CARBON DIOXIDE 26 MMOL/L (21-32); CHLORIDE 101 MMOL/L (98-107); CREATININE SERUM 0.77 MG/DL (0.60-1.30); GFR ESTIMATED > 60; GLUCOSE 88 MG/DL (70-105); POTASSIUM 4.5 MMOL/L (3.6-5.0); SODIUM 138 MMOL/L (135-145); TOTAL PROTEIN 7.4 GM/DL (6.4-8.2)
== END 2019-08-10 | disposition home or self-care (01) ==
LOC: ONC 12:35
PROVIDERS: ATTEND Internal Medicine Hematology & Oncology
DX: D12.1 Benign neoplasm of appendix (principal); R79.89 Other specified abnormal findings of blood chemistry; D72.823 Leukemoid reaction; K58.9 Irritable bowel syndrome, unspecified; G44.209 Tension-type headache, unspecified, not intractable; Z79.899 Other long term (current) drug therapy
CPT/HCPCS: 36415; 80053; 85025; 99213

== ENCOUNTER → 2019-09-09 | Outpatient (CLI) | payer BC ==
--- NOTE | 2019-09-09 15:54 | Diagnostic Imaging Report ---
INDICATION: Routine screening. Comparison is made with prior mammograms from 09/07/2018 and 08/25/2017. 2-D and 3-D bilateral screening mammography was performed. The current study was also evaluated with a Computer Aided Detection (CAD) system. 3-D tomosynthesis was also performed and reviewed. FINDINGS: Scattered fibroglandular densities are identified bilaterally. No mass or malignant-appearing microcalcifications are seen. Axillae are unremarkable. IMPRESSION: No mammographic features suspicious for malignancy are identified. ACR BI-RADS Category 1: Negative. Result letter will be mailed to the patient. Note: At least 10% of breast cancer is not imaged by mammography. Dictated by: Dictated on workstation # [id number]
== END ==
LOC: RAD 15:03
PROVIDERS: ATTEND Obstetrics & Gynecology
DX: Z12.31 Encounter for screening mammogram for malignant neoplasm of breast (principal)
CPT/HCPCS: 77067

== ENCOUNTER 2020-03-23 09:22 | Emergency (ER) | payer BC ==
[~2020-03-23] VITALS: Ht 149 cm; Wt 76.7 kg
[2020-03-23] MEDS ORDERED: ETHI1TAB19 (09:37)
[2020-03-23 09:51] LABS: BILIRUBIN,URINE NEGATIVE (NEGATIVE); CLARITY,URINE CLEAR; COLOR,URINE YELLOW; GLUCOSE, URINE (UA) NEGATIVE (NEGATIVE); KETONES,URINE TRACE (NEGATIVE); LEUKOCYTE ESTERASE ,URINE TRACE (NEGATIVE); NITRITE,URINE NEGATIVE (NEGATIVE); PROTEIN,URINE NEGATIVE (NEGATIVE)
[2020-03-23] MEDS ORDERED: LACTATED RINGERS 1,000 ML IV ONE ×2 (09:54→10:10)
[2020-03-23 09:59] LABS: RBC,URINE 0-2 /HPF; WBC,URINE RARE /HPF
[2020-03-23 10:00] LABS: BACTERIA,URINE TRACE /HPF
[2020-03-23] MEDS ORDERED: KETOROLAC 30 MG/ML VIAL IVP ONE (10:00)
[2020-03-23] MEDS ORDERED: PANTOPRAZOLE 40 MG (PROTONIX) VIAL IV ONE (10:00)
--- NOTE | 2020-03-23 10:01 | ED Abdominal Pain ---
General Chief Complaint: Abdominal/GI Problems Stated Complaint: UPPER ABD PAIN Nursing Triage Note: HX OF GALL BLADDER PROBLEMS AND STARTED HAVING MID ABDOMINAL PAIN AFTER EATING RIB CRIB LAST NIGHT. Sepsis Screen: No Definite Risk Source of Information: Patient Exam Limitations: No Limitations History of Present Illness Date Seen by Provider: March 23, 2020 Time Seen by Provider: 09:39 Initial Comments Patient presents to ER by private conveyance with chief complaint of midepigastric and right upper quadrant abdominal pain started about 1:00 this morning. She's used Pepto-Bismol and Tums with no relief. She is associated with her gallbladder which has been problematic for the past couple weeks with increasing belching, pain and occasional nausea. She is not nauseated now. She's had no fevers chills cough shortness of breath. She had her gallbladder worked up the same time she had appendectomy about 8 years ago. Her gallbladder had poor emptying at that time but they elected not to have it out. 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 She's had no other abdominal surgeries. She's having no dysuria diarrhea or constipation. Never had pancreatitis or hyperlipidemia. She does not have diabetes nor does she drink alcohol. Last oral intake was rib crib, ribs yesterday evening. She is to follow-up with Dr. Diana but has not established a new primary care doctor yet. Before coming to the ER she rated her pain 12 out of 10 however now she says it 's about a 3 out of 10 at rest. Allergies and Home Medications Allergies Coded Allergies: Sulfa (Sulfonamide Antibiotics) (Verified Allergy, Mild, ITCHING, 05/12/18) fentanyl (Unverified Allergy, Unknown, NAUSEA AND VOMITING, 05/12/18) Home Medications Aspirin 81 Mg Tablet., 81 MG PO DAILY, (Reported) Enalapril Maleate 20 Mg Tablet, 20 MG PO HS, (Reported) Ethinyl Estradiol/Drospirenone 1 Each Tablet, 1 EACH PO DAILY, (Reported) Patient Home Medication List Home Medication List Reviewed: Yes Review of Systems Review of Systems Constitutional: No chills, No diaphoresis EENTM: No Blurred Vision, No Double Vision Respiratory: Denies Cough, Denies Shortness of Air Cardiovascular: Denies Chest Pain, Denies Edema Gastrointestinal: Abdominal Pain; Denies Constipated, Denies Diarrhea, Denies Nausea, Denies Vomiting Genitourinary: Denies Burning, Denies Discharge Musculoskeletal: No back pain, No joint pain Skin: No pruritus, No rash Psychiatric/Neurological: Denies Anxiety, Denies Depressed All Other Systems Reviewed Negative Unless Noted: Yes Past Ctyqbmd-Jefdya-Euxpfy Hx Patient Social History Alcohol Use: Denies Use Recreational Drug Use: No Smoking Status: Never a Smoker Recent Foreign Travel: No Contact w/Someone Who Travel: No Recent Infectious Disease Expo: No Recent Hopitalizations: No Immunizations Up To Date Date of Pneumonia Vaccine: Aug 25, 2017 Date of Influenza Vaccine: Aug 08, 2017 Seasonal Allergies Seasonal Allergies: Yes Past Medical History Surgeries: Yes (ULNER NERVE LEFT HAND, RIGHT TKR) Respiratory: No Cardiac: Yes Hypertension Neurological: No Reproductive Disorders: No Female Reproductive Disorders: Denies Sexually Transmitted Disease: No HIV/AIDS: No Genitourinary: No Gastrointestinal: Yes Gastroesophageal Reflux, Gall Bladder Disease Musculoskeletal: Yes Arthritis Endocrine: No HEENT: Yes (GLASSES) Loss of Vision: Bilateral Hearing Impairment: Denies Cancer: Yes (APPENDIX) What Type of Treatment Did You: Surgical Intervention Psychosocial: No Integumentary: Yes (IN WINTER) Eczema Blood Disorders: No Adverse Reaction/Blood Tranf: No (N/A) Family Medical History Cardiovascular disease Hypertension Respiratory disorder Visual disorder Physical Exam Vital Signs Vital Signs - First Documented 03/23/20 09:25 Temp 37.0 Pulse 117 Resp 16 B/P (MAP) 135/82 (99) Pulse Ox 98 O2 Delivery Room Air Capillary Refill : Less Than 3 Seconds Height/Weight/BMI Height: 4'11.00" Weight: 164lbs. 4.0oz. 74.602808zo; 34.00 BMI Method:Stated General Appearance: WD/WN, no apparent distress HEENT: PERRL/EOMI, pharynx normal Neck: full range of motion, normal inspection Respiratory: lungs clear, normal breath sounds, no respiratory distress, no accessory muscle use Cardiovascular: normal peripheral pulses, regular rate, rhythm, no edema, tachycardia (115) Peripheral Pulses: 2+ Radial Pulses (R), 2+ Radial Pulses (L) Gastrointestinal: normal bowel sounds, soft, tenderness (mild epigastric and moderate right upper quadrant without Rivers sign. Negative for psoas sign.) Extremities: normal range of motion, non-tender, normal inspection, normal capillary refill Neurologic/Psychiatric: alert, normal mood/affect, oriented x 3 Skin: normal color, warm/dry Focused Exam Lactate Level 03/23/20 10:15: Lactic Acid Level 2.85*H Lactic Acid Level Laboratory Tests Test 03/23/20 10:15 Lactic Acid Level 2.85 MMOL/L (0.50-2.00) *H Progress/Results/Core Measures Results/Orders Lab Results Laboratory Tests Test 03/23/20 09:39 03/23/20 09:55 03/23/20 10:15 Range/Units Urine Color YELLOW Urine Clarity CLEAR Urine pH 6.0 5-9 Urine Specific [place] 1.020 1.016-1.022 Urine Protein NEGATIVE NEGATIVE Urine Glucose (UA) NEGATIVE NEGATIVE Urine Ketones TRACE H NEGATIVE Urine Nitrite NEGATIVE NEGATIVE Urine Bilirubin NEGATIVE NEGATIVE Urine Urobilinogen 0.2 < = 1.0 MG/DL Urine Leukocyte Esterase TRACE H NEGATIVE Urine RBC (Auto) 1+ H NEGATIVE Urine RBC 0-2 /HPF Urine WBC RARE /HPF Urine Squamous Epithelial Cells 5-10 /HPF Urine Crystals NONE /LPF Urine Bacteria TRACE /HPF Urine Casts NONE /LPF Urine Mucus MODERATE H /LPF Urine Culture Indicated YES White Blood Count 12.5 H 4.3-11.0 10^3/uL Red Blood Count 4.73 4.35-5.85 10^6/uL Hemoglobin 13.1 11.5-16.0 G/DL Hematocrit 39 35-52 % Mean Corpuscular Volume 82 80-99 FL Mean Corpuscular Hemoglobin 28 25-34 PG Mean Corpuscular Hemoglobin Concent 34 32-36 G/DL Red Cell Distribution Width 13.1 10.0-14.5 % Platelet Count 390 130-400 10^3/uL Mean Platelet Volume 10.3 7.4-10.4 FL Neutrophils (%) (Auto) 63 42-75 % Lymphocytes (%) (Auto) 28 12-44 % Monocytes (%) (Auto) 6 0-12 % Eosinophils (%) (Auto) 3 0-10 % Basophils (%) (Auto) 0 0-10 % Neutrophils # (Auto) 7.9 H 1.8-7.8 X 10^3 Lymphocytes # (Auto) 3.5 1.0-4.0 X 10^3 Monocytes # (Auto) 0.7 0.0-1.0 X 10^3 Eosinophils # (Auto) 0.4 H 0.0-0.3 10^3/uL Basophils # (Auto) 0.1 0.0-0.1 10^3/uL Prothrombin Time 12.2 12.2-14.7 SEC INR Comment 0.9 0.8-1.4 Activated Partial Thromboplast Time 28 24-35 SEC Sodium Level 138 135-145 MMOL/L Potassium Level 4.1 3.6-5.0 MMOL/L Chloride Level 104 98-107 MMOL/L Carbon Dioxide Level 23 21-32 MMOL/L Anion Gap 11 5-14 MMOL/L Blood Urea Nitrogen 17 7-18 MG/DL Creatinine 0.82 0.60-1.30 MG/DL Estimat Glomerular Filtration Rate > 60 BUN/Creatinine Ratio 21 Glucose Level 110 H 70-105 MG/DL Calcium Level 10.2 H 8.5-10.1 MG/DL Corrected Calcium 10.1 8.5-10.1 MG/DL Total Bilirubin 0.3 0.1-1.0 MG/DL Aspartate Amino Transf (AST/SGOT) 28 5-34 U/L Alanine Aminotransferase (ALT/SGPT) 20 0-55 U/L Alkaline Phosphatase 90 40-136 U/L C-Reactive Protein High Sensitivity 1.02 H 0.00-0.50 MG/DL Total Protein 7.9 6.4-8.2 GM/DL Albumin 4.1 3.2-4.5 GM/DL Lipase 34 8-78 U/L Lactic Acid Level 2.85 *H 0.50-2.00 MMOL/L My Orders Orders - BETO SHELDON Ua Culture If Indicated (03/23/20 09:26) Ed Iv/Invasive Line Start (03/23/20 09:54) Lactated Ringers (Lr 1000 Ml Iv Solution (03/23/20 09:54) Us Gallbladder [id number] (03/23/20 09:54) Cbc With Automated Diff (03/23/20 09:54) Comprehensive Metabolic Panel (03/23/20 09:54) Hs C Reactive Protein (03/23/20 09:54) Lipase (03/23/20 09:54) Pantoprazole Injection (Protonix Injecti (03/23/20 10:00) Ketorolac Injection (Toradol Injection) (03/23/20 10:00) Urine Culture (03/23/20 09:39) Blood Culture (03/23/20 10:10) Protime With Inr (03/23/20 10:10) Partial Thromboplastin Time (03/23/20 10:10) Chest 1 View, Ap/Pa Only (03/23/20 10:10) Ed Iv/Invasive Line Start (03/23/20 10:10) Ed Iv/Invasive Line Start (03/23/20 10:10) Vital Signs Adult Sepsis Patie Q15M (03/23/20 10:10) O2 (03/23/20 10:10) Remove Rings In Anticipation O (03/23/20 10:10) Lactic Acid Analyzer (03/23/20 10:10) Lactated Ringers (Lr 1000 Ml Iv Solution (03/23/20 10:10) Ceftriaxone For Iv Use (Rocephin For I (03/23/20 10:15) Metronidazole 500mg/100ml Ivpb (Flagyl 5 (03/23/20 10:15) Medications Given in ED Current Medications Medications Dose Ordered Sig/Margarita Route Start Time Stop Time Status Last Admin Dose Admin Ceftriaxone Sodium 1000 mg/ Sterile Water 10 ml @ 200 mls/hr ONCE ONCE IV 03/23/20 10:15 03/23/20 10:17 DC 03/23/20 11:37 200 MLS/HR Ketorolac Tromethamine 30 mg ONCE ONCE IVP 03/23/20 10:00 03/23/20 10:01 DC 03/23/20 10:05 30 MG Lactated Ringer's 1,000 ml @ 0 mls/hr Q0M ONCE IV 03/23/20 09:54 03/23/20 09:56 DC 03/23/20 10:05 1,000 MLS/HR Lactated Ringer's 1,000 ml @ 0 mls/hr Q0M ONCE IV 03/23/20 10:10 03/23/20 10:12 DC 03/23/20 11:05 1,000 MLS/HR Metronidazole 100 ml @ 100 mls/hr ONCE ONCE IV 03/23/20 10:15 03/23/20 11:14 DC 03/23/20 11:42 100 MLS/HR Pantoprazole 40 mg ONCE ONCE IV 03/23/20 10:00 03/23/20 10:01 DC 03/23/20 10:05 40 MG Vital Signs/I&O 03/23/20 09:25 Temp 37.0 Pulse 117 Resp 16 B/P (MAP) 135/82 (99) Pulse Ox 98 O2 Delivery Room Air Blood Pressure Mean: 99 Progress Progress Note #1: Time: 10:00 Progress Note Toradol, pantoprazole, IV fluids, ultrasound gallbladder, labs and urinalysis. Patient has persistent tachycardia which could be related to pain. She has no elevated white count then we will get a septic workup. Progress Note #2: Time: 11:19 Progress Note Patient's pain is controlled she has no nausea. While she does technically meet septic criteria for heart rate has improved to 100. She still has about half of her fluids to go. We left a message with Dr. Burnham, General Surgery and on-call and he'll call us back. We'll discuss whether she might be a candidate for outpatient management. Progress Note #3: Time: 12:04 Progress Note Discussed case with Dr. Burnham and he says he will come down and visit with the patient and see if she wants to get her gallbladder out today. Progress Note #4: Time: 12:[address] Burnham came to the ER reviewed the patient's imaging labs and vital signs as well as the HIDA scan from 2010. She had positive pain on administration of cholecystokinin and no ejection fraction. He would prefer to see her in the clinic if she is comfortable and repeat a HIDA scan. Patient is in agreement with this plan. Plan to put her out with some ondansetron, omeprazole and a few hydrocodone as necessary. Diagnostic Imaging Diagonstic Imaging: Ultrasound Plain Films/CT/US/NM/MRI: abdomen (gallbladder) Comments NAME: GILBERTO ALVAREZ MED REC#: [id number] PT STATUS: REG ER : 1970 PHYSICIAN: BETO SHELDON MD ADMIT DATE: 03/23/20/ER Draft Date of Exam:03/23/20 US GALLBLADDER [id number] Clinical Indications: Patient with upper abdominal pain. EXAM: Right upper quadrant ultrasound. Comparisons: CT scan of the abdomen and pelvis without contrast dated 05/30/2014. FINDINGS: The liver has normal echogenicity and echotexture. The liver surface is smooth. The liver measures 16.5 cm in craniocaudal dimension. The main portal vein demonstrates normal biphasic hepatopetal flow. The liver surface is smooth. There is no liver mass. There is no intrahepatic or extra hepatic ductal dilation. Common bile duct measures 5 mm. Gallbladder is moderately fluid distended with no stones or mass. Upper limits of normal gallbladder wall thickening of 3 mm. There is no pericholecystic fluid or sonographic Rivers sign. Patient body habitus and overlying bowel gas obscures the pancreas and it is not visualized on this exam. Visualized portions of the abdominal aorta and IVC are unremarkable as visualized. Right kidney has normal cortical thickness with no hydronephrosis or mass. Right kidney measures 10 cm in craniocaudal dimension. There is no abdominal ascites. IMPRESSION: 1: Incomplete visualization of the pancreas due to overlying bowel gas and patient body habitus. If there is clinical concern for pancreatic abnormality, serology tests or CT scan may better evaluate. 2: Otherwise, unremarkable ultrasound of the right upper quadrant. Dictated on workstation # [id number] Dict: 03/23/20 1057 Trans: 03/23/20 1107 [facility] [id number] Interpreted by: SHAHBAZ CANCHOLA MD Electronically signed by: Reviewed: Reviewed by Me Diagonstic Imaging: Xray Plain Films/CT/US/NM/MRI: chest Comments [facility] [place] NAME: GILBERTO ALVAREZ [facility] REC#: [id number] PT STATUS: REG ER : 1970 PHYSICIAN: BETO SHELDON MD ADMIT DATE: 03/23/20/ER Draft Date of Exam:03/23/20 CHEST 1 VIEW, AP/PA ONLY INDICATION: Mid abdominal pain. TIME OF EXAM: 10:18 a.m. COMPARISON: Comparison is made with prior chest from 11/05/2017. FINDINGS: The heart size is normal. The pulmonary vascularity is unremarkable. The lungs are clear. No infiltrate, effusion or pneumothorax is detected. IMPRESSION: No acute cardiopulmonary process is detected. Dictated on workstation # [id number] Dict: 03/23/20 1032 Trans: 03/23/20 1035 [facility] [id number] Interpreted by: KINA GRAY MD Electronically signed by: Reviewed: Reviewed by Me Departure Impression Primary Impression: Biliary colic Disposition: HOME, SELF-CARE Condition: Stable Departure-Patient Inst. Decision time for Depature: 12:49 Referrals: FLAQUITO BURNHAM FLOYD R MD (PCP/Family) Primary Care Physician Patient Instructions: Gallbladder Diet, Acute Abdomen (Belly Pain), Adult (DC) Add. Discharge Instructions: Avoid greasy foods, dairy, red meats, spicy foods. Drink plenty of fluids. High-fiber diet. Tylenol 1000 mg every 8 hours as needed for pain. Ibuprofen 800 mg every 8 hours as needed for pain. Rolaids, Tums, Mylanta/Maalox etc. as necessary for pain. Omeprazole 20 mg twice a day or 40 mg daily. Set up a HIDA scan by calling the outpatient Center and scheduling an appointment. Plan to follow up with Dr. Burnham, General Surgery after your HIDA scan has been completed. Ondansetron one tablet every 6 hours as needed for nausea. Return to the ER if you have fever, intractable pain or nausea. Hydrocodone one tablet every 6 hours as needed for breakthrough pain. All discharge instructions reviewed with patient and/or family. Voiced understanding. Scripts Hydrocodone/Acetaminophen (Hydrocodone-Acetamin 5-325 mg) 1 Each Tablet 1 EACH PO Q6H PRN for PAIN-BREAKTHROUGH, #12 TAB 0 Refills Prov: BETO SHELDON 03/23/20 Ondansetron (Ondansetron Odt) 4 Mg Tab.rapdis 4 MG PO Q6H PRN for NAUSEA/VOMITING, #15 TAB 0 Refills Prov: BETO SHELDON 03/23/20 Work/School Note: Work Release Form Date Seen in the Emergency Department: March 23, 2020 Return to Work: March 27, 2020 Restrictions: No Restrictions BETO SHELDON March 23, 2020 10:01
[2020-03-23 10:07] LABS: BASOPHILS # (AUTO) 0.1 10^3/uL (0.0-0.1); BASOPHILS % (AUTO) 0 % (0-10); EOSINOPHILS # (AUTO) 0.4 10^3/uL (0.0-0.3); EOSINOPHILS % (AUTO) 3 % (0-10); HEMATOCRIT 39 % (35-52); HEMOGLOBIN 13.1 G/DL (11.5-16.0); LYMPHOCYTES # (AUTO) 3.5 X 10^3 (1.0-4.0); LYMPHOCYTES % (AUTO) 28 % (12-44); MEAN CORPUSCULAR HEMOGLOBIN 28 PG (25-34); MEAN CORPUSCULAR HGB CONC 34 G/DL (32-36); MEAN CORPUSCULAR VOLUME 82 FL (80-99); MEAN PLATELET VOLUME 10.3 FL (7.4-10.4); MONOCYTES # (AUTO) 0.7 X 10^3 (0.0-1.0); MONOCYTES % (AUTO) 6 % (0-12); NEUTROPHILS # (AUTO) 7.9 X 10^3 (1.8-7.8); NEUTROPHILS % (AUTO) 63 % (42-75); PLATELET COUNT 390 10^3/uL (130-400); RED CELL DISTRIBUTION WIDTH 13.1 % (10.0-14.5); WHITE BLOOD COUNT 12.5 10^3/uL (4.3-11.0)
[2020-03-23] MEDS ORDERED: cefTRIAXone FOR IV USE 1,000 MG in WATER (STERILE) FOR INJECTION 10 ML IV ONE (10:15)
[2020-03-23] MEDS ORDERED: metroNIDAZOLE 500MG/100ML IVPB 100 ML IV ONE (10:15)
[2020-03-23 10:17] LABS: ALBUMIN 4.1 GM/DL (3.2-4.5); CHLORIDE 104 MMOL/L (98-107); POTASSIUM 4.1 MMOL/L (3.6-5.0); SODIUM 138 MMOL/L (135-145)
[2020-03-23 10:18] LABS: CALCIUM 10.2 MG/DL (8.5-10.1)
[2020-03-23 10:19] LABS: GLUCOSE 110 MG/DL (70-105); TOTAL PROTEIN 7.9 GM/DL (6.4-8.2)
[2020-03-23 10:20] LABS: CARBON DIOXIDE 23 MMOL/L (21-32)
[2020-03-23 10:21] LABS: BILIRUBIN,TOTAL 0.3 MG/DL (0.1-1.0)
[2020-03-23 10:22] LABS: INR 0.9 (0.8-1.4); PROTHROMBIN TIME PATIENT 12.2 SEC (12.2-14.7)
[2020-03-23 10:23] LABS: ALKALINE PHOSPHATASE 90 U/L (40-136); CREATININE SERUM 0.82 MG/DL (0.60-1.30); GFR ESTIMATED > 60
[2020-03-23 10:24] LABS: BUN/CREATININE RATIO 21
[2020-03-23 10:26] LABS: ALANINE AMINOTRANSFERASE 20 U/L (0-55); LIPASE 34 U/L (8-78)
--- NOTE | 2020-03-23 10:36 | Diagnostic Imaging Report ---
INDICATION: Mid abdominal pain. TIME OF EXAM: 10:18 a.m. COMPARISON: Comparison is made with prior chest from 11/05/2017. FINDINGS: The heart size is normal. The pulmonary vascularity is unremarkable. The lungs are clear. No infiltrate, effusion or pneumothorax is detected. IMPRESSION: No acute cardiopulmonary process is detected. Dictated by: Dictated on workstation # [id number]
--- NOTE | 2020-03-23 11:06 | NUR ---
LAB STATES THEY ARE GOING TO SEND SOMEONE ELSE TO ATTEMPT BC. PT UPDATED. DENIES NEEDS AT THIS TIME.
--- NOTE | 2020-03-23 11:07 | Diagnostic Imaging Report ---
Clinical Indications: Patient with upper abdominal pain. EXAM: Right upper quadrant ultrasound. Comparisons: CT scan of the abdomen and pelvis without contrast dated 05/30/2014. FINDINGS: The liver has normal echogenicity and echotexture. The liver surface is smooth. The liver measures 16.5 cm in craniocaudal dimension. The main portal vein demonstrates normal biphasic hepatopetal flow. The liver surface is smooth. There is no liver mass. There is no intrahepatic or extra hepatic ductal dilation. Common bile duct measures 5 mm. Gallbladder is moderately fluid distended with no stones or mass. Upper limits of normal gallbladder wall thickening of 3 mm. There is no pericholecystic fluid or sonographic Rivers sign. Patient body habitus and overlying bowel gas obscures the pancreas and it is not visualized on this exam. Visualized portions of the abdominal aorta and IVC are unremarkable as visualized. Right kidney has normal cortical thickness with no hydronephrosis or mass. Right kidney measures 10 cm in craniocaudal dimension. There is no abdominal ascites. IMPRESSION: 1: Incomplete visualization of the pancreas due to overlying bowel gas and patient body habitus. If there is clinical concern for pancreatic abnormality, serology tests or CT scan may better evaluate. 2: Otherwise, unremarkable ultrasound of the right upper quadrant. Dictated by: Dictated on workstation # [id number]
--- NOTE | 2020-03-23 11:35 | NUR ---
LAB UNABLE TO GET 2ND BLOOD CULTURE. DR NOTIFIED WHO IS OK WITH NOT OBTAINING THE 2ND ONE.
[2020-03-23] MEDS ORDERED: ONDA4TAB11 PO (12:52)
[2020-03-23] MEDS ORDERED: HYDR-83 PO (12:52)
[2020-03-23 13:05] VITALS: BP 112/68
== END 2020-03-23 13:05 | disposition home or self-care (01) ==
LOC: EDUNIT# 09:22 → ER 09:25
DX: K80.50 Calculus of bile duct without cholangitis or cholecystitis without obstruction (principal); I10 Essential (primary) hypertension; Z96.651 Presence of right artificial knee joint; Z85.038 Personal history of other malignant neoplasm of large intestine; Z88.2 Allergy status to sulfonamides; Z88.5 Allergy status to narcotic agent; Z79.82 Long term (current) use of aspirin; Z82.49 Family history of ischemic heart disease and other diseases of the circulatory system
CPT/HCPCS: 36415; 71045; 76705; 80053; 81000; 83605; 83690; 84703; 85025; 85610; 85730; 86141; 87040; 87088; 96361; 96365; 96375

== ENCOUNTER → 2020-03-27 | Outpatient (CLI) | payer BC ==
[~2020-03-27] MED LIST changes: +CATHETER FLUSH 10 ML SYR IV PRN; +ETHI1TAB19; +HYDR-83 PO; +ONDA4TAB11 PO
--- NOTE | 2020-03-27 14:39 | Diagnostic Imaging Report ---
INDICATION: Right upper quadrant pain. TECHNIQUE: The patient was administered 5.2 mCi of technetium 99m Choletec intravenously and imaging over the abdomen was performed. After 60 minutes, the patient ingested one can of Ensure and a gallbladder ejection fraction was calculated. FINDINGS: There is homogeneous uptake of activity by the liver. There is prompt excretion of activity into the common duct and gallbladder. Normal passage of activity into the small bowel is noted. The gallbladder ejection fraction is normal at 38%. Normal values are 35% or greater. IMPRESSION: Normal HIDA scan and gallbladder ejection fraction. Dictated by: Dictated on workstation # [id number]
== END ==
LOC: CARD 11:20
PROVIDERS: ATTEND Emergency Medicine
DX: R10.11 Right upper quadrant pain (principal)
CPT/HCPCS: 78227

== ENCOUNTER 2020-04-07 08:09 | Outpatient (RCR) | payer BC ==
[~2020-04-07] VITALS: Ht 149 cm; Wt 75.0 kg
[~2020-04-07 08:09] MED LIST changes: -CATHETER FLUSH 10 ML SYR IV PRN; +FLUO20CA42 PO; +LORA10TA7 PO; +MULT-1136 PO; +OMEP20CA18 PO; +ZOLP5TAB PO
== END 2020-04-07 14:32 | disposition home or self-care (01) ==
LOC: PREOP 08:09
PROVIDERS: ATTEND Surgery
DX: Z01.818 Encounter for other preprocedural examination (principal); Z11.59 Encounter for screening for other viral diseases; K82.8 Other specified diseases of gallbladder
CPT/HCPCS: 87635

== ENCOUNTER → 2020-04-27 | Outpatient (CLI) | payer BC ==
[~2020-04-27] MED LIST changes: +HYDR-4226 PO
[2020-04-27 08:53] LABS: BASOPHILS # (AUTO) 0.1 10^3/uL (0.0-0.1); BASOPHILS % (AUTO) 1 % (0-10); EOSINOPHILS # (AUTO) 1.4 10^3/uL (0.0-0.3); EOSINOPHILS % (AUTO) 13 % (0-10); HEMATOCRIT 35 % (35-52); HEMOGLOBIN 11.7 G/DL (11.5-16.0); LYMPHOCYTES # (AUTO) 4.4 X 10^3 (1.0-4.0); LYMPHOCYTES % (AUTO) 41 % (12-44); MEAN CORPUSCULAR HEMOGLOBIN 28 PG (25-34); MEAN CORPUSCULAR HGB CONC 34 G/DL (32-36); MEAN CORPUSCULAR VOLUME 83 FL (80-99); MEAN PLATELET VOLUME 10.2 FL (7.4-10.4); MONOCYTES # (AUTO) 0.5 X 10^3 (0.0-1.0); MONOCYTES % (AUTO) 5 % (0-12); NEUTROPHILS # (AUTO) 4.4 X 10^3 (1.8-7.8); NEUTROPHILS % (AUTO) 41 % (42-75); PLATELET COUNT 456 10^3/uL (130-400); RED CELL DISTRIBUTION WIDTH 12.8 % (10.0-14.5); WHITE BLOOD COUNT 10.8 10^3/uL (4.3-11.0)
[2020-04-27 08:56] LABS: SMEAR SCAN COMMENT YES
[2020-04-27 09:14] LABS: ALANINE AMINOTRANSFERASE 24 U/L (0-55); ALBUMIN 3.6 GM/DL (3.2-4.5); ALKALINE PHOSPHATASE 93 U/L (40-136); BILIRUBIN,TOTAL 0.2 MG/DL (0.1-1.0); BUN/CREATININE RATIO 14; CALCIUM 9.1 MG/DL (8.5-10.1); CARBON DIOXIDE 22 MMOL/L (21-32); CHLORIDE 106 MMOL/L (98-107); GFR ESTIMATED > 60; GLUCOSE 101 MG/DL (70-105); SODIUM 138 MMOL/L (135-145); TOTAL PROTEIN 6.9 GM/DL (6.4-8.2)
== END ==
LOC: EDSTATUS 08-11 10:57 → ONC 08:42
PROVIDERS: ATTEND Internal Medicine Hematology & Oncology
DX: D12.1 Benign neoplasm of appendix (principal); D47.3 Essential (hemorrhagic) thrombocythemia; D72.829 Elevated white blood cell count, unspecified; E78.5 Hyperlipidemia, unspecified; I10 Essential (primary) hypertension; K58.9 Irritable bowel syndrome, unspecified; R51 Headache
CPT/HCPCS: 80053; 85025; G0463; 99213

== ENCOUNTER → 2020-09-18 | Outpatient (CLI) | payer BC ==
[~2020-09-18] MED LIST changes: +ACHD5005 PO; +ENAL20TA16 PO; -HYDR-83 PO
--- NOTE | 2020-09-18 11:38 | Diagnostic Imaging Report ---
INDICATION: Routine screening. COMPARISON: 09/09/2019 and 09/07/2018. TECHNIQUE: 2D and 3D bilateral screening mammography was performed with CAD. FINDINGS: Both breasts are heterogeneously dense, limiting the sensitivity of mammography. The parenchymal pattern is stable. No mass or malignant appearing microcalcifications are seen. The axillae are unremarkable. IMPRESSION: No mammographic features suspicious for malignancy are identified. ACR BI-RADS Category 1: Negative. Result letter will be mailed to the patient. Note: At least 10% of breast cancer is not imaged by mammography. Dictated by: Dictated on workstation # [id number]
== END ==
LOC: RAD 08:45
PROVIDERS: ATTEND Obstetrics & Gynecology
DX: Z12.31 Encounter for screening mammogram for malignant neoplasm of breast (principal)
CPT/HCPCS: 77063; 77067

== ENCOUNTER → 2021-09-19 | Outpatient (CLI) | payer BC ==
--- NOTE | 2021-09-19 09:44 | Diagnostic Imaging Report ---
Indication: Routine screening. Comparison is made with prior mammogram from 09/18/2020 and 09/09/2019. 2-D and 3-D bilateral screening mammography was performed with CAD. Scattered fibroglandular densities are identified bilaterally. The parenchymal pattern is stable. No mass or malignant-appearing microcalcifications are seen. Axillae are unremarkable. IMPRESSION: BI-RADS Category 1 No mammographic features suspicious for malignancy are identified. ACR BI-RADS Category 1: Negative. Result letter will be mailed to the patient. Note: At least 10% of breast cancer is not imaged by mammography. Dictated by: Dictated on workstation # [id number]
== END ==
LOC: RAD 07:30
PROVIDERS: ATTEND Obstetrics & Gynecology
DX: Z12.31 Encounter for screening mammogram for malignant neoplasm of breast (principal)
CPT/HCPCS: 77063; 77067

== ENCOUNTER → 2022-09-23 | Outpatient (CLI) | payer BC ==
[~2022-09-23] MED LIST changes: +OMEP20TA56 PO; -OMEP20TA7 PO
--- NOTE | 2022-09-23 10:19 | Diagnostic Imaging Report ---
INDICATION: Routine screening. COMPARISON: 09/19/2021 and 09/18/2020. TECHNIQUE: 2D and 3D bilateral screening mammography was performed with CAD. FINDINGS: Scattered fibroglandular densities are identified bilaterally. No spiculated mass or malignant-appearing microcalcifications are seen. Axillae are unremarkable. IMPRESSION: No mammographic features suspicious for malignancy are identified. ACR BI-RADS Category 1: Negative. Result letter will be mailed to the patient. Note: At least 10% of breast cancer is not imaged by mammography. Dictated by: Dictated on workstation # [id number]
== END ==
LOC: RAD 08:15
PROVIDERS: ATTEND Obstetrics & Gynecology
DX: Z12.31 Encounter for screening mammogram for malignant neoplasm of breast (principal)
CPT/HCPCS: 77063; 77067

== ENCOUNTER → 2023-09-24 | Outpatient (CLI) | payer BC ==
[~2023-09-24] MED LIST changes: +ENAL-70 PO; -ENAL20TA16 PO
--- NOTE | 2023-09-24 14:16 | Diagnostic Imaging Report ---
EXAMINATION: 3D bilateral screening mammogram with CAD. INDICATION: Screening. COMPARISON: This study was compared to the prior exams of 09/23/2022, 09/19/2021, and 09/18/2020. PERSONAL HISTORY: At this time, there are no current complaints. FINDINGS: There are scattered fibroglandular densities in both breasts which could obscure a lesion. No primary or secondary sign of malignancy is noted. IMPRESSION: There is no evidence for malignancy. ACR BI-RADS Category 1: Negative. Result letter will be mailed to the patient. Note: At least 10% of breast cancer is not imaged by mammography. Dictated by: Dictated on workstation # [id number]
== END ==
LOC: RAD 06:51
PROVIDERS: ATTEND Nurse Practitioner Women's Health
DX: Z12.31 Encounter for screening mammogram for malignant neoplasm of breast (principal)
CPT/HCPCS: 77063; 77067